=== PATIENT | male | born 1945 | race Hispanic/Latino ===

== ENCOUNTER 2017-04-17 07:47 | Day surgery (SDC) | payer MEDICARE, OTHER ==
[2017-04-08 09:32] VITALS: BMI 29.8
[2017-04-08 11:11] VITALS: RESP 18
[2017-04-17] MEDS ORDERED: Lactated Ringer's 1,000 ML IV ONE ×2 (07:48→07:50)
[2017-04-17] MEDS ORDERED: Lidocaine 1% Inj (20ml) IJ ONE ×3 (07:55→10:01)
[2017-04-17] MEDS ORDERED: Bupivacaine 0.5% 50 ML IJ ONE (08:35)
--- NOTE | 2017-04-17 08:39 | CP.PCM.PN ---
Subjective - Date & Time of Evaluation Date of Evaluation: 04/17/17 Time of Evaluation: 08:38 - Subjective Subjective: 72 y/o male seen in [facility] by podiatry. Pt going to OR this morning for R hallux removal of staple with removal of bone prominence and application of graft. Patient confirms NPO status. Pt questions addressed and answered. Pt denies F/C/ N/V/SOB. PMH: DM type II, HTN PSH: R foot surgery, R knee surgery, R nephrectomy All: NKDA Social: social EtOH; denies cigarette or illicit drug use Objective - Vital Signs/Intake and Output Vital Signs (last 24 hours): Temp Pulse Resp BP Pulse Ox 96.8 F L 56 L 18 140/70 04/08/17 11:09 04/08/17 11:09 04/08/17 11:09 04/08/17 11:09 - Constitutional Appears: Well, Non-toxic, No Acute Distress - Extremities Exam Additional comments: RLE focused exam: Dressing to RLE clean, dry and intact Vasc: DP/PT pulses 2/4. Neuro: Protective sensation grossly diminished - Neurological Exam Neurological Exam: Alert, Awake, Oriented x3 - Psychiatric Exam Psychiatric exam: Normal Affect, Normal Mood Assessment and Plan - Assessment and Plan (Free Text) Assessment: 72 y/o male presents to [facility] for R hallux exostectomy, removal of staple and application of graft Plan: Pt was seen and examined in [facility]. Pt NPO status was confirmed. All Pre-op testing and clearance was in the chart. Pt has exhausted all conservative treatment at this time and is opting for surgical intervention. Pt was explained procedure and post-operative course. All pt's questions were answered to satisfaction. No guarantees were made. Pt understands all risks, benefits and complications of procedure. Pt will follow-up with Dr. Alvarez
[2017-04-17] MEDS ORDERED: Propofol 10 mg/ml Inj (20 ML) ONE (09:19)
[2017-04-17] MEDS ORDERED: Bupivacaine 0.5% Inj(30mL) IJ ONE (09:22)
[2017-04-17] MEDS ORDERED: ceFAZolin 2 GM in Sodium Chloride 0.9% 100 ML IVPB ONE (09:22)
--- NOTE | 2017-04-17 09:25 | CP.SDSHP ---
Same Day Surgery H & P - History Proposed Procedure: R hallux exostectomy, removal of staple, application of graft Pre-Op Diagnosis: R hallux painful hardware, chronic ulcer - Previous Medical/Surgical History Cardiac: Hypertension Endocrine/Metabolic: Diabetes Pain: 4.Moderate Pain Previous Surgical History: R hallux IPJ fusion, R knee surgery, R nephrectomy - Allergies Allergies: Allergies No Known Allergies Allergy (Verified 10/10/15 10:02) - Physical Exam General Appearance: well nourished, in NAD Vital Signs: Vital Signs 04/17/17 04/17/17 08:39 08:50 Temperature 97.8 F Pulse Rate 50 L 50 L Respiratory 18 Rate Blood Pressure 159/68 H O2 Sat by Pulse 98 Oximetry Neuro: Other (protective sensation grossly diminished to R foot) - {Optional Preform as Required} Integument: Other (R hallux ulceration) Ortho: Other (tenderness to palpation of dorsum of R hallux) Short Stay Discharge - Short Stay Discharge Admitting Diagnosis/Reason for Visit: L97.512/E10.40 Disposition: HOME/ ROUTINE Referrals: Margaret Laura MD [Primary Care Provider] - Instructions: RICE Therapy (GEN) Additional Instructions (Diet, Activity): --Patient in good/stable condition for discharge home. Pt to resume medications per medical reconciliation. Resume regular diet. Please keep dressing clean, dry, & intact to surgical site, use plastic bag over bandage for showering, wear post op shoe at all times when ambulating, call clinic if you see signs of infection (redness, swelling, malodor), please make an appointment to see Dr. Alvarez in office/clinic within 1 week for post-op check. Progress Note/Discharge Note with Instructions: - Patient evaluated bedside in recovery s/p surgical procedure. - After surgical procedure patient in NAD - (+) Void, (+) Appetite - Capillary refill time <3s and NVSI intact. - Patient denies complaints at this time - Post operative instructions and plan of care explained to patient at length. - Pt. acknowledges understanding. - Patient stable for DC per podiatric surgery
[2017-04-17] MEDS ORDERED: Oxycodone/Acetaminophen 5/325 mg Tab PO PRN ×2 (11:18)
[2017-04-17] MEDS ORDERED: Lactated Ringer's 1,000 ML IV SCH (11:23)
--- NOTE | 2017-04-17 11:23 | PCM.SURG1 ---
Surgeon's Initial Post Op Note - Surgeon's Notes Surgeon: Dr. Alvarez Vice President [employer]: Seb King PGY-1, Nish Galan PGY-1 Type of Anesthesia: General LMA, Local Anesthesia Administered By: Dr. Taylor Pre-Operative Diagnosis: painful hardware R hallux, chronic non healing ulcer R hallux Operative Findings: see op report. I: 6cc 1% Lidocaine plain. M: 3-0 Vicryl, 4 -0 Vicryl, 4-0 Nylon, 4.0 x 4.5 cm Epifix allograft. specimen: R 1st digit base of proximal phalanx. tourniquet time 67 min R ankle Post-Operative Diagnosis: same Operation Performed: R hallux removal of hardware, debridement of proximal phalanx, application of Epifix Specimen/Specimens Removed: R 1st digit proximal phalangeal base Estimated Blood Loss: EBL {In ML}: 5 Blood Products Given: N/A Drains Used: No Drains Post-Op Condition: Good Date of Surgery/Procedure: 04/17/17 Time of Surgery/Procedure: 10:25
[2017-04-17 14:25] VITALS: TEMP 98.2
[2017-04-17 15:05] VITALS: BP 130/67; PULSE 49; O2SAT 97
--- NOTE | 2017-04-18 01:40 | OP ---
PROCEDURE DATE: 04/17/2017 SURGEON: Wilton Alvarez DPM CAB SUPERVISOR: Seb King DPM PGY1 and Nish Galan DPM PGY 1 ANESTHESIOLOGIST: Dr. Taylor. ANESTHESIA: IV sedation with local. PREOPERATIVE DIAGNOSES: Painful hardware of the right hallux, chronic nonhealing ulcer, right hallux. POSTOPERATIVE DIAGNOSES: Painful hardware of the right hallux, chronic nonhealing ulcer, right hallux. PROCEDURE: Removal of painful hardware with debridement of base of the proximal phalanx with application of EpiFIX graft on Right hallux INDICATIONS: The patient is a 72-year-old male with above diagnosis. The patient has exhausted all conservative treatment at this time and now require surgical intervention. The patient signed the consent after careful explanation of risks, benefits, complications, and alternatives for this surgical procedure. No guarantees were given nor implied. N.p.o. status was confirmed prior to taking the patient to the OR. PREPARATION: The patient was brought into the operating room and placed on the operating room table in a supine position. A time-out was performed for identification of the correct patient and procedure. After induction of IV sedation, the patient received a local 6 mL of 1% lidocaine plain in local block-type fashion to the right medial forefoot. Tourniquet was placed and set at 250 mmHg on the right ankle. The right foot was then prepped and draped in normal saline manner and the procedure began. PROCEDURE: Attention was driven to the right dorsal hallux where the incision extending from the level of MTPJ to the DIPJ was planned and marked using a marking pen. Tourniquet on the right ankle was inflated at this time and the procedure began. Using a #15 blade, a linear incision was placed along the planned site. After a careful identification of all the anatomy, a careful incision was placed and extended to the level of bone. At this time using the sagittal saw approximately 1/6th of the base of the right hallucal proximal phalanx was resected and sent of the operative filed to pathology. Using a football bur, the dorsal aspect of the proximal phalanx was debrided to create a smooth surface. At this time, the attention was driven towards the staple embedded distal lateral aspect of the proximal phalanx. Using a freer, the painful hardware was removed and passed off the operative field. Surgical site was flushed with copious amounts of sterile saline and the EpiFix graft was placed into the surgical bed near the plantar aspect at the level of the MTPJ. 3-0 Vicryl and 4-0 Vicryl were utilized to reapproximate the fascial layer and was brought together. A 4-0 nylon was used to reapproximate the skin and sutures were placed using simple technique. At this time, plantar chronic ulcer was debrided to provide fresh bleeding. EpiFix graft was placed superior to the ulcerated site. EpiFix graft was also held secure at the level of the chronic ulcerated site at the level of sub metatarsal head 1 using Steri-Strips. A fluff dressing was applied to the surgical site using 4 x 4, Kaylie and an Janes bandage. At this time, tourniquet was deflated at 61 minutes. POSTOPERATIVE CONDITION: The patient tolerated the anesthesia and procedure well and was escorted to the recovery room with vital signs stable and neurovascular status intact to the right lower extremity. This patient is to remain full weightbearing to the right lower extremity as tolerated using a surgical shoe. The patient is to followup with Dr. Alvarez in his office. Seb King DPM RICHARD
--- NOTE | 2017-04-18 13:06 | RAD ---
PROCEDURE: Right Foot Radiographs. HISTORY: s/p right foot surgery COMPARISON: 2011. FINDINGS: BONES: Chronic stress fracture of the 2nd metatarsal shaft with exuberant soft tissue calcification. Degenerative changes of the 1st interphalangeal joint and 1st metatarsophalangeal joint with subchondral sclerosis and cyst formation. Associated soft tissue calcification with focal lucency in the subchondral region of the 3rd metatarsal head as well. JOINTS: As above. SOFT TISSUES: Normal. OTHER FINDINGS: None. IMPRESSION: Re- demonstration of severe osteoarthritis and chronic fracture of the a 2nd metatarsal.
== END 2017-04-17 15:50 | disposition home or self-care (01) ==
LOC: H.OPSURG 07:47
PROVIDERS: ATTEND Podiatrist Foot & Ankle Surgery
DX: L97.512 Non-pressure chronic ulcer of other part of right foot with fat layer exposed (principal); E10.40 Type 1 diabetes mellitus with diabetic neuropathy, unspecified; I10 Essential (primary) hypertension; M10.9 Gout, unspecified; N40.0 Benign prostatic hyperplasia without lower urinary tract symptoms; F32.9 Major depressive disorder, single episode, unspecified
CPT/HCPCS: 15002; 15271; 20680; 73630; 82948; 88304; J0690; J2405; J2704; J3010; J7030; J7120; Q4131

== ENCOUNTER 2017-09-18 11:30 | Day surgery (SDC) | payer MEDICARE, OTHER ==
[2017-04-08 09:32] VITALS: BMI 29.8
[2017-09-18] MEDS ORDERED: Lidocaine 1% Inj (20ml) ONE (13:27)
[2017-09-18] MEDS ORDERED: Mineral Oil Light Sterile 25 ml ONE (13:27)
[2017-09-18] MEDS ORDERED: Bupivacaine 0.5% Inj(30mL) ONE (13:27)
--- NOTE | 2017-09-18 13:27 | CP.SDSHP ---
Same Day Surgery H & P - History Proposed Procedure: Debridement of foot ulcer - right foot Pre-Op Diagnosis: Right foot chronic ulceration - Allergies Allergies: Allergies No Known Allergies Allergy (Verified 09/18/17 12:01) - Physical Exam Vital Signs: Vital Signs 09/18/17 12:28 Temperature 98.2 F Pulse Rate 47 L Respiratory 18 Rate Blood Pressure 119/63 O2 Sat by Pulse 100 Oximetry - {Optional Preform as Required} Integument: Other - Date & Time Date: 09/18/17 Time: 13:27 Short Stay Discharge - Short Stay Discharge Admitting Diagnosis/Reason for Visit: E10.621,L97.512 Disposition: HOME/ ROUTINE Referrals: Darrick Funk MD [Primary Care Provider] - Additional Instructions (Diet, Activity): -Patient in good/stable condition for discharge home -Pt to resume medications per medical reconciliation -Resume regular diet Please keep dressing clean, dry, & intact to surgical site -Use plastic bag over bandage for showering -Wear post op shoe at all times when ambulating -Call clinic if you see signs of infection (redness, swelling, malodor) -Please make an appointment to see Dr. Alvarez in office/clinic within 1 week for post-op check Progress Note/Discharge Note with Instructions: - Patient evaluated bedside in recovery s/p surgical procedure. - After surgical procedure patient in NAD - (+) Void, (+) Appetite - Capillary refill time <3s and NVSI intact. - Patient denies complaints at this time - Post operative instructions and plan of care explained to patient at length. - Pt. acknowledges understanding. - Patient stable for DC per podiatric surgery
--- NOTE | 2017-09-18 13:29 | CP.PCM.PN ---
Subjective - Date & Time of Evaluation Date of Evaluation: 09/18/17 Time of Evaluation: 13:27 - Subjective Subjective: 72 year old male patient seen and evaluated in [facility] by podiatry. Patient going to OR today for R hallux application of graft. Patient reports that he was told the case will be under local anesthesia so has not remained NPO. Patient questions addressed and answered. Patient denies F/C/N/V/SOB. PMH: DM type II, HTN PSH: R foot surgery, R knee surgery, R nephrectomy All: NKDA Social: social EtOH; denies cigarette or illicit drug use Objective - Vital Signs/Intake and Output Vital Signs (last 24 hours): Temp Pulse Resp BP Pulse Ox 98.2 F 47 L 18 119/63 100 09/18/17 12:28 09/18/17 12:28 09/18/17 12:28 09/18/17 12:28 09/18/17 12:28 - Constitutional Appears: Well, Non-toxic, No Acute Distress - Extremities Exam Additional comments: Dressing is clean, dry and intact with no strikethrough noted - Neurological Exam Neurological Exam: Alert, Awake, Oriented x3 - Psychiatric Exam Psychiatric exam: Normal Affect, Normal Mood Assessment and Plan - Assessment and Plan (Free Text) Assessment: 72 y/o male presents to [facility] for R hallux application of graft Plan: Pt was seen and examined in [facility]. Pt NPO status was confirmed. All Pre-op testing and clearance was in the chart. Pt has exhausted all conservative treatment at this time and is opting for surgical intervention. Pt was explained procedure and post-operative course. All pt's questions were answered to satisfaction. No guarantees were made. Pt understands all risks, benefits and complications of procedure. Pt will follow-up with Dr. Alvarez
[2017-09-18] MEDS ORDERED: Lidocaine 1% Inj (20ml) IJ ONE (13:32)
[2017-09-18] MEDS ORDERED: Bupivacaine 0.5% Inj(30mL) IJ ONE (13:32)
[2017-09-18] MEDS ORDERED: Sodium Chloride 0.9% 1,000 ML IV SCH (13:45)
[2017-09-18] MEDS ORDERED: Bacitracin Ointment 30 GM TUBE ONE (14:48)
--- NOTE | 2017-09-18 15:34 | PCM.SURG1 ---
Surgeon's Initial Post Op Note - Surgeon's Notes Surgeon: Dr. Wilton Alvarez DPM Carton Liner: Dr. Christian Monsalve DPM PGY-1 Type of Anesthesia: Local Anesthesia Administered By: RN Pre-Operative Diagnosis: Right foot chronic wound Operative Findings: See dictation. M: none. I: Amniovo Post-Operative Diagnosis: Same Operation Performed: Right foot wound debridement with application of sythentic graft Specimen/Specimens Removed: none Estimated Blood Loss: EBL {In ML}: 2 Blood Products Given: N/A Drains Used: No Drains Post-Op Condition: Good Date of Surgery/Procedure: 09/18/17 Time of Surgery/Procedure: 15:33
[2017-09-18 15:49] VITALS: TEMP 98
[2017-09-18 16:58] VITALS: BP 145/78; PULSE 50; RESP 20; O2SAT 97
--- NOTE | 2017-09-28 08:25 | OP ---
PROCEDURE DATE: 09/18/2017 PREOPERATIVE DIAGNOSIS: Chronic wound of plantar right foot. POSTOPERATIVE DIAGNOSIS: Chronic wound of plantar right foot. PROCEDURE: Right foot wound debridement and application of synthetic graft. SURGEON: Wilton Alvarez DPM USER INTERFACE DEVELOPER: Christian Monsalve DPM TYPE OF ANESTHESIA: None. ANESTHESIA ADMINISTERED BY: RN. INDICATIONS: The patient is a 72-year-old male with the above diagnosis. The patient has exhausted all conservative treatments at this time and now requires surgical intervention. The patient signed consent after careful explanation of risks, benefits, complications, and alternatives for surgical procedure. No guarantees were given nor implied. N.p.o. status was confirmed prior to taking the patient to the OR. PREPARATION: The patient was brought into the operating room and placed on the operating room table in a supine position. Timeout was performed for identification of the correct patient and procedure. No tourniquet was used during this procedure and the right lower extremity was prepped and draped in the normal sterile manner. DESCRIPTION OF PROCEDURE: PROCEDURE #1. Attention was then turned to the plantar right foot where a chronic nonhealing ulceration with a hypergranular base measuring 1 cm x 1.2 cm was noted. Using a fresh #15 blade, the hypergranular tissue at the base of the ulcer was debrided down to an appropriate level with healthy bleeding noted. All hyperkeratotic tissue surrounding the ulceration site was debrided down to a normal epidermal level. Once this was completed, 1 mL of Amniovo was injected to multiple areas in and around the wound edges. Following this, an EpiFix synthetic skin graft was applied to the surgical site and held in place using a steri-strip. The wound was then dressed with Adaptic and dry sterile dressing. POSTOPERATIVE CONDITION: The patient tolerated the procedure well and was escorted to the recovery room with vital signs stable and neurovascular status intact to the right lower extremity. The patient is to remain partial weightbearing to his right foot and is to follow up with Dr. Alvarez in his private office in 1 week's time for further evaluation to ensure the healing process is progressing in an appropriate manner. Christian Monsalve DPM Wilton Alvarez DPM [facility] # [id number] R[place]ARD
== END 2017-09-18 16:55 | disposition home or self-care (01) ==
LOC: H.OPSURG 11:30
PROVIDERS: ATTEND Podiatrist Foot & Ankle Surgery
DX: E10.621 Type 1 diabetes mellitus with foot ulcer (principal); L97.512 Non-pressure chronic ulcer of other part of right foot with fat layer exposed; I10 Essential (primary) hypertension
CPT/HCPCS: 15275; 82948; J7030; J7040; Q4131; Q4139

== ENCOUNTER 2018-02-02 19:25 | Inpatient (IN) | payer MEDICARE, OTHER ==
[2018-02-02 19:25] VITALS: BMI 29.4
[2018-02-02] MEDS ORDERED: Sodium Chloride 0.9% 1,000 ML IV STA (21:24)
--- NOTE | 2018-02-02 21:42 | ED PDOC ---
HPI: General Adult Time Seen by Provider: 02/02/18 19:53 Chief Complaint (Nursing): Fever Chief Complaint (Provider): Fever History Per: Patient History/Exam Limitations: no limitations Onset/Duration Of Symptoms: Days (x1) Current Symptoms Are (Timing): Still Present Additional Complaint(s): 72 year old male presents to the ED with a fever for 1 day. Patient denies vomiting and diarrhea but has mild leg swelling. Denies abdominal pain, CP, and SOB. Patient had a cardiac angio on Thursday with Dr. Keith.(however when i spoke to dr keith he clarified it was not with him, it was with someone else, at [facility]) PMD: Brenda Edmonds Past Medical History Reviewed: Historical Data, Nursing Documentation, Vital Signs Vital Signs: Last Vital Signs Temp 98 F 02/03/18 04:50 Pulse 65 02/03/18 04:50 Resp 18 02/03/18 04:50 BP 145/70 02/03/18 04:50 Pulse Ox 98 02/03/18 04:50 - Medical History PMH: Arthritis, Benign Prostatic Hyperplasia, Depression, Diabetes, HTN, Hypercholesterolemia, Kidney Stones, Chronic Kidney Disease - Surgical History Other surgeries: Knee replacement - Family History Family History: States: Unknown Family Hx - Social History Current smoker - smoking cessation education provided: No Alcohol: None Drugs: Denies - Home Medications Home Medications: Ambulatory Orders Medication Instructions Recorded Allopurinol [Zyloprim] 300 mg PO DAILY 10/19/15 Aspirin [Aspirin Chewable] 81 mg PO DAILY 10/19/15 Atorvastatin [Lipitor] 10 mg PO DAILY 10/19/15 Finasteride [Proscar] 5 mg PO DAILY 10/19/15 Insulin Aspart, Recombinant 20 unit SC BID 10/19/15 [Novolog] Insulin Detemir [Levemir] 50 unit SC BID 10/19/15 Lisinopril [Zestril] 20 mg PO BID 10/19/15 Pregabalin [Lyrica] 150 mg PO BID 10/19/15 Sertraline [Zoloft] 50 mg PO DAILY 10/19/15 - Allergies Allergies/Adverse Reactions: Allergies Allergy/AdvReac Type Severity Reaction Status Date / Time No Known Allergies Allergy Verified 02/02/18 19:39 Review of Systems ROS Statement: Except As Marked, All Systems Reviewed And Found Negative Constitutional: Positive for: Fever Cardiovascular: Negative for: Chest Pain Respiratory: Negative for: Shortness of Breath Gastrointestinal: Negative for: Vomiting, Abdominal Pain, Diarrhea Musculoskeletal: Positive for: Other (mild leg swelling) Physical Exam - Reviewed Nursing Documentation Reviewed: Yes Vital Signs Reviewed: Yes - Physical Exam Appears: Positive for: Non-toxic, No Acute Distress Head Exam: Positive for: ATRAUMATIC, NORMOCEPHALIC Skin: Positive for: Normal Color, Warm, Dry Eye Exam: Positive for: Normal appearance Neck: Positive for: Normal, Painless ROM Cardiovascular/Chest: Positive for: Regular Rate, Rhythm. Negative for: Murmur Respiratory: Positive for: Normal Breath Sounds. Negative for: Wheezing, Respiratory Distress Gastrointestinal/Abdominal: Positive for: Normal Exam, Soft. Negative for: Tenderness Extremity: Positive for: Normal ROM Neurologic/Psych: Positive for: Alert, Oriented. Negative for: Motor/Sensory Deficits - Laboratory Results Result Diagrams: 02/02/18 21:48 02/03/18 04:20 - ECG O2 Sat by Pulse Oximetry: 98 (RA) Pulse Ox Interpretation: Normal Medical Decision Making Medical Decision Making: Initial Impression: fever post angiogram several days ago rule out penumonia, uti, other sources Initial Plan: CMP CBC Chest X-ray Glucose Sodium chloride 1000mL IV Tylenol 650mg PO Blood culture Urine C&S Urinalysis 22:[address] Keith cardiology and Dr. Ball who is ID . Dr. Ball is requesting 1gm of vancomycin and to admit to hospitalist.. 23:00 Dr. Linder accepted patient for admission. 23:43 -Right foot toes are noted to be slightly erythematous. Hematoma on left upper extremity shows no cellulitis. 23:46 -Patient has a surgical history of right foot debridement. Scribe Attestation: Documented by Mynor Lopez acting as a scribe for Stephanie Michaud MD. Provider Scribe Attestation: All medical record entries made by the Scribe were at my direction and personally dictated by me. I have reviewed the chart and agree that the record accurately reflects my personal performance of the history, physical exam, medical decision making, and the department course for this patient. I have also personally directed, reviewed, and agree with the discharge instructions and disposition. Disposition - Clinical Impression Clinical Impression: Fever in adult - Patient ED Disposition Is Patient to be Admitted: Yes Counseled Patient/Family Regarding: Studies Performed, Diagnosis - Disposition Disposition Time: 23:45 Condition: STABLE
[2018-02-02 21:59] LABS: SQUAMOUS EPITHIAL < 1 /hpf (0-5); URINE BILIRUBIN NEGATIVE (NEGATIVE); URINE BLOOD SMALL (NEGATIVE); URINE CLARITY SLIGHTY-CLOUDY (Clear); URINE COLOR YELLOW (YELLOW); URINE GLUCOSE (UA) >=500 mg/dL (Normal); URINE LEUKOCYTE ESTERASE NEG Leu/uL (Negative); URINE PROTEIN >=500 mg/dL (NEGATIVE); URINE UROBILINOGEN 0.2-1.0 mg/dL (0.2-1.0)
[2018-02-02 22:00] LABS: BASO # 0.1 K/uL (0.0-0.2); BASO % 0.4 % (0.0-2.0); EOS # 0.1 K/uL (0.0-0.7); EOS % 0.4 % (0.0-4.0); HEMOGLOBIN 14.3 g/dL (12.0-18.0); LYMPH # 1.1 K/uL (1.0-4.3); LYMPH % 8.2 % (20.0-40.0); MEAN CELL VOLUME 82.2 fl (80.0-94.0); MEAN CORPUSCULAR HGB CONC 32.8 g/dL (33.0-37.0); MEAN PLATELET VOLUME 9.2 fl (7.2-11.7); MONO % 7.6 % (0.0-10.0); NEUT # 11.6 K/uL (1.8-7.0); NEUT % 83.4 % (50.0-75.0); PLATELET COUNT 149 K/uL (130-400); RBC 5.31 Mil/uL (4.40-5.90); WHITE BLOOD COUNT 13.8 K/uL (4.8-10.8)
[2018-02-02 22:05] LABS: ALB/GLOB RATIO 1.4 (1.0-2.1); ALBUMIN 4.3 g/dL (3.5-5.0); ALT/SGPT 21 U/L (21-72); AST/SGOT 16 U/L (17-59); BLOOD UREA NITROGEN 23 mg/dl (9-20); CALCIUM 9.7 mg/dL (8.4-10.2); GFR AFRICAN-AMERICAN > 60; GFR NON-AFRICAN AMERICAN 59
[2018-02-02 22:52] LABS: BANDS 4 % (0-2); EOSINOPHIL 1 % (0-7); LYMPHOCYTE 6 % (20-50); MONOCYTE 2 % (0-10); NEUTROPHIL 79 % (42-75); REACTIVE LYMPHOCYTES 8 % (0-0); TOTAL CELLS COUNTED 100
[2018-02-02 22:53] LABS: ANISOCYTOSIS SLIGHT; OVALOCYTES SLIGHT; POIKILOCYTOSIS SLIGHT
[2018-02-02 22:54] LABS: PLATELET ESTIMATE NORMAL (NORMAL)
[2018-02-02] MEDS ORDERED: Vancomycin 1 g Inj ONE (23:08)
--- NOTE | 2018-02-02 23:11 | CP.PCM.HP ---
History of Present Illness - History of Present Illness History of Present Illness: ID: Dr Ball, [facility] safe deposit attendant: Dr Vaughn Chief Complaint: Fever The patient was seen and examined in the ED HPI: 72 years old male with hx of DM, chronic non healing right great toe ulcer , CKD with Cardio Catheterization done on 01/29/18 through the left radial artery approach. He comes with fever that began today, along with chills and mild dizziness. No coughing, nausea, vomits. No throat ache, SOB, chest pain, abdominal pain, Diarrhea, Dysuria. PMH: Arthritis, BPH, Depression, DM II, HTN, HLD, Kidney Stones, CKD;Chronic right gret toe wound;Falls/Unsteady gait PSH: Right knee replacement; right Nephrectomy; Cataract surgery SH: No illegal drug use; No Alcohol; No cigarette smoking FH: States: No known family Hx Allergies: NKDA Medication: Reviewed Present on Admission - Present on Admission Any Indicators Present on Admission: No History of DVT/PE: No History of Uncontrolled Diabetes: No Urinary Catheter: No Decubitus Ulcer Present: No Review of Systems - Constitutional Constitutional: Chills, Fever, Frequent Falls. absent: Headache, Lethargy - EENT Eyes: Requires Corrective Lenses. absent: Blurred Vision, Diplopia, Floaters, Sees Flashes Ears: absent: Decreased Hearing, Ear Discharge, Tinnitus Nose/Mouth/Throat: absent: Epistaxis, Nasal Congestion, Sinus Pain, Sinus Pressure - Cardiovascular Cardiovascular: Lightheadedness. absent: Chest Pain, Dyspnea, Palpitations - Respiratory Respiratory: absent: Cough, Dyspnea, Wheezing, Stridor - Gastrointestinal Gastrointestinal: Constipation. absent: Abdominal Pain, Diarrhea, Nausea, Vomiting - Genitourinary Genitourinary: absent: Dysuria, Flank Pain, Urinary Frequency - Musculoskeletal Musculoskeletal: Arthralgias Additional comments: Right total knee replacement - Integumentary Integumentary: absent: Pruritus, Rash Additional comments: bilateral leg swelling Right great toe ulceration - Neurological Neurological: absent: Confusion, Dizziness, Focal Weakness, Headaches, Weakness - Psychiatric Psychiatric: absent: Anxiety, Depression, Panic Attacks - Endocrine Endocrine: absent: Palpitations, Polydipsia, Polyphagia, Polyuria - Hematologic/Lymphatic Hematologic: absent: Easy Bleeding, Easy Bruising Past Patient History - Past Medical History & Family History Past Medical History?: Yes - Past Social History Smoking Status: Never Smoked Chewing Tobacco Use: No Cigar Use: No Alcohol: None Drugs: Denies Home Situation {Lives}: With Family - CARDIAC Hx Hypercholesterolemia: Yes Hx Hypertension: Yes - PULMONARY Hx Respiratory Disorders: No - NEUROLOGICAL Hx Neurological Disorder: Yes Other/Comment: NUMBNESS FEET - HEENT Hx Cataracts: Yes Other/Comment: RETINA(LASER TX) - RENAL Hx Chronic Kidney Disease: Yes Hx Kidney Stones: Yes - ENDOCRINE/METABOLIC Hx Endocrine Disorders: Yes Hx Diabetes Mellitus Type 1: Yes - HEMATOLOGICAL/ONCOLOGICAL Hx Blood Disorders: No - INTEGUMENTARY Hx Dermatological Problems: No Other/Comment: DIABETIC ULCER - MUSCULOSKELETAL/RHEUMATOLOGICAL Hx Arthritis: Yes - GASTROINTESTINAL Hx Gastrointestinal Disorders: No - GENITOURINARY/GYNECOLOGICAL Hx Prostate Problems: Yes Other/Comment: BPH-ENLARGE PROSTATE - PSYCHIATRIC Hx Depression: Yes - SURGICAL HISTORY Hx Surgeries: Yes Hx Cataract Extraction: Yes Hx Cardiac Catheterization: Yes (January 2018) Hx Joint Replacement: Yes Hx Orthopedic Surgery: Yes (Right TKR) Other/Comment: RIGHT TOTAL KNEE ARTHROPLASTY/RIGHT NEPHRECTOMY - ANESTHESIA Hx Anesthesia: Yes Hx Anesthesia Reactions: No Hx Malignant Hyperthermia: No Meds Allergies/Adverse Reactions: Allergies Allergy/AdvReac Type Severity Reaction Status Date / Time No Known Allergies Allergy Verified 02/02/18 19:39 Physical Exam - Constitutional Appears: No Acute Distress - Head Exam Head Exam: ATRAUMATIC, NORMAL INSPECTION, NORMOCEPHALIC - Eye Exam Eye Exam: EOMI, Normal appearance Pupil Exam: NORMAL ACCOMODATION, PERRL - ENT Exam ENT Exam: Mucous Membranes Moist, Normal Exam, Normal External Ear Exam - Neck Exam Neck exam: Positive for: Full Rom, Normal Inspection. Negative for: Lymphadenopathy, Tenderness - Respiratory Exam Respiratory Exam: Clear to Auscultation Bilateral. absent: Rales, Rhonchi, Wheezes - Cardiovascular Exam Cardiovascular Exam: REGULAR RHYTHM, RRR, +S1, +S2. absent: Gallop, JVD - GI/Abdominal Exam GI & Abdominal Exam: Normal Bowel Sounds. absent: Mass, Organomegaly, Soft, Tenderness - Rectal Exam Rectal Exam: Deferred - Extremities Exam Additional comments: ulceration at plantar aspect of the right great toe with blackened coloration. - Back Exam Back exam: NORMAL INSPECTION. absent: CVA tenderness (L), CVA tenderness (R) - Neurological Exam Neurological exam: Alert, CN II-XII Intact, Oriented x3, Reflexes Normal - Psychiatric Exam Psychiatric exam: Normal Affect, Normal Mood - Skin Skin Exam: Dry, Normal Color, Warm Results - Vital Signs Recent Vital Signs: Last Vital Signs Temp 101.2 F H 02/02/18 22:46 Pulse 86 02/02/18 22:46 Resp 20 02/02/18 22:46 BP 140/74 02/02/18 22:46 Pulse Ox 98 02/02/18 23:01 - Labs Result Diagrams: 02/02/18 21:48 02/02/18 21:48 Labs: Laboratory Results - last 24 hr 02/02/18 02/02/18 02/02/18 19:40 20:00 21:48 WBC 13.8 H D RBC 5.31 Hgb 14.3 Hct 43.6 MCV 82.2 D MCH 27.0 MCHC 32.8 L RDW 17.0 H Plt Count 149 MPV 9.2 Neut % (Auto) 83.4 H Lymph % (Auto) 8.2 L [place] % (Auto) 7.6 Eos % (Auto) 0.4 Baso % (Auto) 0.4 Neut # (Auto) 11.6 H Lymph # (Auto) 1.1 [place] # (Auto) 1.0 H Eos # (Auto) 0.1 Baso # (Auto) 0.1 Neutrophils % (Manual) 79 H Band Neutrophils % 4 H Lymphocytes % (Manual) 6 L Reactive Lymphs % 8 H Monocytes % (Manual) 2 Eosinophils % (Manual) 1 Platelet Estimate Normal Poikilocytosis (manual Slight Anisocytosis (manual) Slight Ovalocytes Slight Sodium Potassium Chloride Carbon Dioxide Anion Gap BUN Creatinine Est GFR ( Amer) Est GFR (Non-Af Amer) POC Glucose (mg/dL) 293 H 248 H Random Glucose Calcium Total Bilirubin AST ALT Alkaline Phosphatase Total Protein Albumin Globulin Albumin/Globulin Ratio Urine Color Urine Clarity Urine pH Ur Specific [place] Urine Protein Urine Glucose (UA) Urine Ketones Urine Blood Urine Nitrate Urine Bilirubin Urine Urobilinogen Ur Leukocyte Esterase Urine RBC (Auto) Urine Microscopic WBC Ur Squamous Epith Cells 02/02/18 02/02/18 21:48 21:48 WBC RBC Hgb Hct MCV MCH MCHC RDW Plt Count MPV Neut % (Auto) Lymph % (Auto) [place] % (Auto) Eos % (Auto) Baso % (Auto) Neut # (Auto) Lymph # (Auto) [place] # (Auto) Eos # (Auto) Baso # (Auto) Neutrophils % (Manual) Band Neutrophils % Lymphocytes % (Manual) Reactive Lymphs % Monocytes % (Manual) Eosinophils % (Manual) Platelet Estimate Poikilocytosis (manual Anisocytosis (manual) Ovalocytes Sodium 137 Potassium 3.8 Chloride 100 Carbon Dioxide 26 Anion Gap 15 BUN 23 H Creatinine 1.2 Est GFR ( Amer) > 60 Est GFR (Non-Af Amer) 59 POC Glucose (mg/dL) Random Glucose 158 H Calcium 9.7 Total Bilirubin 1.1 AST 16 L ALT 21 Alkaline Phosphatase 85 Total Protein 7.5 Albumin 4.3 Globulin 3.2 Albumin/Globulin Ratio 1.4 Urine Color Yellow Urine Clarity Slighty-cloudy Urine pH 5.0 Ur Specific [place] 1.015 Urine Protein >=500 Urine Glucose (UA) >=500 Urine Ketones Negative Urine Blood Small Urine Nitrate Negative Urine Bilirubin Negative Urine Urobilinogen 0.2-1.0 Ur Leukocyte Esterase Neg Urine RBC (Auto) 4 H Urine Microscopic WBC < 1 Ur Squamous Epith Cells < 1 - Impressions Impression: NSR with 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 Fever #. Leukocytosis #. Dehydration #. DM II with hyperglycemia #. Chronic non healing ulcer at right great toe Plan: 72 years old male with hx of DM, chronic non healing right great toe ulcer, CKD with Cardio Catheterization done on 01/29/18 through the left radial artery approach. He comes with fever that began today, along with chills and mild dizziness. No coughing, nausea, vomits. No throat ache, SOB, chest pain, abdominal pain, Diarrhea, Dysuria. #. Fever etiology unclear in patient who recently had a cardiac cath but also has a chronic non healing ulcer at the right great toe, r/o endocarditis - Consult Dr Ball ID - Consult Dr Vaughn cardiology - Blood culture - Urine culture - ECHO - Vancomycin - #. Leukocytosis - Follow WBC #. Dehydration - IV fluids - Follow renal labs #. DM II with hyperglycemia - Levemir - Lispro sliding scale according to accucheck - HbA1c #. Chronic non healing ulcer at right great toe - consult Dr Alvarez podiatry #. DVT prophylaxis with Lovenox #. Code Status: Full - Date & Time Date: 02/02/18 Time: 23:11
[2018-02-02 23:21] LABS: VENOUS BLOOD GAS BASE EXCESS 1.6 mmol/L (0.0-2.0); VENOUS BLOOD GAS PCO2 33 mmHg (40-60); VENOUS BLOOD GAS PO2 41 mm/Hg (30-55); VENOUS BLOOD PH 7.48 (7.32-7.43)
[2018-02-03] MEDS: Sodium Chloride 0.9% 1,000 ML IV SCH ×3 (01:45→22:08)
[2018-02-03 05:47] LABS: BASO % 0.4 % (0.0-2.0); EOS % 0.4 % (0.0-4.0); HEMOGLOBIN 12.7 g/dL (12.0-18.0); LYMPH # 1.3 K/uL (1.0-4.3); LYMPH % 12.4 % (20.0-40.0); MEAN CELL VOLUME 83.5 fl (80.0-94.0); MEAN CORPUSCULAR HEMOGLOBIN 27.5 pg (27.0-31.0); MEAN PLATELET VOLUME 9.2 fl (7.2-11.7); MONO % 9.4 % (0.0-10.0); NEUT # 8.2 K/uL (1.8-7.0); NEUT % 77.4 % (50.0-75.0); RBC 4.62 Mil/uL (4.40-5.90); RED CELL DISTRIBUTION WIDTH 16.8 % (11.5-14.5); WHITE BLOOD COUNT 10.6 K/uL (4.8-10.8)
[2018-02-03 05:57] LABS: BLOOD UREA NITROGEN 20 mg/dl (9-20); CALCIUM 8.6 mg/dL (8.4-10.2); GFR AFRICAN-AMERICAN > 60; GFR NON-AFRICAN AMERICAN > 60
[2018-02-03] MEDS: Insulin Lispro (humaLOG) 100 Units/ml Inj SC SCH ×4 (06:44→22:09)
--- NOTE | 2018-02-03 09:25 | CP.PCM.CON ---
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 pt. states 4 days ago he had cardiac catheterization donbe from left radial site by and he was told his angiogram was ok , did not get any stenting . he said he has been feeling fine up until yesterday afternoon when he developed shaking chills and his brought him to ED to be further evaluated. pt. denies any cough or sob or any chest pain, he denies any LOERA, denies any abd pain, lauren any nausea or vomiting, lauren any dysurea, denies any diarrhea. He states he is feeling already better today and denies any chills so far today. PMH: Arthritis, BPH, Depression, DM II, HTN, HLD, Kidney Stones, CKD;Chronic right gret toe wound;Falls/Unsteady gait PSH: Right knee replacement; right Nephrectomy; Cataract surgery SH: denies tobacco, denies etoh, denies drugs lives with his Review of Systems - Review of Systems Review of Systems: ROS- + fever and chills yesterday, denies any cough or sob, denies any LOERA, denies any chest pain, denies any abd. pain, denies any nausea or vomiting, denies any dysurea, denies any diarrhea Past Patient History - Past Medical History & Family History Past Medical History?: Yes - Past Social History Alcohol: None Drugs: Denies - CARDIAC Hx Hypercholesterolemia: Yes Hx Hypertension: Yes - NEUROLOGICAL Hx Neurological Disorder: Yes Other/Comment: NUMBNESS FEET - HEENT Hx Cataracts: Yes Other/Comment: RETINA(LASER TX) - RENAL Hx Chronic Kidney Disease: Yes Hx Kidney Stones: Yes - ENDOCRINE/METABOLIC Hx Endocrine Disorders: Yes Hx Diabetes Mellitus Type 2: Yes - HEMATOLOGICAL/ONCOLOGICAL Hx Blood Disorders: No - INTEGUMENTARY Hx Dermatological Problems: No Other/Comment: DIABETIC ULCER - MUSCULOSKELETAL/RHEUMATOLOGICAL Hx Arthritis: Yes - GASTROINTESTINAL Hx Gastrointestinal Disorders: No - GENITOURINARY/GYNECOLOGICAL Hx Prostate Problems: Yes Other/Comment: BPH-ENLARGE PROSTATE - PSYCHIATRIC Hx Depression: Yes - SURGICAL HISTORY Hx Surgeries: Yes Hx Cataract Extraction: Yes Hx Cardiac Catheterization: Yes (January 2018) Hx Joint Replacement: Yes Hx Orthopedic Surgery: Yes (Right TKR) Other/Comment: RIGHT TOTAL KNEE ARTHROPLASTY/RIGHT NEPHRECTOMY - ANESTHESIA Hx Anesthesia: Yes Hx Anesthesia Reactions: No Hx Malignant Hyperthermia: No Meds Allergies/Adverse Reactions: Allergies Allergy/AdvReac Type Severity Reaction Status Date / Time No Known Allergies Allergy Verified 02/02/18 19:39 - Medications Medications: Current Medications Allopurinol (Zyloprim) 300 mg PO DAILY [facility] Amlodipine Besylate (Norvasc) 10 mg PO DAILY [facility] Aspirin (Aspirin Chewable) 81 mg PO DAILY [facility] Atorvastatin Calcium (Lipitor) 10 mg PO DAILY [facility] Enoxaparin Sodium (Lovenox) 40 mg SC DAILY [facility] PRN Reason: Protocol Finasteride (Proscar) 5 mg PO DAILY [facility] Vancomycin HCl 1 gm/ Sodium (Chloride) 250 mls @ 166.667 mls/hr IVPB Q12 [facility] PRN Reason: Protocol Sodium Chloride (Sodium Chloride 0.9%) 1,000 mls @ 100 mls/hr IV .Q10H [facility] Stop: 02/04/18 01:38 Last Admin: 02/03/18 01:45 Dose: 100 mls/hr Insulin Detemir (Levemir) 50 units SC BID [facility] Insulin Human Lispro (Humalog) 0 units SC ACHS [facility] PRN Reason: Protocol Last Admin: 02/03/18 06:44 Dose: 2 u Lisinopril (Zestril) 20 mg PO BID [facility] Pregabalin (Lyrica) 150 mg PO BID [facility] Sertraline HCl (Zoloft) 50 mg PO DAILY [facility] Physical Exam - Constitutional Appears: No Acute Distress - Head Exam Head Exam: ATRAUMATIC - Eye Exam Eye Exam: EOMI - ENT Exam ENT Exam: Normal Oropharynx - Neck Exam Neck exam: Positive for: Full Rom - Respiratory Exam Respiratory Exam: Clear to Auscultation Bilateral, NORMAL BREATHING PATTERN - Cardiovascular Exam Cardiovascular Exam: RRR, +S1, +S2 - GI/Abdominal Exam GI & Abdominal Exam: Normal Bowel Sounds, Soft Additional comments: NT, ND - Extremities Exam Additional comments: right foot eith erythema and slight edema and has the chronic right great toe plantar ulcer mostly dry and healed but has small amost opening at the medial site with malodor present, no obvious discharge left foot no erythema, no ulcers right knee prosthetic joint surgical site clean/dry/intact left arm cath site with echymosis and bruising but no edema, no hematoma - Neurological Exam Neurological exam: Alert, Oriented x3 Results - Vital Signs Recent Vital Signs: Last Vital Signs Temp 97.9 F 02/03/18 08:00 Pulse 56 L 02/03/18 08:00 Resp 20 02/03/18 08:00 BP 176/82 H 02/03/18 08:00 Pulse Ox 97 02/03/18 08:00 - Labs Result Diagrams: 02/03/18 04:20 02/03/18 04:20 Labs: Laboratory Results - last 24 hr 02/02/18 02/02/18 02/02/18 19:40 20:00 21:48 WBC 13.8 H D RBC 5.31 Hgb 14.3 Hct 43.6 MCV 82.2 D MCH 27.0 MCHC 32.8 L RDW 17.0 H Plt Count 149 MPV 9.2 Neut % (Auto) 83.4 H Lymph % (Auto) 8.2 L [place] % (Auto) 7.6 Eos % (Auto) 0.4 Baso % (Auto) 0.4 Neut # (Auto) 11.6 H Lymph # (Auto) 1.1 [place] # (Auto) 1.0 H Eos # (Auto) 0.1 Baso # (Auto) 0.1 Neutrophils % (Manual) 79 H Band Neutrophils % 4 H Lymphocytes % (Manual) 6 L Reactive Lymphs % 8 H Monocytes % (Manual) 2 Eosinophils % (Manual) 1 Platelet Estimate Normal Poikilocytosis (manual Slight Anisocytosis (manual) Slight Ovalocytes Slight pO2 VBG pH VBG pCO2 VBG HCO3 VBG Total CO2 VBG O2 Sat (Calc) VBG Base Excess VBG Potassium Glucose Lactate FiO2 Sodium Potassium Chloride Carbon Dioxide Anion Gap BUN Creatinine Est GFR ( Amer) Est GFR (Non-Af Amer) POC Glucose (mg/dL) 293 H 248 H Random Glucose Calcium Total Bilirubin AST ALT Alkaline Phosphatase Troponin I Total Protein Albumin Globulin Albumin/Globulin Ratio Venous Blood Potassium Urine Color Urine Clarity Urine pH Ur Specific [place] Urine Protein Urine Glucose (UA) Urine Ketones Urine Blood Urine Nitrate Urine Bilirubin Urine Urobilinogen Ur Leukocyte Esterase Urine RBC (Auto) Urine Microscopic WBC Ur Squamous Epith Cells 02/02/18 02/02/18 02/02/18 21:48 21:48 23:18 WBC RBC Hgb Hct MCV MCH MCHC RDW Plt Count MPV Neut % (Auto) Lymph % (Auto) [place] % (Auto) Eos % (Auto) Baso % (Auto) Neut # (Auto) Lymph # (Auto) [place] # (Auto) Eos # (Auto) Baso # (Auto) Neutrophils % (Manual) Band Neutrophils % Lymphocytes % (Manual) Reactive Lymphs % Monocytes % (Manual) Eosinophils % (Manual) Platelet Estimate Poikilocytosis (manual Anisocytosis (manual) Ovalocytes pO2 41 VBG pH 7.48 H VBG pCO2 33 L VBG HCO3 25.7 VBG Total CO2 25.6 VBG O2 Sat (Calc) 88.1 H VBG Base Excess 1.6 VBG Potassium 3.5 L Glucose 111 H Lactate 1.3 FiO2 21.0 Sodium 137 135.0 Potassium 3.8 Chloride 100 102.0 Carbon Dioxide 26 Anion Gap 15 BUN 23 H Creatinine 1.2 Est GFR ( Amer) > 60 Est GFR (Non-Af Amer) 59 POC Glucose (mg/dL) Random Glucose 158 H Calcium 9.7 Total Bilirubin 1.1 AST 16 L ALT 21 Alkaline Phosphatase 85 Troponin I 0.0450 Total Protein 7.5 Albumin 4.3 Globulin 3.2 Albumin/Globulin Ratio 1.4 Venous Blood Potassium 3.5 L Urine Color Yellow Urine Clarity Slighty-cloudy Urine pH 5.0 Ur Specific [place] 1.015 Urine Protein >=500 Urine Glucose (UA) >=500 Urine Ketones Negative Urine Blood Small Urine Nitrate Negative Urine Bilirubin Negative Urine Urobilinogen 0.2-1.0 Ur Leukocyte Esterase Neg Urine RBC (Auto) 4 H Urine Microscopic WBC < 1 Ur Squamous Epith Cells < 1 02/03/18 02/03/18 02/03/18 00:57 04:20 04:20 WBC 10.6 RBC 4.62 Hgb 12.7 Hct 38.6 MCV 83.5 MCH 27.5 MCHC 33.0 RDW 16.8 H Plt Count 128 L D MPV 9.2 Neut % (Auto) 77.4 H Lymph % (Auto) 12.4 L [place] % (Auto) 9.4 Eos % (Auto) 0.4 Baso % (Auto) 0.4 Neut # (Auto) 8.2 H Lymph # (Auto) 1.3 [place] # (Auto) 1.0 H Eos # (Auto) 0.0 Baso # (Auto) 0.0 Neutrophils % (Manual) Band Neutrophils % Lymphocytes % (Manual) Reactive Lymphs % Monocytes % (Manual) Eosinophils % (Manual) Platelet Estimate Poikilocytosis (manual Anisocytosis (manual) Ovalocytes pO2 VBG pH VBG pCO2 VBG HCO3 VBG Total CO2 VBG O2 Sat (Calc) VBG Base Excess VBG Potassium Glucose Lactate FiO2 Sodium 139 Potassium 3.4 L Chloride 106 Carbon Dioxide 25 Anion Gap 11 BUN 20 Creatinine 1.1 Est GFR ( Amer) > 60 Est GFR (Non-Af Amer) > 60 POC Glucose (mg/dL) 119 H Random Glucose 165 H Calcium 8.6 Total Bilirubin AST ALT Alkaline Phosphatase Troponin I Total Protein Albumin Globulin Albumin/Globulin Ratio Venous Blood Potassium Urine Color Urine Clarity Urine pH Ur Specific [place] Urine Protein Urine Glucose (UA) Urine Ketones Urine Blood Urine Nitrate Urine Bilirubin Urine Urobilinogen Ur Leukocyte Esterase Urine RBC (Auto) Urine Microscopic WBC Ur Squamous Epith Cells 02/03/18 05:06 WBC RBC Hgb Hct MCV MCH MCHC RDW Plt Count MPV Neut % (Auto) Lymph % (Auto) [place] % (Auto) Eos % (Auto) Baso % (Auto) Neut # (Auto) Lymph # (Auto) [place] # (Auto) Eos # (Auto) Baso # (Auto) Neutrophils % (Manual) Band Neutrophils % Lymphocytes % (Manual) Reactive Lymphs % Monocytes % (Manual) Eosinophils % (Manual) Platelet Estimate Poikilocytosis (manual Anisocytosis (manual) Ovalocytes pO2 VBG pH VBG pCO2 VBG HCO3 VBG Total CO2 VBG O2 Sat (Calc) VBG Base Excess VBG Potassium Glucose Lactate FiO2 Sodium Potassium Chloride Carbon Dioxide Anion Gap BUN Creatinine Est GFR ( Amer) Est GFR (Non-Af Amer) POC Glucose (mg/dL) 152 H Random Glucose Calcium Total Bilirubin AST ALT Alkaline Phosphatase Troponin I Total Protein Albumin Globulin Albumin/Globulin Ratio Venous Blood Potassium Urine Color Urine Clarity Urine pH Ur Specific [place] Urine Protein Urine Glucose (UA) Urine Ketones Urine Blood Urine Nitrate Urine Bilirubin Urine Urobilinogen Ur Leukocyte Esterase Urine RBC (Auto) Urine Microscopic WBC Ur Squamous Epith Cells Laboratory Results - last 72 hr 02/02/18 02/02/18 02/02/18 19:40 20:00 21:48 WBC 13.8 H D RBC 5.31 Hgb 14.3 Hct 43.6 MCV 82.2 D MCH 27.0 MCHC 32.8 L RDW 17.0 H Plt Count 149 MPV 9.2 Neut % (Auto) 83.4 H Lymph % (Auto) 8.2 L [place] % (Auto) 7.6 Eos % (Auto) 0.4 Baso % (Auto) 0.4 Neut # (Auto) 11.6 H Lymph # (Auto) 1.1 [place] # (Auto) 1.0 H Eos # (Auto) 0.1 Baso # (Auto) 0.1 Neutrophils % (Manual) 79 H Band Neutrophils % 4 H Lymphocytes % (Manual) 6 L Reactive Lymphs % 8 H Monocytes % (Manual) 2 Eosinophils % (Manual) 1 Platelet Estimate Normal Poikilocytosis (manual Slight Anisocytosis (manual) Slight Ovalocytes Slight pO2 VBG pH VBG pCO2 VBG HCO3 VBG Total CO2 VBG O2 Sat (Calc) VBG Base Excess VBG Potassium Glucose Lactate FiO2 Sodium Potassium Chloride Carbon Dioxide Anion Gap BUN Creatinine Est GFR ( Amer) Est GFR (Non-Af Amer) POC Glucose (mg/dL) 293 H 248 H Random Glucose Calcium Total Bilirubin AST ALT Alkaline Phosphatase Troponin I Total Protein Albumin Globulin Albumin/Globulin Ratio Venous Blood Potassium Urine Color Urine Clarity Urine pH Ur Specific [place] Urine Protein Urine Glucose (UA) Urine Ketones Urine Blood Urine Nitrate Urine Bilirubin Urine Urobilinogen Ur Leukocyte Esterase Urine RBC (Auto) Urine Microscopic WBC Ur Squamous Epith Cells 02/02/18 02/02/18 02/02/18 21:48 21:48 23:18 WBC RBC Hgb Hct MCV MCH MCHC RDW Plt Count MPV Neut % (Auto) Lymph % (Auto) [place] % (Auto) Eos % (Auto) Baso % (Auto) Neut # (Auto) Lymph # (Auto) [place] # (Auto) Eos # (Auto) Baso # (Auto) Neutrophils % (Manual) Band Neutrophils % Lymphocytes % (Manual) Reactive Lymphs % Monocytes % (Manual) Eosinophils % (Manual) Platelet Estimate Poikilocytosis (manual Anisocytosis (manual) Ovalocytes pO2 41 VBG pH 7.48 H VBG pCO2 33 L VBG HCO3 25.7 VBG Total CO2 25.6 VBG O2 Sat (Calc) 88.1 H VBG Base Excess 1.6 VBG Potassium 3.5 L Glucose 111 H Lactate 1.3 FiO2 21.0 Sodium 137 135.0 Potassium 3.8 Chloride 100 102.0 Carbon Dioxide 26 Anion Gap 15 BUN 23 H Creatinine 1.2 Est GFR ( Amer) > 60 Est GFR (Non-Af Amer) 59 POC Glucose (mg/dL) Random Glucose 158 H Calcium 9.7 Total Bilirubin 1.1 AST 16 L ALT 21 Alkaline Phosphatase 85 Troponin I 0.0450 Total Protein 7.5 Albumin 4.3 Globulin 3.2 Albumin/Globulin Ratio 1.4 Venous Blood Potassium 3.5 L Urine Color Yellow Urine Clarity Slighty-cloudy Urine pH 5.0 Ur Specific [place] 1.015 Urine Protein >=500 Urine Glucose (UA) >=500 Urine Ketones Negative Urine Blood Small Urine Nitrate Negative Urine Bilirubin Negative Urine Urobilinogen 0.2-1.0 Ur Leukocyte Esterase Neg Urine RBC (Auto) 4 H Urine Microscopic WBC < 1 Ur Squamous Epith Cells < 1 02/03/18 02/03/18 02/03/18 00:57 04:20 04:20 WBC 10.6 RBC 4.62 Hgb 12.7 Hct 38.6 MCV 83.5 MCH 27.5 MCHC 33.0 RDW 16.8 H Plt Count 128 L D MPV 9.2 Neut % (Auto) 77.4 H Lymph % (Auto) 12.4 L [place] % (Auto) 9.4 Eos % (Auto) 0.4 Baso % (Auto) 0.4 Neut # (Auto) 8.2 H Lymph # (Auto) 1.3 [place] # (Auto) 1.0 H Eos # (Auto) 0.0 Baso # (Auto) 0.0 Neutrophils % (Manual) Band Neutrophils % Lymphocytes % (Manual) Reactive Lymphs % Monocytes % (Manual) Eosinophils % (Manual) Platelet Estimate Poikilocytosis (manual Anisocytosis (manual) Ovalocytes pO2 VBG pH VBG pCO2 VBG HCO3 VBG Total CO2 VBG O2 Sat (Calc) VBG Base Excess VBG Potassium Glucose Lactate FiO2 Sodium 139 Potassium 3.4 L Chloride 106 Carbon Dioxide 25 Anion Gap 11 BUN 20 Creatinine 1.1 Est GFR ( Amer) > 60 Est GFR (Non-Af Amer) > 60 POC Glucose (mg/dL) 119 H Random Glucose 165 H Calcium 8.6 Total Bilirubin AST ALT Alkaline Phosphatase Troponin I Total Protein Albumin Globulin Albumin/Globulin Ratio Venous Blood Potassium Urine Color Urine Clarity Urine pH Ur Specific [place] Urine Protein Urine Glucose (UA) Urine Ketones Urine Blood Urine Nitrate Urine Bilirubin Urine Urobilinogen Ur Leukocyte Esterase Urine RBC (Auto) Urine Microscopic WBC Ur Squamous Epith Cells 02/03/18 05:06 WBC RBC Hgb Hct MCV MCH MCHC RDW Plt Count MPV Neut % (Auto) Lymph % (Auto) [place] % (Auto) Eos % (Auto) Baso % (Auto) Neut # (Auto) Lymph # (Auto) [place] # (Auto) Eos # (Auto) Baso # (Auto) Neutrophils % (Manual) Band Neutrophils % Lymphocytes % (Manual) Reactive Lymphs % Monocytes % (Manual) Eosinophils % (Manual) Platelet Estimate Poikilocytosis (manual Anisocytosis (manual) Ovalocytes pO2 VBG pH VBG pCO2 VBG HCO3 VBG Total CO2 VBG O2 Sat (Calc) VBG Base Excess VBG Potassium Glucose Lactate FiO2 Sodium Potassium Chloride Carbon Dioxide Anion Gap BUN Creatinine Est GFR ( Amer) Est GFR (Non-Af Amer) POC Glucose (mg/dL) 152 H Random Glucose Calcium Total Bilirubin AST ALT Alkaline Phosphatase Troponin I Total Protein Albumin Globulin Albumin/Globulin Ratio Venous Blood Potassium Urine Color Urine Clarity Urine pH Ur Specific [place] Urine Protein Urine Glucose (UA) Urine Ketones Urine Blood Urine Nitrate Urine Bilirubin Urine Urobilinogen Ur Leukocyte Esterase Urine RBC (Auto) Urine Microscopic WBC Ur Squamous Epith Cells Assessment & Plan (1) Fever in adult Status: Acute (2) Foot ulcer Status: Acute (3) Leukocytosis Status: Acute (4) History of infection of total joint prosthesis of knee Status: Acute (5) Diabetes Status: Acute - Assessment and Plan (Free Text) Assessment: A/P- 72 year old male with multiple medical conditions including DM II, HTN, BPH, h/ o prosthetic knee joint infection s/p removal of hardware and replacment 4 years ago, nonhealing chronic right great toe ulcer f/u refugio with machine assembler for puller 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 so far the etiology of the fever is unclear, however in light of the malodor present at the right foot ulcer site that is possibly the etiology of the infection. this morning patient is feeling better. UA- neg cxr- no official report but looks negative plan- check blood cx x 2. podiatry consultation and evaluation of the right gret toe ulcer and malodor. s/p 1 dose vanco last night. advise to continue with IV vanco and add zosyn since he is diabetic pending further results. check LE US r/o DVT. check TTE r/o any vegetations. All above d/w patient at length and he verbalizes full understanding of all above.
[2018-02-03] MEDS: Insulin Detemir 100 Units/ml Inj SC SCH ×2 (09:29→17:07)
[2018-02-03] MEDS: Enoxaparin 40 mg Syringe SC SCH (09:31)
--- NOTE | 2018-02-03 10:58 | RAD ---
HISTORY: fever COMPARISON: 04/08/2017 FINDINGS: LUNGS: No active pulmonary disease. PLEURA: No significant pleural effusion identified, no pneumothorax apparent. CARDIOVASCULAR: Normal. OSSEOUS STRUCTURES: No significant abnormalities. VISUALIZED UPPER ABDOMEN: Normal. OTHER FINDINGS: None. IMPRESSION: No focal airspace opacity. Please note that chest radiographs have low sensitivity for small pulmonary nodules. If indicated, chest CT should be obtained.
[2018-02-03] MEDS: Piperacillin/Tazobact 3.375 GM in Sodium Chloride 0.9% 100 ML IVPB SCH ×2 (11:15→17:02)
--- NOTE | 2018-02-03 11:16 | US ---
PROCEDURE: Bilateral lower extremity venous duplex Doppler. HISTORY: bilateral le sweling COMPARISON: None available. TECHNIQUE: Bilateral common femoral, superficial femoral, popliteal and posterior tibial veins were evaluated. Flow was assessed with color Doppler, compressibility, assessment of phasic flow and augmentation response. FINDINGS: COMMON FEMORAL VEIN: Right CFV: Unremarkable. Left CFV: Unremarkable. SUPERFICIAL FEMORAL VEIN: Right SFV: Unremarkable. Left SFV: Unremarkable. POPLITEAL VEIN: Right Popliteal: Unremarkable. Left Popliteal: Unremarkable. POSTERIOR TIBIAL VEIN: Right PTV: Unremarkable. Left PTV: Unremarkable. OTHER FINDINGS: Mild subcutaneous edema bilaterally. IMPRESSION: No evidence of deep venous thrombosis.
--- NOTE | 2018-02-03 14:54 | CP.PCM.PN ---
Subjective - Date & Time of Evaluation Date of Evaluation: 02/03/18 Time of Evaluation: 14:50 - Subjective Subjective: pt states he is feeling well, improved from yesterday no complaints at this time hd stable no acute distress Objective - Vital Signs/Intake and Output Vital Signs (last 24 hours): Temp Pulse Resp BP Pulse Ox 97.6 F 50 L 18 151/71 H 98 02/03/18 12:00 02/03/18 12:00 02/03/18 12:00 02/03/18 12:00 02/03/18 12:00 GEN: WDWN, ALERT, COOPERATIVE HEENT: NCAT, PERRL, EOMI HEART: +S1+S2, RRR NO MRG LUNG: CTAB, NO WRR ABD: SOFT BSX4 NT ND NO HSM NO MASS EXT: WARM, WELL PERFUSED NEURO: AA0X3, STRENGTH AND SENSATION EQUAL AND BILATERAL SKIN: WARM DRY PSYCH: NORMAL MOOD NORMAL AFFECT - Medications Medications: Current Medications Allopurinol (Zyloprim) 300 mg PO DAILY [facility] Last Admin: 02/03/18 09:31 Dose: 300 mg Amlodipine Besylate (Norvasc) 10 mg PO DAILY [facility] Last Admin: 02/03/18 09:27 Dose: 10 mg Aspirin (Aspirin Chewable) 81 mg PO DAILY [facility] Last Admin: 02/03/18 09:30 Dose: 81 mg Atorvastatin Calcium (Lipitor) 10 mg PO DAILY [facility] Last Admin: 02/03/18 09:30 Dose: 10 mg Enoxaparin Sodium (Lovenox) 40 mg SC DAILY [facility] PRN Reason: Protocol Last Admin: 02/03/18 09:31 Dose: 40 mg Finasteride (Proscar) 5 mg PO DAILY [facility] Last Admin: 02/03/18 09:31 Dose: 5 mg Vancomycin HCl 1 gm/ Sodium (Chloride) 250 mls @ 166.667 mls/hr IVPB Q12 [facility] PRN Reason: Protocol Last Admin: 02/03/18 09:27 Dose: 166.667 mls/hr Sodium Chloride (Sodium Chloride 0.9%) 1,000 mls @ 100 mls/hr IV .Q10H [facility] Stop: 02/04/18 01:38 Last Admin: 02/03/18 01:45 Dose: 100 mls/hr Piperacillin Sod/Tazobactam (Sod 3.375 gm/ Sodium Chloride) 100 mls @ 100 mls/ hr IVPB Q8 [facility] PRN Reason: Protocol Insulin Detemir (Levemir) 50 units SC BID [facility] Last Admin: 02/03/18 09:29 Dose: 50 units Insulin Human Lispro (Humalog) 0 units SC ACHS [facility] PRN Reason: Protocol Last Admin: 02/03/18 06:44 Dose: 2 u Lisinopril (Zestril) 20 mg PO BID [facility] Last Admin: 02/03/18 09:31 Dose: 20 mg Pregabalin (Lyrica) 150 mg PO BID [facility] Last Admin: 02/03/18 09:33 Dose: 150 mg Sertraline HCl (Zoloft) 50 mg PO DAILY [facility] Last Admin: 02/03/18 09:31 Dose: 50 mg - Labs Labs: 02/03/18 04:20 02/03/18 04:20 Assessment and Plan - Assessment and Plan (Free Text) Plan: 72 years old male with hx of DM, chronic non healing right great toe ulcer, CKD with Cardio Catheterization done on 01/29/18 through the left radial artery approach. He comes with fever that began today, along with chills and mild dizziness. No coughing, nausea, vomits. No throat ache, SOB, chest pain, abdominal pain, Diarrhea, Dysuria. Acute on Chronic Cellulitis, concern for Osteomyelitis? Fever etiology unclear in patient who recently had a cardiac cath but also has a chronic non healing ulcer at the right great toe - most likely secondary to acute on chronic infection great toe: cellulitis concern for osteomyelitis? - Consult Dr Ball ID - Consult Dr Vaughn cardiology - Podiatry Consult pending - Blood culture PENDING - Urine culture PENDING - ECHO pending - Vancomycin and Zosyn (added today) - Obtaining XR of foot to eval for osteo? Dehydration - IV fluids - Follow renal labs DM II with hyperglycemia - Levemir - Lispro sliding scale according to accucheck - HbA1c DVT prophylaxis with Lovenox Code Status: Full
--- NOTE | 2018-02-03 19:57 | CP.PCM.PCO ---
Physician Communication Note - Physician Communication Note Physician Communication Note: Patient's HR persistent in the 40s with [id number]. Hold transfer to [facility]
--- NOTE | 2018-02-03 21:45 | CP.PCM.CON ---
History of Present Illness - History of Present Illness History of Present Illness: Podiatry consult note for Dr. Alvarez 72 y/o male patient with PMHx of Arthritis, BPH, Depression, DMII, HTN, HLD, and CKD was consulted upon for a chronic ulceration to submetatarsal 1 of the right foot. Patient was admitted to the hospital due to a fever post catheterization. Patient was resting comfortably when seen and evaluated at bedside. Patient states the ulcer has been present for more than a year. Patient saw Dr. Alvarez every two weeks for wound care. Patient reports he had not seen Dr. Alvarez in about 2 months as he thought the wound was healing. Patient reports ambulating in a surgical shoe. Patient denies any changes to the wound, and states it "looks the same". Patient's wound was not dressed, and patient denies dressing the wound daily. Patient denies F/N/V/chills/SOB at this time. PSHx: R knee replacement, Right Nephrectomy, Cataract Surgery ALL: NKDA Review of Systems - Review of Systems All systems: reviewed and no additional remarkable complaints except Review of Systems: As per HPI Past Patient History - Past Medical History & Family History Past Medical History?: Yes - Past Social History Alcohol: None Drugs: Denies - CARDIAC Hx Hypercholesterolemia: Yes Hx Hypertension: Yes - NEUROLOGICAL Hx Neurological Disorder: Yes Other/Comment: NUMBNESS FEET - HEENT Hx Cataracts: Yes Other/Comment: RETINA(LASER TX) - RENAL Hx Chronic Kidney Disease: Yes Hx Kidney Stones: Yes - ENDOCRINE/METABOLIC Hx Endocrine Disorders: Yes Hx Diabetes Mellitus Type 2: Yes - HEMATOLOGICAL/ONCOLOGICAL Hx Blood Disorders: No - INTEGUMENTARY Hx Dermatological Problems: No Other/Comment: DIABETIC ULCER - MUSCULOSKELETAL/RHEUMATOLOGICAL Hx Arthritis: Yes - GASTROINTESTINAL Hx Gastrointestinal Disorders: No - GENITOURINARY/GYNECOLOGICAL Hx Prostate Problems: Yes Other/Comment: BPH-ENLARGE PROSTATE - PSYCHIATRIC Hx Depression: Yes - SURGICAL HISTORY Hx Surgeries: Yes Hx Cataract Extraction: Yes Hx Cardiac Catheterization: Yes (January 2018) Hx Joint Replacement: Yes Hx Orthopedic Surgery: Yes (Right TKR) Other/Comment: RIGHT TOTAL KNEE ARTHROPLASTY/RIGHT NEPHRECTOMY - ANESTHESIA Hx Anesthesia: Yes Hx Anesthesia Reactions: No Hx Malignant Hyperthermia: No Meds Allergies/Adverse Reactions: Allergies Allergy/AdvReac Type Severity Reaction Status Date / Time No Known Allergies Allergy Verified 02/02/18 19:39 - Medications Medications: Current Medications Allopurinol (Zyloprim) 300 mg PO DAILY [facility] Last Admin: 02/03/18 09:31 Dose: 300 mg Amlodipine Besylate (Norvasc) 10 mg PO DAILY [facility] Last Admin: 02/03/18 09:27 Dose: 10 mg Aspirin (Aspirin Chewable) 81 mg PO DAILY [facility] Last Admin: 02/03/18 09:30 Dose: 81 mg Atorvastatin Calcium (Lipitor) 10 mg PO DAILY [facility] Last Admin: 02/03/18 09:30 Dose: 10 mg Enoxaparin Sodium (Lovenox) 40 mg SC DAILY [facility] PRN Reason: Protocol Last Admin: 02/03/18 09:31 Dose: 40 mg Finasteride (Proscar) 5 mg PO DAILY [facility] Last Admin: 02/03/18 09:31 Dose: 5 mg Hydralazine HCl (Apresoline) 10 mg PO TID [facility] Last Admin: 02/03/18 17:03 Dose: 10 mg Vancomycin HCl 1 gm/ Sodium (Chloride) 250 mls @ 166.667 mls/hr IVPB Q12 [facility] PRN Reason: Protocol Last Admin: 02/03/18 09:27 Dose: 166.667 mls/hr Sodium Chloride (Sodium Chloride 0.9%) 1,000 mls @ 100 mls/hr IV .Q10H [facility] Stop: 02/04/18 01:38 Last Admin: 02/03/18 11:45 Dose: 100 mls/hr Piperacillin Sod/Tazobactam (Sod 3.375 gm/ Sodium Chloride) 100 mls @ 100 mls/ hr IVPB Q8 [facility] PRN Reason: Protocol Last Admin: 02/03/18 17:02 Dose: 100 mls/hr Insulin Detemir (Levemir) 50 units SC BID [facility] Last Admin: 02/03/18 17:07 Dose: 50 units Insulin Human Lispro (Humalog) 0 units SC ACHS [facility] PRN Reason: Protocol Last Admin: 02/03/18 17:07 Dose: Not Given Lisinopril (Zestril) 20 mg PO BID [facility] Last Admin: 02/03/18 17:10 Dose: 20 mg Pregabalin (Lyrica) 150 mg PO BID [facility] Last Admin: 02/03/18 17:09 Dose: 150 mg Sertraline HCl (Zoloft) 50 mg PO DAILY [facility] Last Admin: 02/03/18 09:31 Dose: 50 mg Physical Exam - Constitutional Appears: Well, Non-toxic, No Acute Distress - Head Exam Head Exam: ATRAUMATIC, NORMOCEPHALIC - Extremities Exam Additional comments: Bilateral Lower Extremity Exam VASC: DP 2/4 bilaterally, PT 1/4 bilaterally, CFT less than 3 seconds X 10, TG warm to cool on the left and warm to warm on the right, non-pitting edema noted to the dorsal aspect of the right foot, especially the right hallux NEURO: Protective sensation significantly diminished DERM: Ulceration present submet 1 R foot, measuring 3.0 cm X 3.0 cm with a necrotic roof, minimal opening noted measuring 0.1 cm X 0.1 cm, positive malodor and minimal sero-sanguinous drainage, positive undermining, positive lorena-wound erythema extending to the dorsal aspect of the foot, negative, tunneling or tracking, negative probe to bone Post debridement of the necrotic roof with sterile #15 blade, removed devitalized tissue, down to 50% granular and 50% fibrotic tissue with maceration , no additional drainage noted MSK: patient range of motion within normal limits - Neurological Exam Neurological exam: Alert, Oriented x3 - Psychiatric Exam Psychiatric exam: Normal Affect, Normal Mood Results - Vital Signs Recent Vital Signs: Last Vital Signs Temp 97.4 F L 02/03/18 19:51 Pulse 53 L 02/03/18 19:51 Resp 18 02/03/18 19:51 BP 155/78 H 02/03/18 19:51 Pulse Ox 97 02/03/18 19:51 - Labs Result Diagrams: 02/03/18 04:20 02/03/18 04:20 Labs: Laboratory Results - last 24 hr 02/02/18 02/02/18 02/02/18 21:48 21:48 21:48 WBC 13.8 H D RBC 5.31 Hgb 14.3 Hct 43.6 MCV 82.2 D MCH 27.0 MCHC 32.8 L RDW 17.0 H Plt Count 149 MPV 9.2 Neut % (Auto) 83.4 H Lymph % (Auto) 8.2 L [place] % (Auto) 7.6 Eos % (Auto) 0.4 Baso % (Auto) 0.4 Neut # (Auto) 11.6 H Lymph # (Auto) 1.1 [place] # (Auto) 1.0 H Eos # (Auto) 0.1 Baso # (Auto) 0.1 Neutrophils % (Manual) 79 H Band Neutrophils % 4 H Lymphocytes % (Manual) 6 L Reactive Lymphs % 8 H Monocytes % (Manual) 2 Eosinophils % (Manual) 1 Platelet Estimate Normal Poikilocytosis (manual Slight Anisocytosis (manual) Slight Ovalocytes Slight ESR pO2 VBG pH VBG pCO2 VBG HCO3 VBG Total CO2 VBG O2 Sat (Calc) VBG Base Excess VBG Potassium Glucose Lactate FiO2 Sodium 137 Potassium 3.8 Chloride 100 Carbon Dioxide 26 Anion Gap 15 BUN 23 H Creatinine 1.2 Est GFR ( Amer) > 60 Est GFR (Non-Af Amer) 59 POC Glucose (mg/dL) Random Glucose 158 H Calcium 9.7 Total Bilirubin 1.1 AST 16 L ALT 21 Alkaline Phosphatase 85 Troponin I 0.0450 Total Protein 7.5 Albumin 4.3 Globulin 3.2 Albumin/Globulin Ratio 1.4 Venous Blood Potassium Urine Color Yellow Urine Clarity Slighty-cloudy Urine pH 5.0 Ur Specific [place] 1.015 Urine Protein >=500 Urine Glucose (UA) >=500 Urine Ketones Negative Urine Blood Small Urine Nitrate Negative Urine Bilirubin Negative Urine Urobilinogen 0.2-1.0 Ur Leukocyte Esterase Neg Urine RBC (Auto) 4 H Urine Microscopic WBC < 1 Ur Squamous Epith Cells < 1 02/02/18 02/03/18 02/03/18 23:18 00:57 04:20 WBC 10.6 RBC 4.62 Hgb 12.7 Hct 38.6 MCV 83.5 MCH 27.5 MCHC 33.0 RDW 16.8 H Plt Count 128 L D MPV 9.2 Neut % (Auto) 77.4 H Lymph % (Auto) 12.4 L [place] % (Auto) 9.4 Eos % (Auto) 0.4 Baso % (Auto) 0.4 Neut # (Auto) 8.2 H Lymph # (Auto) 1.3 [place] # (Auto) 1.0 H Eos # (Auto) 0.0 Baso # (Auto) 0.0 Neutrophils % (Manual) Band Neutrophils % Lymphocytes % (Manual) Reactive Lymphs % Monocytes % (Manual) Eosinophils % (Manual) Platelet Estimate Poikilocytosis (manual Anisocytosis (manual) Ovalocytes ESR pO2 41 VBG pH 7.48 H VBG pCO2 33 L VBG HCO3 25.7 VBG Total CO2 25.6 VBG O2 Sat (Calc) 88.1 H VBG Base Excess 1.6 VBG Potassium 3.5 L Glucose 111 H Lactate 1.3 FiO2 21.0 Sodium 135.0 Potassium Chloride 102.0 Carbon Dioxide Anion Gap BUN Creatinine Est GFR ( Amer) Est GFR (Non-Af Amer) POC Glucose (mg/dL) 119 H Random Glucose Calcium Total Bilirubin AST ALT Alkaline Phosphatase Troponin I Total Protein Albumin Globulin Albumin/Globulin Ratio Venous Blood Potassium 3.5 L Urine Color Urine Clarity Urine pH Ur Specific [place] Urine Protein Urine Glucose (UA) Urine Ketones Urine Blood Urine Nitrate Urine Bilirubin Urine Urobilinogen Ur Leukocyte Esterase Urine RBC (Auto) Urine Microscopic WBC Ur Squamous Epith Cells 02/03/18 02/03/18 02/03/18 04:20 05:06 11:37 WBC RBC Hgb Hct MCV MCH MCHC RDW Plt Count MPV Neut % (Auto) Lymph % (Auto) [place] % (Auto) Eos % (Auto) Baso % (Auto) Neut # (Auto) Lymph # (Auto) [place] # (Auto) Eos # (Auto) Baso # (Auto) Neutrophils % (Manual) Band Neutrophils % Lymphocytes % (Manual) Reactive Lymphs % Monocytes % (Manual) Eosinophils % (Manual) Platelet Estimate Poikilocytosis (manual Anisocytosis (manual) Ovalocytes ESR 9 pO2 VBG pH VBG pCO2 VBG HCO3 VBG Total CO2 VBG O2 Sat (Calc) VBG Base Excess VBG Potassium Glucose Lactate FiO2 Sodium 139 Potassium 3.4 L Chloride 106 Carbon Dioxide 25 Anion Gap 11 BUN 20 Creatinine 1.1 Est GFR ( Amer) > 60 Est GFR (Non-Af Amer) > 60 POC Glucose (mg/dL) 152 H Random Glucose 165 H Calcium 8.6 Total Bilirubin AST ALT Alkaline Phosphatase Troponin I Total Protein Albumin Globulin Albumin/Globulin Ratio Venous Blood Potassium Urine Color Urine Clarity Urine pH Ur Specific [place] Urine Protein Urine Glucose (UA) Urine Ketones Urine Blood Urine Nitrate Urine Bilirubin Urine Urobilinogen Ur Leukocyte Esterase Urine RBC (Auto) Urine Microscopic WBC Ur Squamous Epith Cells 02/03/18 16:37 WBC RBC Hgb Hct MCV MCH MCHC RDW Plt Count MPV Neut % (Auto) Lymph % (Auto) [place] % (Auto) Eos % (Auto) Baso % (Auto) Neut # (Auto) Lymph # (Auto) [place] # (Auto) Eos # (Auto) Baso # (Auto) Neutrophils % (Manual) Band Neutrophils % Lymphocytes % (Manual) Reactive Lymphs % Monocytes % (Manual) Eosinophils % (Manual) Platelet Estimate Poikilocytosis (manual Anisocytosis (manual) Ovalocytes ESR pO2 VBG pH VBG pCO2 VBG HCO3 VBG Total CO2 VBG O2 Sat (Calc) VBG Base Excess VBG Potassium Glucose Lactate FiO2 Sodium Potassium Chloride Carbon Dioxide Anion Gap BUN Creatinine Est GFR ( Amer) Est GFR (Non-Af Amer) POC Glucose (mg/dL) 137 H Random Glucose Calcium Total Bilirubin AST ALT Alkaline Phosphatase Troponin I Total Protein Albumin Globulin Albumin/Globulin Ratio Venous Blood Potassium Urine Color Urine Clarity Urine pH Ur Specific [place] Urine Protein Urine Glucose (UA) Urine Ketones Urine Blood Urine Nitrate Urine Bilirubin Urine Urobilinogen Ur Leukocyte Esterase Urine RBC (Auto) Urine Microscopic WBC Ur Squamous Epith Cells Assessment & Plan - Assessment and Plan (Free Text) Assessment: 72 y/o male patient with PMHx of Arthritis, BPH, Depression, DMII, HTN, HLD, and CKD was consulted upon for a chronic ulceration to submetatarsal 1 of the right foot. Plan: Patient seen and evaluated Plan discussed with attending, Dr. Alvarez Charts, labs and vitals reviewed Extremity US: no DVT Foot X-rays- Ordered Wound debrided to obtain culture: debridement of the necrotic roof with sterile #15 blade, removed devitalized tissue, down to 50% granular and 50% fibrotic tissue with maceration, no additional drainage noted Wound dressed with betadine and DSD Wound Cx- Ordered HgA1c- Ordered Continue IV Antibiotics as per ID recommendation Podiatry will continue to follow the patient while in-house Thank you for the consult - Date & Time Date: 02/04/18 Time: 06:13
[2018-02-04] MEDS: Piperacillin/Tazobact 3.375 GM in Sodium Chloride 0.9% 100 ML IVPB SCH ×3 (01:14→17:09)
[2018-02-04 06:07] LABS: BLOOD UREA NITROGEN 15 mg/dl (9-20); CALCIUM 8.7 mg/dL (8.4-10.2); GFR AFRICAN-AMERICAN > 60; GFR NON-AFRICAN AMERICAN > 60
[2018-02-04 06:36] LABS: HEMOGLOBIN 14.2 g/dL (12.0-18.0); MEAN CELL VOLUME 82.9 fl (80.0-94.0); MEAN CORPUSCULAR HEMOGLOBIN 27.8 pg (27.0-31.0); MEAN CORPUSCULAR HGB CONC 33.5 g/dL (33.0-37.0); RBC 5.12 Mil/uL (4.40-5.90); RED CELL DISTRIBUTION WIDTH 16.8 % (11.5-14.5); WHITE BLOOD COUNT 7.8 K/uL (4.8-10.8)
[2018-02-04] MEDS: Insulin Lispro (humaLOG) 100 Units/ml Inj SC SCH ×4 (08:07→23:00)
--- NOTE | 2018-02-04 08:38 | CARD ---
APPROVED REPORT EKG Measurement Heart [id number] <Conclusion> Wide QRS rhythm Right bundle branch block Abnormal ECG
--- NOTE | 2018-02-04 08:58 | CP.PCM.PN ---
Subjective - Date & Time of Evaluation Date of Evaluation: 02/04/18 Time of Evaluation: 08:54 - Subjective Subjective: Podiatry progress note for Dr. Alvarez, 72 y/o male seen and evaluated at bedside. Patient was resting comfortably and in no acute distress. Patient's dressing was clean, dry and intact. Patient denied any pain at this time. Patient denies any new pedal complaints. Patient denies F/V/N/SOB/chills Objective - Vital Signs/Intake and Output Vital Signs (last 24 hours): Temp Pulse Resp BP Pulse Ox 98.1 F 62 18 168/77 H 95 02/04/18 08:00 02/04/18 08:00 02/04/18 08:00 02/04/18 08:00 02/04/18 08:00 - Medications Medications: Current Medications Allopurinol (Zyloprim) 300 mg PO DAILY [facility] Last Admin: 02/03/18 09:31 Dose: 300 mg Amlodipine Besylate (Norvasc) 10 mg PO DAILY [facility] Last Admin: 02/03/18 09:27 Dose: 10 mg Aspirin (Aspirin Chewable) 81 mg PO DAILY [facility] Last Admin: 02/03/18 09:30 Dose: 81 mg Atorvastatin Calcium (Lipitor) 10 mg PO DAILY [facility] Last Admin: 02/03/18 09:30 Dose: 10 mg Enoxaparin Sodium (Lovenox) 40 mg SC DAILY [facility] PRN Reason: Protocol Last Admin: 02/03/18 09:31 Dose: 40 mg Finasteride (Proscar) 5 mg PO DAILY [facility] Last Admin: 02/03/18 09:31 Dose: 5 mg Hydralazine HCl (Apresoline) 10 mg PO TID [facility] Last Admin: 02/03/18 17:03 Dose: 10 mg Vancomycin HCl 1 gm/ Sodium (Chloride) 250 mls @ 166.667 mls/hr IVPB Q12 [facility] PRN Reason: Protocol Last Admin: 02/03/18 22:05 Dose: 166.667 mls/hr Piperacillin Sod/Tazobactam (Sod 3.375 gm/ Sodium Chloride) 100 mls @ 100 mls/ hr IVPB Q8 [facility] PRN Reason: Protocol Last Admin: 02/04/18 01:14 Dose: 100 mls/hr Insulin Detemir (Levemir) 50 units SC BID [facility] Last Admin: 02/03/18 17:07 Dose: 50 units Insulin Human Lispro (Humalog) 0 units SC ACHS [facility] PRN Reason: Protocol Last Admin: 02/04/18 08:07 Dose: Not Given Lisinopril (Zestril) 20 mg PO BID [facility] Last Admin: 02/03/18 17:10 Dose: 20 mg Pregabalin (Lyrica) 150 mg PO BID [facility] Last Admin: 02/03/18 17:09 Dose: 150 mg Sertraline HCl (Zoloft) 50 mg PO DAILY [facility] Last Admin: 02/03/18 09:31 Dose: 50 mg - Labs Labs: 02/04/18 05:00 02/04/18 05:00 - Constitutional Appears: Well, Non-toxic, No Acute Distress - Head Exam Head Exam: ATRAUMATIC, NORMOCEPHALIC - Extremities Exam Additional comments: Bilateral Lower Extremity Exam VASC: DP 2/4 bilaterally, PT 1/4 bilaterally, CFT less than 3 seconds X 10, TG warm to cool on the left and warm to warm on the right, non-pitting edema noted to the dorsal aspect of the right foot, especially the right hallux NEURO: Protective sensation significantly diminished DERM: Ulceration present submet 1 R foot, measuring 4.0 cm X 4.5 cm, 100% granular base with fibrotic border, positive malodor, negative for drainage, positive tunneling laterally, negative probe to bone MSK: patient range of motion within normal limits - Neurological Exam Neurological Exam: Alert, Awake, Oriented x3 - Psychiatric Exam Psychiatric exam: Normal Affect, Normal Mood Assessment and Plan - Assessment and Plan (Free Text) Assessment: 72 y/o male patient seen and evaluated at bedside for a chronic ulceration to submetatarsal 1 of the right foot Plan: Patient seen and evaluated Plan discussed with attending Dr. Alvarez Charts, labs and vitals reviewed Extremity US- no DVT Foot X-rays- chronic osteomyelitis suspected 1st digit, no acute findings Lower Extremity MRI- prominent signal changes with decreased T1 signal and increased STIR signal, reticulation and edema noted wihtin the adjacent subq tissue, fluid at the 1st MTPJ, changes noted within the medial sesamoid bone, changes may be the sequelae of acute infectious and inflammatory changes such as acute OM, marked heterotrophic changes noted at the level of the 2nd met bone at the side of fracture deformity with callus formation Wound Cx- Pending HgA1c- 9.8 mg/dL ESR- Pending Wound debrided- 2nd debridement of wound with sterile #10 blade, removed hyperkeratotic, macerated tissue surrounding the wound Wound dressed with wet to dry dressing Continue IV Antibiotics as per ID recommendation by Dr. Ball Patient transfer to [facility] is on hold due to persistent HR in the 40s with [id number] Podiatry will continue to follow the patient while in-house
--- NOTE | 2018-02-04 09:49 | CP.PCM.PN ---
Subjective - Date & Time of Evaluation Date of Evaluation: 02/04/18 Time of Evaluation: 09:47 - Subjective Subjective: pt afebrile no wbc anxious to return home no pain hd stable no acute distress Objective - Vital Signs/Intake and Output Vital Signs (last 24 hours): Temp Pulse Resp BP Pulse Ox 98.1 F 62 18 168/77 H 95 02/04/18 08:00 02/04/18 08:00 02/04/18 08:00 02/04/18 08:00 02/04/18 08:00 - Medications Medications: Current Medications Allopurinol (Zyloprim) 300 mg PO DAILY [facility] Last Admin: 02/03/18 09:31 Dose: 300 mg Amlodipine Besylate (Norvasc) 10 mg PO DAILY [facility] Last Admin: 02/03/18 09:27 Dose: 10 mg Aspirin (Aspirin Chewable) 81 mg PO DAILY [facility] Last Admin: 02/03/18 09:30 Dose: 81 mg Atorvastatin Calcium (Lipitor) 10 mg PO DAILY [facility] Last Admin: 02/03/18 09:30 Dose: 10 mg Enoxaparin Sodium (Lovenox) 40 mg SC DAILY [facility] PRN Reason: Protocol Last Admin: 02/03/18 09:31 Dose: 40 mg Finasteride (Proscar) 5 mg PO DAILY [facility] Last Admin: 02/03/18 09:31 Dose: 5 mg Hydralazine HCl (Apresoline) 10 mg PO TID [facility] Last Admin: 02/03/18 17:03 Dose: 10 mg Vancomycin HCl 1 gm/ Sodium (Chloride) 250 mls @ 166.667 mls/hr IVPB Q12 [facility] PRN Reason: Protocol Last Admin: 02/03/18 22:05 Dose: 166.667 mls/hr Piperacillin Sod/Tazobactam (Sod 3.375 gm/ Sodium Chloride) 100 mls @ 100 mls/ hr IVPB Q8 [facility] PRN Reason: Protocol Last Admin: 02/04/18 01:14 Dose: 100 mls/hr Insulin Detemir (Levemir) 50 units SC BID [facility] Last Admin: 02/03/18 17:07 Dose: 50 units Insulin Human Lispro (Humalog) 0 units SC ACHS [facility] PRN Reason: Protocol Last Admin: 02/04/18 08:07 Dose: Not Given Lisinopril (Zestril) 20 mg PO BID [facility] Last Admin: 02/03/18 17:10 Dose: 20 mg Pregabalin (Lyrica) 150 mg PO BID [facility] Last Admin: 02/03/18 17:09 Dose: 150 mg Sertraline HCl (Zoloft) 50 mg PO DAILY [facility] Last Admin: 02/03/18 09:31 Dose: 50 mg - Labs Labs: 02/04/18 05:00 02/04/18 05:00 - Constitutional Appears: Non-toxic, No Acute Distress - Head Exam Head Exam: ATRAUMATIC, NORMOCEPHALIC - Eye Exam Eye Exam: EOMI, Normal appearance, PERRL Pupil Exam: NORMAL ACCOMODATION - ENT Exam ENT Exam: Mucous Membranes Moist, Normal Oropharynx - Neck Exam Neck Exam: Full ROM, Normal Inspection - Respiratory Exam Respiratory Exam: Clear to Ausculation Bilateral, NORMAL BREATHING PATTERN - Cardiovascular Exam Cardiovascular Exam: RRR, +S1, +S2 - GI/Abdominal Exam GI & Abdominal Exam: Soft, Normal Bowel Sounds. absent: Organomegaly - Extremities Exam Extremities Exam: Normal Capillary Refill. absent: Calf Tenderness - Back Exam Back Exam: absent: CVA tenderness (L), CVA tenderness (R) - Neurological Exam Neurological Exam: Alert, Awake - Psychiatric Exam Psychiatric exam: Normal Affect, Normal Mood - Skin Skin Exam: Dry, Warm Assessment and Plan - Assessment and Plan (Free Text) Plan: 72 years old male with hx of DM, chronic non healing right great toe ulcer, CKD with Cardio Catheterization done on 01/29/18 through the left radial artery approach. He comes with fever that began today, along with chills and mild dizziness. No coughing, nausea, vomits. No throat ache, SOB, chest pain, abdominal pain, Diarrhea, Dysuria. Acute on Chronic Cellulitis, concern for Osteomyelitis? Fever etiology unclear in patient who recently had a cardiac cath but also has a chronic non healing ulcer at the right great toe - most likely secondary to acute on chronic infection great toe: likely cellulitis - Consult Dr Ball ID - Consult Dr Vaughn cardiology - Podiatry Consult appreciated, s/p debridement - Blood culture PENDING - Urine culture PENDING - ECHO pending - Vancomycin and Zosyn, awaiting wound cx - Obtaining XR of foot to eval for osteo? - today, was not done yesterday Dehydration - IV fluids - Follow renal labs DM II with hyperglycemia - Levemir - Lispro sliding scale according to accucheck - HbA1c DVT prophylaxis with Lovenox Code Status: Full
[2018-02-04] MEDS ORDERED: Potassium Chloride 20 mEq ER Tab PO ONE (09:50)
--- NOTE | 2018-02-04 10:02 | CP.PCM.PN ---
Subjective - Date & Time of Evaluation Date of Evaluation: 02/04/18 Time of Evaluation: 10:02 - Subjective Subjective: ID note- Pt. seen and examined today. Pt. feels better. no more fevers. denies any cough. pt. seen by podiatry and s/p superficial debridement of the toe ulcer and cx sent as per podiatry resident. Objective - Vital Signs/Intake and Output Vital Signs (last 24 hours): Temp Pulse Resp BP Pulse Ox 98.1 F 62 18 168/77 H 95 02/04/18 08:00 02/04/18 08:00 02/04/18 08:00 02/04/18 08:00 02/04/18 08:00 - Medications Medications: Current Medications Allopurinol (Zyloprim) 300 mg PO DAILY [facility] Last Admin: 02/03/18 09:31 Dose: 300 mg Amlodipine Besylate (Norvasc) 10 mg PO DAILY [facility] Last Admin: 02/03/18 09:27 Dose: 10 mg Aspirin (Aspirin Chewable) 81 mg PO DAILY [facility] Last Admin: 02/03/18 09:30 Dose: 81 mg Atorvastatin Calcium (Lipitor) 10 mg PO DAILY [facility] Last Admin: 02/03/18 09:30 Dose: 10 mg Enoxaparin Sodium (Lovenox) 40 mg SC DAILY [facility] PRN Reason: Protocol Last Admin: 02/03/18 09:31 Dose: 40 mg Finasteride (Proscar) 5 mg PO DAILY [facility] Last Admin: 02/03/18 09:31 Dose: 5 mg Hydralazine HCl (Apresoline) 10 mg PO TID [facility] Last Admin: 02/03/18 17:03 Dose: 10 mg Vancomycin HCl 1 gm/ Sodium (Chloride) 250 mls @ 166.667 mls/hr IVPB Q12 [facility] PRN Reason: Protocol Last Admin: 02/03/18 22:05 Dose: 166.667 mls/hr Piperacillin Sod/Tazobactam (Sod 3.375 gm/ Sodium Chloride) 100 mls @ 100 mls/ hr IVPB Q8 [facility] PRN Reason: Protocol Last Admin: 02/04/18 01:14 Dose: 100 mls/hr Insulin Detemir (Levemir) 50 units SC BID [facility] Last Admin: 02/03/18 17:07 Dose: 50 units Insulin Human Lispro (Humalog) 0 units SC ACHS [facility] PRN Reason: Protocol Last Admin: 02/04/18 08:07 Dose: Not Given Lisinopril (Zestril) 20 mg PO BID [facility] Last Admin: 02/03/18 17:10 Dose: 20 mg Potassium Chloride (K-Dur 20 Meq Er Tab) 40 meq PO ONCE ONE Stop: 02/04/18 09:51 Pregabalin (Lyrica) 150 mg PO BID [facility] Last Admin: 02/03/18 17:09 Dose: 150 mg Sertraline HCl (Zoloft) 50 mg PO DAILY [facility] Last Admin: 02/03/18 09:31 Dose: 50 mg - Labs Labs: - Additional Findings Additional findings: - Constitutional Appears: No Acute Distress - Head Exam Head Exam: ATRAUMATIC - Eye Exam Eye Exam: EOMI - ENT Exam ENT Exam: Normal Oropharynx - Neck Exam Neck exam: Positive for: Full Rom - Respiratory Exam Respiratory Exam: Clear to Auscultation Bilateral, NORMAL BREATHING PATTERN - Cardiovascular Exam Cardiovascular Exam: RRR, +S1, +S2 - GI/Abdominal Exam GI & Abdominal Exam: Normal Bowel Sounds, Soft Additional comments: NT, ND - Extremities Exam Additional comments: right foot erythema much decreased, edema is resolved. right great toe plantar ulcer necrotic crust removed by podiatry and has scant yellow discharge, malodor still present left foot no erythema, no ulcers right knee prosthetic joint surgical site clean/dry/intact left arm cath site with echymosis and bruising but no edema, no hematoma - Neurological Exam Neurological exam: Alert, Oriented x 3 Laboratory Results - last 72 hr 02/02/18 02/02/18 02/02/18 19:40 20:00 21:48 WBC 13.8 H D RBC 5.31 Hgb 14.3 Hct 43.6 MCV 82.2 D MCH 27.0 MCHC 32.8 L RDW 17.0 H Plt Count 149 MPV 9.2 Neut % (Auto) 83.4 H Lymph % (Auto) 8.2 L [place] % (Auto) 7.6 Eos % (Auto) 0.4 Baso % (Auto) 0.4 Neut # (Auto) 11.6 H Lymph # (Auto) 1.1 [place] # (Auto) 1.0 H Eos # (Auto) 0.1 Baso # (Auto) 0.1 Neutrophils % (Manual) 79 H Band Neutrophils % 4 H Lymphocytes % (Manual) 6 L Reactive Lymphs % 8 H Monocytes % (Manual) 2 Eosinophils % (Manual) 1 Platelet Estimate Normal Poikilocytosis (manual Slight Anisocytosis (manual) Slight Ovalocytes Slight ESR pO2 VBG pH VBG pCO2 VBG HCO3 VBG Total CO2 VBG O2 Sat (Calc) VBG Base Excess VBG Potassium Glucose Lactate FiO2 Sodium Potassium Chloride Carbon Dioxide Anion Gap BUN Creatinine Est GFR ( Amer) Est GFR (Non-Af Amer) POC Glucose (mg/dL) 293 H 248 H Random Glucose Hemoglobin A1c Calcium Total Bilirubin AST ALT Alkaline Phosphatase Troponin I Total Protein Albumin Globulin Albumin/Globulin Ratio Venous Blood Potassium Urine Color Urine Clarity Urine pH Ur Specific [place] Urine Protein Urine Glucose (UA) Urine Ketones Urine Blood Urine Nitrate Urine Bilirubin Urine Urobilinogen Ur Leukocyte Esterase Urine RBC (Auto) Urine Microscopic WBC Ur Squamous Epith Cells Vancomycin Trough 02/02/18 02/02/18 02/02/18 21:48 21:48 23:18 WBC RBC Hgb Hct MCV MCH MCHC RDW Plt Count MPV Neut % (Auto) Lymph % (Auto) [place] % (Auto) Eos % (Auto) Baso % (Auto) Neut # (Auto) Lymph # (Auto) [place] # (Auto) Eos # (Auto) Baso # (Auto) Neutrophils % (Manual) Band Neutrophils % Lymphocytes % (Manual) Reactive Lymphs % Monocytes % (Manual) Eosinophils % (Manual) Platelet Estimate Poikilocytosis (manual Anisocytosis (manual) Ovalocytes ESR pO2 41 VBG pH 7.48 H VBG pCO2 33 L VBG HCO3 25.7 VBG Total CO2 25.6 VBG O2 Sat (Calc) 88.1 H VBG Base Excess 1.6 VBG Potassium 3.5 L Glucose 111 H Lactate 1.3 FiO2 21.0 Sodium 137 135.0 Potassium 3.8 Chloride 100 102.0 Carbon Dioxide 26 Anion Gap 15 BUN 23 H Creatinine 1.2 Est GFR ( Amer) > 60 Est GFR (Non-Af Amer) 59 POC Glucose (mg/dL) Random Glucose 158 H Hemoglobin A1c Calcium 9.7 Total Bilirubin 1.1 AST 16 L ALT 21 Alkaline Phosphatase 85 Troponin I 0.0450 Total Protein 7.5 Albumin 4.3 Globulin 3.2 Albumin/Globulin Ratio 1.4 Venous Blood Potassium 3.5 L Urine Color Yellow Urine Clarity Slighty-cloudy Urine pH 5.0 Ur Specific [place] 1.015 Urine Protein >=500 Urine Glucose (UA) >=500 Urine Ketones Negative Urine Blood Small Urine Nitrate Negative Urine Bilirubin Negative Urine Urobilinogen 0.2-1.0 Ur Leukocyte Esterase Neg Urine RBC (Auto) 4 H Urine Microscopic WBC < 1 Ur Squamous Epith Cells < 1 Vancomycin Trough 02/03/18 02/03/18 02/03/18 00:57 04:20 04:20 WBC 10.6 RBC 4.62 Hgb 12.7 Hct 38.6 MCV 83.5 MCH 27.5 MCHC 33.0 RDW 16.8 H Plt Count 128 L D MPV 9.2 Neut % (Auto) 77.4 H Lymph % (Auto) 12.4 L [place] % (Auto) 9.4 Eos % (Auto) 0.4 Baso % (Auto) 0.4 Neut # (Auto) 8.2 H Lymph # (Auto) 1.3 [place] # (Auto) 1.0 H Eos # (Auto) 0.0 Baso # (Auto) 0.0 Neutrophils % (Manual) Band Neutrophils % Lymphocytes % (Manual) Reactive Lymphs % Monocytes % (Manual) Eosinophils % (Manual) Platelet Estimate Poikilocytosis (manual Anisocytosis (manual) Ovalocytes ESR pO2 VBG pH VBG pCO2 VBG HCO3 VBG Total CO2 VBG O2 Sat (Calc) VBG Base Excess VBG Potassium Glucose Lactate FiO2 Sodium 139 Potassium 3.4 L Chloride 106 Carbon Dioxide 25 Anion Gap 11 BUN 20 Creatinine 1.1 Est GFR ( Amer) > 60 Est GFR (Non-Af Amer) > 60 POC Glucose (mg/dL) 119 H Random Glucose 165 H Hemoglobin A1c Calcium 8.6 Total Bilirubin AST ALT Alkaline Phosphatase Troponin I Total Protein Albumin Globulin Albumin/Globulin Ratio Venous Blood Potassium Urine Color Urine Clarity Urine pH Ur Specific [place] Urine Protein Urine Glucose (UA) Urine Ketones Urine Blood Urine Nitrate Urine Bilirubin Urine Urobilinogen Ur Leukocyte Esterase Urine RBC (Auto) Urine Microscopic WBC Ur Squamous Epith Cells Vancomycin Trough 02/03/18 02/03/18 02/03/18 05:06 11:34 11:37 WBC RBC Hgb Hct MCV MCH MCHC RDW Plt Count MPV Neut % (Auto) Lymph % (Auto) [place] % (Auto) Eos % (Auto) Baso % (Auto) Neut # (Auto) Lymph # (Auto) [place] # (Auto) Eos # (Auto) Baso # (Auto) Neutrophils % (Manual) Band Neutrophils % Lymphocytes % (Manual) Reactive Lymphs % Monocytes % (Manual) Eosinophils % (Manual) Platelet Estimate Poikilocytosis (manual Anisocytosis (manual) Ovalocytes ESR 9 pO2 VBG pH VBG pCO2 VBG HCO3 VBG Total CO2 VBG O2 Sat (Calc) VBG Base Excess VBG Potassium Glucose Lactate FiO2 Sodium Potassium Chloride Carbon Dioxide Anion Gap BUN Creatinine Est GFR ( Amer) Est GFR (Non-Af Amer) POC Glucose (mg/dL) 152 H 169 H Random Glucose Hemoglobin A1c Calcium Total Bilirubin AST ALT Alkaline Phosphatase Troponin I Total Protein Albumin Globulin Albumin/Globulin Ratio Venous Blood Potassium Urine Color Urine Clarity Urine pH Ur Specific [place] Urine Protein Urine Glucose (UA) Urine Ketones Urine Blood Urine Nitrate Urine Bilirubin Urine Urobilinogen Ur Leukocyte Esterase Urine RBC (Auto) Urine Microscopic WBC Ur Squamous Epith Cells Vancomycin Trough 02/03/18 02/03/18 02/03/18 16:37 21:00 21:43 WBC RBC Hgb Hct MCV MCH MCHC RDW Plt Count MPV Neut % (Auto) Lymph % (Auto) [place] % (Auto) Eos % (Auto) Baso % (Auto) Neut # (Auto) Lymph # (Auto) [place] # (Auto) Eos # (Auto) Baso # (Auto) Neutrophils % (Manual) Band Neutrophils % Lymphocytes % (Manual) Reactive Lymphs % Monocytes % (Manual) Eosinophils % (Manual) Platelet Estimate Poikilocytosis (manual Anisocytosis (manual) Ovalocytes ESR pO2 VBG pH VBG pCO2 VBG HCO3 VBG Total CO2 VBG O2 Sat (Calc) VBG Base Excess VBG Potassium Glucose Lactate FiO2 Sodium Potassium Chloride Carbon Dioxide Anion Gap BUN Creatinine Est GFR ( Amer) Est GFR (Non-Af Amer) POC Glucose (mg/dL) 137 H 74 Random Glucose Hemoglobin A1c Calcium Total Bilirubin AST ALT Alkaline Phosphatase Troponin I Total Protein Albumin Globulin Albumin/Globulin Ratio Venous Blood Potassium Urine Color Urine Clarity Urine pH Ur Specific [place] Urine Protein Urine Glucose (UA) Urine Ketones Urine Blood Urine Nitrate Urine Bilirubin Urine Urobilinogen Ur Leukocyte Esterase Urine RBC (Auto) Urine Microscopic WBC Ur Squamous Epith Cells Vancomycin Trough 10.1 H 02/03/18 02/04/18 02/04/18 23:13 00:40 05:00 WBC RBC Hgb Hct MCV MCH MCHC RDW Plt Count MPV Neut % (Auto) Lymph % (Auto) [place] % (Auto) Eos % (Auto) Baso % (Auto) Neut # (Auto) Lymph # (Auto) [place] # (Auto) Eos # (Auto) Baso # (Auto) Neutrophils % (Manual) Band Neutrophils % Lymphocytes % (Manual) Reactive Lymphs % Monocytes % (Manual) Eosinophils % (Manual) Platelet Estimate Poikilocytosis (manual Anisocytosis (manual) Ovalocytes ESR pO2 VBG pH VBG pCO2 VBG HCO3 VBG Total CO2 VBG O2 Sat (Calc) VBG Base Excess VBG Potassium Glucose Lactate FiO2 Sodium Potassium Chloride Carbon Dioxide Anion Gap BUN Creatinine Est GFR ( Amer) Est GFR (Non-Af Amer) POC Glucose (mg/dL) 121 H 156 H Random Glucose Hemoglobin A1c 9.8 H Calcium Total Bilirubin AST ALT Alkaline Phosphatase Troponin I Total Protein Albumin Globulin Albumin/Globulin Ratio Venous Blood Potassium Urine Color Urine Clarity Urine pH Ur Specific [place] Urine Protein Urine Glucose (UA) Urine Ketones Urine Blood Urine Nitrate Urine Bilirubin Urine Urobilinogen Ur Leukocyte Esterase Urine RBC (Auto) Urine Microscopic WBC Ur Squamous Epith Cells Vancomycin Trough 02/04/18 02/04/18 02/04/18 05:00 05:00 05:25 WBC 7.8 RBC 5.12 Hgb 14.2 Hct 42.5 MCV 82.9 MCH 27.8 MCHC 33.5 RDW 16.8 H Plt Count 135 MPV Neut % (Auto) Lymph % (Auto) [place] % (Auto) Eos % (Auto) Baso % (Auto) Neut # (Auto) Lymph # (Auto) [place] # (Auto) Eos # (Auto) Baso # (Auto) Neutrophils % (Manual) Band Neutrophils % Lymphocytes % (Manual) Reactive Lymphs % Monocytes % (Manual) Eosinophils % (Manual) Platelet Estimate Poikilocytosis (manual Anisocytosis (manual) Ovalocytes ESR pO2 VBG pH VBG pCO2 VBG HCO3 VBG Total CO2 VBG O2 Sat (Calc) VBG Base Excess VBG Potassium Glucose Lactate FiO2 Sodium 140 Potassium 3.7 Chloride 107 Carbon Dioxide 27 Anion Gap 10 BUN 15 Creatinine 1.0 Est GFR ( Amer) > 60 Est GFR (Non-Af Amer) > 60 POC Glucose (mg/dL) 71 Random Glucose 78 Hemoglobin A1c Calcium 8.7 Total Bilirubin AST ALT Alkaline Phosphatase Troponin I Total Protein Albumin Globulin Albumin/Globulin Ratio Venous Blood Potassium Urine Color Urine Clarity Urine pH Ur Specific [place] Urine Protein Urine Glucose (UA) Urine Ketones Urine Blood Urine Nitrate Urine Bilirubin Urine Urobilinogen Ur Leukocyte Esterase Urine RBC (Auto) Urine Microscopic WBC Ur Squamous Epith Cells Vancomycin Trough 02/04/18 11:03 WBC RBC Hgb Hct MCV MCH MCHC RDW Plt Count MPV Neut % (Auto) Lymph % (Auto) [place] % (Auto) Eos % (Auto) Baso % (Auto) Neut # (Auto) Lymph # (Auto) [place] # (Auto) Eos # (Auto) Baso # (Auto) Neutrophils % (Manual) Band Neutrophils % Lymphocytes % (Manual) Reactive Lymphs % Monocytes % (Manual) Eosinophils % (Manual) Platelet Estimate Poikilocytosis (manual Anisocytosis (manual) Ovalocytes ESR pO2 VBG pH VBG pCO2 VBG HCO3 VBG Total CO2 VBG O2 Sat (Calc) VBG Base Excess VBG Potassium Glucose Lactate FiO2 Sodium Potassium Chloride Carbon Dioxide Anion Gap BUN Creatinine Est GFR ( Amer) Est GFR (Non-Af Amer) POC Glucose (mg/dL) 152 H Random Glucose Hemoglobin A1c Calcium Total Bilirubin AST ALT Alkaline Phosphatase Troponin I Total Protein Albumin Globulin Albumin/Globulin Ratio Venous Blood Potassium Urine Color Urine Clarity Urine pH Ur Specific [place] Urine Protein Urine Glucose (UA) Urine Ketones Urine Blood Urine Nitrate Urine Bilirubin Urine Urobilinogen Ur Leukocyte Esterase Urine RBC (Auto) Urine Microscopic WBC Ur Squamous Epith Cells Vancomycin Trough Microbiology 02/02/18 21:48 Urine,Clean Catch Urine Culture - Final No Growth (<1,000 CFU/ML) 02/02/18 21:45 Blood-Venous Blood Culture - Preliminary NO GROWTH AFTER 24 HOURS 02/02/18 22:00 Blood-Venous Blood Culture - Preliminary NO GROWTH AFTER 24 HOURS Accession No. : [id number] Patient Name / ID : TANESHA BARRIOS / [id number] Exam Date : 02/03/2018 09:57:43 ( Approved ) Study Comment : Sex / Age : M / [id number] Creator : Khalida Castillo MD Dictator : Khalida Castillo MD Personal Development Mentor : Funeral Planner : Khalida Castillo MD Approver2 : Report Date : 02/03/2018 11:14:58 My Comment : PROCEDURE: Bilateral lower extremity venous duplex Doppler. HISTORY: bilateral le sweling COMPARISON: None available. TECHNIQUE: Bilateral common femoral, superficial femoral, popliteal and posterior tibial veins were evaluated. Flow was assessed with color Doppler, compressibility, assessment of phasic flow and augmentation response. FINDINGS: COMMON FEMORAL VEIN: Right CFV: Unremarkable. Left CFV: Unremarkable. SUPERFICIAL FEMORAL VEIN: Right SFV: Unremarkable. Left SFV: Unremarkable. POPLITEAL VEIN: Right Popliteal: Unremarkable. Left Popliteal: Unremarkable. POSTERIOR TIBIAL VEIN: Right PTV: Unremarkable. Left PTV: Unremarkable. OTHER FINDINGS: Mild subcutaneous edema bilaterally. IMPRESSION: No evidence of deep venous thrombosis. 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 pt. clinically much better. remaisn afebrile past 24 hours. UA- neg cxr- negative as per report. LE doplers- No DVt as per report spoke with Dr.Faraz ROCHA vasculature patent just has calcifications and as per him cardiac cath done By another cardiology group not by Dr.Faraz bledsoe per him pt. had negative stress test . Right toe ulcer most likely the source of infection and fever. blood cx- neg x 2 wound cx- pending plan- advise to continue with IV vanco and add zosyn since he is diabetic pending further results. Keep vanco trough <15. advise if pt. can have MRI ( in light of prosthetic knee0 To get MRI of the right toe and r/o OM and if he can't get MRI then advise to get Bone scan to rule out OM. length of antibiotics pending imaging results . case d/w podiatry and . All above d/w patient at length and he verbalizes full understanding of all above.
[2018-02-04] MEDS: Enoxaparin 40 mg Syringe SC SCH (10:29)
[2018-02-04] MEDS: Insulin Detemir 100 Units/ml Inj SC SCH ×2 (10:29→17:12)
--- NOTE | 2018-02-04 10:40 | CARD ---
APPROVED REPORT EXAM: Two-dimensional and M-mode echocardiogram with Doppler and color Doppler. Other Information Quality : GoodRhythm : NSR INDICATION Infection: S/P CATH 1 WEEK AGO 2D DIMENSIONS IVSd2.27 (0.7-1.1cm)LVDd4.56 (3.9-5.9cm) LVOT Diameter2.64 (1.8-2.4cm)PWd1.23 (0.7-1.1cm) IVSs1.76 (0.8-1.2cm)LVDs3.81 (2.5-4.0cm) FS (%) 16.5 %PWs1.38 (0.8-1.2cm) M-Mode DIMENSIONS Left Atrium (MM)4.97 (2.5-4.0cm)IVSd1.38 (0.7-1.1cm) Aortic Root3.84 (2.2-3.7cm)LVDd4.97 (4.0-5.6cm) Aortic Cusp Exc.2.34 (1.5-2.0cm)PWd1.22 (0.7-1.1cm) IVSs1.78 cmFS (%) 43 % LVDs2.84 (2.0-3.8cm)PWs1.25 cm Mitral Valve MV E Matyimsf32.3cm/sMV DECEL [id number] A Mhczcfcw99.8cm/s MV SEY82byI/A ratio4.9MVA (PHT)3.49cm2 TDI Lateral E' Peak V12.30cm/sMedial E' Peak V5.62cm/sE/Lateral E'7.1 E/Medial E'15.5 Pulmonary Valve PV Peak Llqcivua64.8cm/s Tricuspid Valve TR Peak [id number] [id number] Peak Gr.29mmHg [id number] LEFT VENTRICLE The left ventricle is normal size. There is moderate concentric left ventricular hypertrophy. The left ventricular function is normal. The left ventricular ejection fraction is within the normal range. LVEF 65% There is normal LV segmental wall motion. Tissue Doppler imaging reveals abnormal left ventricular diastolic dysfunction. Transmitral Doppler flow pattern is Grade I-abnormal relaxation pattern. No left ventricle thrombus noted on this study. There is no ventricular septal defect visualized. There is no left ventricular aneurysm. There is no mass noted in the left ventricle. RIGHT VENTRICLE The right ventricle is normal size. There is normal right ventricular wall thickness. The right ventricular systolic function is normal. ATRIA The left atrium is mildly dilated. The right atrium size is normal. The interatrial septum is intact with no evidence for an atrial septal defect. AORTIC VALVE The aortic valve is mildly thickened but opens well. No aortic regurgitation is present. There is no aortic valvular stenosis. There is no aortic valvular vegetation. MITRAL VALVE The mitral valve is normal in structure. There is no evidence of mitral valve prolapse. There is no mitral valve stenosis. Mitral regurgitation is mild. TRICUSPID VALVE The tricuspid valve is normal in structure. There is mild tricuspid regurgitation. There is no tricuspid valve prolapse or vegetation. There is no tricuspid valve stenosis. PULMONIC VALVE The pulmonary valve is normal in structure. There is no pulmonic valvular regurgitation. There is no pulmonic valvular stenosis. GREAT VESSELS The aortic root is normal in size. The IVC is normal in size and collapses >50% with inspiration. PERICARDIAL EFFUSION The pericardium appears normal. <Conclusion> The left ventricle is normal size. There is moderate concentric left ventricular hypertrophy. The left ventricular function is normal. The left ventricular ejection fraction is within the normal range. LVEF 65% The left atrium is mildly dilated. The aortic valve is mildly thickened but opens well. Mitral regurgitation is mild.
[2018-02-04] MEDS ORDERED: Gadodiamide 287 MG/ML VIAL (15ML) IV ONE (13:49)
--- NOTE | 2018-02-04 13:53 | RAD ---
PROCEDURE: Right Foot Radiographs. HISTORY: Osteomyelitis suspected 1st digit. COMPARISON: 04/17/2017 FINDINGS: BONES: Postoperative findings again identified right 1st digit. No evidence of superimposed acute osteomyelitis. Stable findings 2nd metatarsal, healed fracture. Similar less pronounced changes identified 3rd digit. JOINTS: Multiple hammertoe deformities. SOFT TISSUES: Normal. OTHER FINDINGS: None. IMPRESSION: Evolving postoperative findings. No radiographic findings of acute osteomyelitis.
--- NOTE | 2018-02-04 16:01 | MRI ---
MRI right foot History: Infection. Evaluate for osteomyelitis. Comparison: X-ray dated 02/04/2018 Technique: Multi-echo multiplanar sequences were performed through the right foot without and with the use of intravenous contrast. Findings: Prominent osseous deformity noted at the level of the 1st proximal phalanx extending to the level of the mid 1st metatarsal head as well as the base of the 1st distal phalanx. At this level, there is prominent signal changes with decreased T1 signal and increased STIR signal. Prominent reticulation and edema is noted within the adjacent subcutaneous soft tissues. Fluid at the 1st MTP joint space. Signal change also noted within the medial sesamoid bone with decreased T1 signal and increased STIR signal. These changes may be the sequelae of acute infectious and or inflammatory changes such as acute osteomyelitis. In the setting of postsurgical changes this may represent superimposed acute infectious changes on the postsurgical changes. Given the extent of the signal abnormality within the 1st proximal phalanx underlying osteonecrosis cannot be excluded. Clinical correlation. Degenerative changes noted at the articulation of the 1st metatarsal bone with the medial cuneiform bone with some minimal reactive edema at the 1st metatarsal base. Mild fraying of visualized Lisfranc ligament which may represent a sprain and or partial tear. Marked heterotopic bone formation noted at the level of the 2nd metatarsal bone at the site of the fracture deformity with prominent new bone and callus formation noted. Prominent signal changes noted at the articulation of the 3rd proximal phalanx and metatarsal head with decreased T1 signal and increased STIR signal. This may represent the sequelae of an underlying bone infraction with articular surface and or subchondral surface collapse at the 3rd metatarsal head. Additional considerations may be the sequelae of acute infectious and or inflammatory changes versus degenerative change. Mild minimal nonspecific reactive edema at the lateral head of the 5th metatarsal bone. Degenerative changes noted at the dorsal aspect of the talonavicular joint space with some bony hypertrophy and reactive edema noted within the anterior talus. Failure of fat suppression on the coronal and short axis sequences, markedly limits evaluation. Impression: 1. Prominent osseous deformity noted at the level of the 1st proximal phalanx extending to the level of the mid 1st metatarsal head as well as the base of the 1st distal phalanx. At this level, there is prominent signal changes with decreased T1 signal and increased STIR signal. Prominent reticulation and edema is noted within the adjacent subcutaneous soft tissues. Fluid at the 1st MTP joint space. Signal change also noted within the medial sesamoid bone with decreased T1 signal and increased STIR signal. These changes may be the sequelae of acute infectious and or inflammatory changes such as acute osteomyelitis. In the setting of postsurgical changes this may represent superimposed acute infectious changes on the postsurgical changes. Given the extent of the signal abnormality within the 1st proximal phalanx underlying osteonecrosis cannot be excluded. Clinical correlation. 2. Degenerative changes noted at the articulation of the 1st metatarsal bone with the medial cuneiform bone with some minimal reactive edema at the 1st metatarsal base. 3. Mild fraying of visualized Lisfranc ligament which may represent a sprain and or partial tear. 4. Marked heterotopic bone formation noted at the level of the 2nd metatarsal bone at the site of the fracture deformity with prominent new bone and callus formation noted. 5. Prominent signal changes noted at the articulation of the 3rd proximal phalanx and metatarsal head with decreased T1 signal and increased STIR signal. This may represent the sequelae of an underlying bone infraction with articular surface and or subchondral surface collapse at the 3rd metatarsal head. Additional considerations may be the sequelae of acute infectious and or inflammatory changes versus degenerative change. 6. Mild minimal nonspecific reactive edema at the lateral head of the 5th metatarsal bone. 7. Degenerative changes noted at the dorsal aspect of the talonavicular joint space with some bony hypertrophy and reactive edema noted within the anterior talus. 8. Failure of fat suppression on the coronal and short axis sequences, markedly limits evaluation.
[2018-02-05] MEDS: Piperacillin/Tazobact 3.375 GM in Sodium Chloride 0.9% 100 ML IVPB SCH ×3 (02:51→16:44)
[2018-02-05 06:00] LABS: HEMOGLOBIN 13.6 g/dL (12.0-18.0); MEAN CELL VOLUME 83.4 fl (80.0-94.0); MEAN CORPUSCULAR HEMOGLOBIN 27.5 pg (27.0-31.0); MEAN CORPUSCULAR HGB CONC 32.9 g/dL (33.0-37.0); RBC 4.95 Mil/uL (4.40-5.90); RED CELL DISTRIBUTION WIDTH 16.9 % (11.5-14.5); WHITE BLOOD COUNT 7.6 K/uL (4.8-10.8)
[2018-02-05 06:07] LABS: BLOOD UREA NITROGEN 16 mg/dl (9-20); CALCIUM 8.7 mg/dL (8.4-10.2); GFR AFRICAN-AMERICAN > 60; GFR NON-AFRICAN AMERICAN > 60
--- NOTE | 2018-02-05 06:58 | CP.PCM.PN ---
Subjective - Date & Time of Evaluation Date of Evaluation: 02/05/18 Time of Evaluation: 06:54 - Subjective Subjective: Podiatry progress note for Dr. Alvarez, 72 y/o male seen and evaluated at bedside. Patient was resting comfortably and in no acute distress. Patient's dressing was clean, dry and intact. Patient denied any pain at this time. Patient is stating he would like to go home by tomorrow. Patient denies any new pedal complaints. Patient denies F/V/N/SOB/ chills Objective - Vital Signs/Intake and Output Vital Signs (last 24 hours): Temp Pulse Resp BP Pulse Ox 97.4 F L 55 L 18 157/79 H 98 02/05/18 04:52 02/05/18 04:52 02/05/18 04:52 02/05/18 04:52 02/05/18 04:52 - Medications Medications: Current Medications Allopurinol (Zyloprim) 300 mg PO DAILY [facility] Last Admin: 02/04/18 10:33 Dose: 300 mg Amlodipine Besylate (Norvasc) 10 mg PO DAILY [facility] Last Admin: 02/04/18 10:33 Dose: 10 mg Aspirin (Aspirin Chewable) 81 mg PO DAILY [facility] Last Admin: 02/04/18 10:25 Dose: 81 mg Atorvastatin Calcium (Lipitor) 10 mg PO DAILY [facility] Last Admin: 02/04/18 10:29 Dose: 10 mg Enoxaparin Sodium (Lovenox) 40 mg SC DAILY [facility] PRN Reason: Protocol Last Admin: 02/04/18 10:29 Dose: 40 mg Finasteride (Proscar) 5 mg PO DAILY [facility] Last Admin: 02/04/18 10:33 Dose: 5 mg Hydralazine HCl (Apresoline) 25 mg PO TID [facility] Last Admin: 02/04/18 17:11 Dose: 25 mg Vancomycin HCl 1 gm/ Sodium (Chloride) 250 mls @ 166.667 mls/hr IVPB Q12 [facility] PRN Reason: Protocol Last Admin: 02/04/18 22:00 Dose: 166.667 mls/hr Piperacillin Sod/Tazobactam (Sod 3.375 gm/ Sodium Chloride) 100 mls @ 100 mls/ hr IVPB Q8 [facility] PRN Reason: Protocol Last Admin: 02/05/18 02:51 Dose: 100 mls/hr Insulin Detemir (Levemir) 50 units SC BID [facility] Last Admin: 02/04/18 17:12 Dose: 50 units Insulin Human Lispro (Humalog) 0 units SC [facility] PRN Reason: Protocol Last Admin: 02/04/18 23:00 Dose: Not Given Lisinopril (Zestril) 20 mg PO BID [facility] Last Admin: 02/04/18 16:32 Dose: 20 mg Pregabalin (Lyrica) 150 mg PO BID [facility] Last Admin: 02/04/18 17:10 Dose: 150 mg Sertraline HCl (Zoloft) 50 mg PO DAILY [facility] Last Admin: 02/04/18 10:33 Dose: 50 mg - Labs Labs: 02/05/18 05:24 02/05/18 05:24 - Constitutional Appears: Well, Non-toxic, No Acute Distress - Head Exam Head Exam: ATRAUMATIC, NORMOCEPHALIC - Extremities Exam Additional comments: Bilateral Lower Extremity focused Exam VASC: DP 2/4 bilaterally, PT 1/4 bilaterally, CFT less than 3 seconds X 10, TG warm to cool bilaterally, minimal non-pitting edema noted to the dorsal aspect of the right foot, especially the right hallux NEURO: Protective sensation significantly diminished bilaterally DERM: Ulceration present submet 1 R foot, measuring 4.0 cm X 4.5 cm, 100% granular base with fibrotic border, no malodor, no drainage, no tunneling, no probe to bone, no undermining, Hyperkeratotic rim. MSK: patient range of motion within normal limits - Neurological Exam Neurological Exam: Alert, Awake, Oriented x3 - Psychiatric Exam Psychiatric exam: Normal Affect, Normal Mood Assessment and Plan - Assessment and Plan (Free Text) Assessment: 72 y/o male patient with chronic ulceration submetatarsal 1 of the right foot Plan: Patient seen and evaluated Plan discussed with attending Dr. Alvarez Charts, labs and vitals reviewed, Afebrile, No leukocytosis. Extremity US- no DVT Foot X-rays- chronic osteomyelitis suspected 1st digit, no acute findings Lower Extremity MRI- prominent signal changes with decreased T1 signal and increased STIR signal, reticulation and edema noted wihtin the adjacent subq tissue, fluid at the 1st MTPJ, changes noted within the medial sesamoid bone, changes may be the sequelae of acute infectious and inflammatory changes such as acute OM, marked heterotrophic changes noted at the level of the 2nd met bone at the side of fracture deformity with callus formation Wound Cx- Pending HgA1c- 9.8 mg/dL ESR- Pending Wound debrided- 2nd debridement of wound with sterile #10 blade, removed hyperkeratotic, macerated tissue surrounding the wound Wound dressed with wet to dry dressing Continue IV Antibiotics as per ID recommendation by Dr. Ball Podiatry will continue to follow the patient while in-house
[2018-02-05] MEDS: Enoxaparin 40 mg Syringe SC SCH (09:43)
[2018-02-05] MEDS: Insulin Detemir 100 Units/ml Inj SC SCH ×2 (09:44→16:40)
[2018-02-05] MEDS: Insulin Lispro (humaLOG) 100 Units/ml Inj SC SCH ×4 (09:45→23:00)
--- NOTE | 2018-02-05 10:59 | CP.PCM.PN ---
Subjective - Date & Time of Evaluation Date of Evaluation: 02/05/18 Time of Evaluation: 10:00 - Subjective Subjective: No fever no CP no SOB no abd pain denies foot pain Pt states that he woke at at 1 am and felt slight confused - he didnt know where he was at present - oriented x 3 . Objective - Vital Signs/Intake and Output Vital Signs (last 24 hours): Temp Pulse Resp BP Pulse Ox 97.4 F L 56 L 20 129/77 98 02/05/18 08:16 02/05/18 09:47 02/05/18 08:16 02/05/18 09:47 02/05/18 08:16 - Medications Medications: Current Medications Allopurinol (Zyloprim) 300 mg PO DAILY [facility] Last Admin: 02/05/18 09:45 Dose: 300 mg Amlodipine Besylate (Norvasc) 10 mg PO DAILY [facility] Last Admin: 02/05/18 09:47 Dose: 10 mg Aspirin (Aspirin Chewable) 81 mg PO DAILY [facility] Last Admin: 02/05/18 09:44 Dose: 81 mg Atorvastatin Calcium (Lipitor) 10 mg PO DAILY [facility] Last Admin: 02/05/18 09:45 Dose: 10 mg Enoxaparin Sodium (Lovenox) 40 mg SC DAILY [facility] PRN Reason: Protocol Last Admin: 02/05/18 09:43 Dose: 40 mg Finasteride (Proscar) 5 mg PO DAILY [facility] Last Admin: 02/05/18 09:49 Dose: 5 mg Hydralazine HCl (Apresoline) 25 mg PO TID [facility] Last Admin: 02/05/18 09:43 Dose: 25 mg Vancomycin HCl 1 gm/ Sodium (Chloride) 250 mls @ 166.667 mls/hr IVPB Q12 [facility] PRN Reason: Protocol Last Admin: 02/05/18 09:46 Dose: 166.667 mls/hr Piperacillin Sod/Tazobactam (Sod 3.375 gm/ Sodium Chloride) 100 mls @ 100 mls/ hr IVPB Q8 [facility] PRN Reason: Protocol Last Admin: 02/05/18 09:42 Dose: 100 mls/hr Insulin Detemir (Levemir) 50 units SC BID [facility] Last Admin: 02/05/18 09:44 Dose: 50 units Insulin Human Lispro (Humalog) 0 units SC [facility] PRN Reason: Protocol Last Admin: 02/05/18 09:45 Dose: Not Given Lisinopril (Zestril) 20 mg PO BID [facility] Last Admin: 02/05/18 09:46 Dose: 20 mg Pregabalin (Lyrica) 150 mg PO BID [facility] Last Admin: 02/04/18 17:10 Dose: 150 mg Sertraline HCl (Zoloft) 50 mg PO DAILY [facility] Last Admin: 02/05/18 09:46 Dose: 50 mg - Labs Labs: 02/05/18 05:24 02/05/18 05:24 - Constitutional Appears: No Acute Distress - Head Exam Head Exam: NORMAL INSPECTION, NORMOCEPHALIC - Eye Exam Eye Exam: EOMI, Normal appearance Pupil Exam: NORMAL ACCOMODATION - ENT Exam ENT Exam: Mucous Membranes Moist, Normal External Ear Exam - Neck Exam Neck Exam: Full ROM. absent: Meningismus - Respiratory Exam Respiratory Exam: NORMAL BREATHING PATTERN. absent: Respiratory Distress - Cardiovascular Exam Cardiovascular Exam: REGULAR RHYTHM, +S1, +S2 - GI/Abdominal Exam GI & Abdominal Exam: Soft, Normal Bowel Sounds. absent: Tenderness - Extremities Exam Extremities Exam: Normal Capillary Refill. absent: Calf Tenderness Additional comments: right foot with dressing - Back Exam Back Exam: Full ROM. absent: CVA tenderness (L), CVA tenderness (R) - Neurological Exam Neurological Exam: Alert, Awake, Oriented x3 - Psychiatric Exam Psychiatric exam: Normal Affect, Normal Mood - Skin Skin Exam: Dry, Normal Color, Warm Assessment and Plan - Assessment and Plan (Free Text) Assessment: 72 years old male with hx of DM, chronic non healing right great toe ulcer, CKD ,come comes with fever and chills and mild dizziness. No coughing, nausea, vomits. MRI of the Foot : Prominent osseous deformity noted at the level of the 1st proximal phalanx extending to the level of the mid 1st metatarsal head as well as the base of the 1st distal phalanx. At this level, there is prominent signal changes with decreased T1 signal and increased STIR signal. Prominent reticulation and edema is noted within the adjacent subcutaneous soft tissues. Fluid at the 1st MTP joint space. Signal change also noted within the medial sesamoid bone with decreased T1 signal and increased STIR signal. These changes may be the sequelae of acute infectious and or inflammatory changes such as acute osteomyelitis. In the setting of postsurgical changes this may represent superimposed acute infectious changes on the postsurgical changes. Given the extent of the signal abnormality within the 1st proximal phalanx underlying osteonecrosis cannot be excluded. Clinical correlation. 1. Acute Cellulitis, right foot Pt has a chronic non healing ulcer at the right great toe - came in with fever 102.8 and leukocytosis - most likely secondary to acute on chronic infection great toe: likely cellulitis - s/p Debridement - Consulted Dr Ball ID - rec to cont IV Vanco and Zosyn x 2 more days then switch to PO abx for 2-3 more weeks - Podiatry Consulted- following pt - as per DR Alvarez - no acute OM - ECHO : no vegetation - Wound Gram Stain : few Gram neg rds and few Gram + cocci -Blood c/s : neg so far - leukocytosis resolved, fever resolved - Doppler US of LE : neg 2. Dehydration - gentle IV fluid hydration 3. DM II with hyperglycemia - cont Levemir 50 u BID - Lispro sliding scale according to accucheck - InS3e=7.8 4. HTN cont Norvasc, Lisinopril, Hydralazine DVT prophylaxis with Lovenox
--- NOTE | 2018-02-05 11:15 | PQF ---
PROVIDER RESPONSE TEXT: Patient is type II DM. REVIEWER QUERY TEXT: Conflicting Documentation Clarification Please clarify the diagnosis: DM Type 1 versus DM Type 2 -- Other, please specify H and P: documentation includes: ENDOCRINE/METABOLIC Hx Diabetes Mellitus Type 1: Yes Assessment includes: #. DM II with hyperglycemia The patient's Clinical Indicators include: xxxxx Query created by: Le Aleman on 02/04/2018 12:21 PM PROVIDER RESPONSE TEXT: Patient did meet sepsis criteria on admission, secondary to cellulitis. REVIEWER QUERY TEXT: Symptom Underlying Cause Please document any additional diagnosis causing the patient?s documented symptom(s) of Temp: 101.7->102.8->101.2-> 100.8 Pulse; 91 ->86 WBC:13.8->10.6->7.8; with left shift OR: Disagree 02/02: blood culture x 2 : prelim: no growth after 24 hrs H and P; H and P: hx. of DM, chronic non healing right great toe ulcer, CKD with Cardio Catheterizati on done on 01/29/18 through the left radial artery approach. 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 02/03 Hospitalist/Attending progress note includes:Acute on Chronic Cellulitis, concern for Osteomyelit is? Fever etiology unclear in patient who recently had a cardiac cath but also has a chronic non healing ulcer at the right great toe - most likely secondary to acute on chronic infection great toe: cellulitis co ncern for osteomyelitis? 02/03 Podiatry note includes : consulted upon for a chronic ulceration to submetatarsal 1 of the right foot. --debridement of the necrotic roof, removed devitalized tissue; wound culture 02/04 ID progress note includes: Right toe ulcer most likely the source of infection and fever. blood c x- neg x 2 wound cx- pending Plan- : advise to continue with IV vanco and add zosyn since he is diabetic pending further results; if pt. can have MRI ( in light of prosthetic knee) To get MRI of the right toe and r/o OM; if he can' t get MRI then advise to get Bone scan to rule out OM IVF'S, IVAB'S The patient's Clinical Indicators include: xxx Query created by: Le Aleman on 02/04/2018 2:09 PM Electronically signed by: Nichole Taylor MD 02/05/2018 11:13 AM
--- NOTE | 2018-02-05 12:25 | CP.PCM.PN ---
Subjective - Date & Time of Evaluation Date of Evaluation: 02/05/18 Time of Evaluation: 12:25 - Subjective Subjective: ID Note- Pt. seen and examined today . pt. states he feels better. he denies any fever or chills. pt. s/p second bedside local toe ulcer debridement by podiatry team. case d/w his financial analysis advisor at length and as per pt's MRI and XRAy of foot report unchanged from his previous readings and no indication of acute OM as per . Objective - Vital Signs/Intake and Output Vital Signs (last 24 hours): Temp Pulse Resp BP Pulse Ox 97.4 F L 56 L 20 129/77 98 02/05/18 08:16 02/05/18 09:47 02/05/18 08:16 02/05/18 09:47 02/05/18 08:16 - Medications Medications: Current Medications Allopurinol (Zyloprim) 300 mg PO DAILY [facility] Last Admin: 02/05/18 09:45 Dose: 300 mg Amlodipine Besylate (Norvasc) 10 mg PO DAILY [facility] Last Admin: 02/05/18 09:47 Dose: 10 mg Aspirin (Aspirin Chewable) 81 mg PO DAILY [facility] Last Admin: 02/05/18 09:44 Dose: 81 mg Atorvastatin Calcium (Lipitor) 10 mg PO DAILY [facility] Last Admin: 02/05/18 09:45 Dose: 10 mg Enoxaparin Sodium (Lovenox) 40 mg SC DAILY [facility] PRN Reason: Protocol Last Admin: 02/05/18 09:43 Dose: 40 mg Finasteride (Proscar) 5 mg PO DAILY [facility] Last Admin: 02/05/18 09:49 Dose: 5 mg Hydralazine HCl (Apresoline) 25 mg PO TID [facility] Last Admin: 02/05/18 09:43 Dose: 25 mg Vancomycin HCl 1 gm/ Sodium (Chloride) 250 mls @ 166.667 mls/hr IVPB Q12 [facility] PRN Reason: Protocol Last Admin: 02/05/18 09:46 Dose: 166.667 mls/hr Piperacillin Sod/Tazobactam (Sod 3.375 gm/ Sodium Chloride) 100 mls @ 100 mls/ hr IVPB Q8 [facility] PRN Reason: Protocol Last Admin: 07/06/18 09:42 Dose: 100 mls/hr Insulin Detemir (Levemir) 50 units SC BID [facility] Last Admin: 02/05/18 09:44 Dose: 50 units Insulin Human Lispro (Humalog) 0 units SC [facility] PRN Reason: Protocol Last Admin: 02/05/18 09:45 Dose: Not Given Lisinopril (Zestril) 20 mg PO BID [facility] Last Admin: 02/05/18 09:46 Dose: 20 mg Pregabalin (Lyrica) 150 mg PO BID [facility] Last Admin: 02/04/18 17:10 Dose: 150 mg Sertraline HCl (Zoloft) 50 mg PO DAILY [facility] Last Admin: 02/05/18 09:46 Dose: 50 mg - Labs Labs: - Additional Findings Additional findings: - Constitutional Appears: No Acute Distress - Head Exam Head Exam: ATRAUMATIC - Eye Exam Eye Exam: EOMI - ENT Exam ENT Exam: Normal Oropharynx - Neck Exam Neck exam: Positive for: Full Rom - Respiratory Exam Respiratory Exam: Clear to Auscultation Bilateral, NORMAL BREATHING PATTERN - Cardiovascular Exam Cardiovascular Exam: RRR, +S1, +S2 - GI/Abdominal Exam GI & Abdominal Exam: Normal Bowel Sounds, Soft Additional comments: NT, ND - Extremities Exam Additional comments: right foot erythema much decreased, edema is resolved. right great toe plantar ulcer necrotic crust removed by podiatry and has scant yellow discharge, malodor no longer present left foot no erythema, no ulcers right knee prosthetic joint surgical site clean/dry/intact - Neurological Exam Neurological exam: Alert, Oriented x 3 Laboratory Results - last 72 hr 02/02/18 02/02/18 02/02/18 19:40 20:00 21:48 WBC 13.8 H D RBC 5.31 Hgb 14.3 Hct 43.6 MCV 82.2 D MCH 27.0 MCHC 32.8 L RDW 17.0 H Plt Count 149 MPV 9.2 Neut % (Auto) 83.4 H Lymph % (Auto) 8.2 L [place] % (Auto) 7.6 Eos % (Auto) 0.4 Baso % (Auto) 0.4 Neut # (Auto) 11.6 H Lymph # (Auto) 1.1 [place] # (Auto) 1.0 H Eos # (Auto) 0.1 Baso # (Auto) 0.1 Neutrophils % (Manual) 79 H Band Neutrophils % 4 H Lymphocytes % (Manual) 6 L Reactive Lymphs % 8 H Monocytes % (Manual) 2 Eosinophils % (Manual) 1 Platelet Estimate Normal Poikilocytosis (manual Slight Anisocytosis (manual) Slight Ovalocytes Slight ESR pO2 VBG pH VBG pCO2 VBG HCO3 VBG Total CO2 VBG O2 Sat (Calc) VBG Base Excess VBG Potassium Glucose Lactate FiO2 Sodium Potassium Chloride Carbon Dioxide Anion Gap BUN Creatinine Est GFR ( Amer) Est GFR (Non-Af Amer) POC Glucose (mg/dL) 293 H 248 H Random Glucose Hemoglobin A1c Calcium Total Bilirubin AST ALT Alkaline Phosphatase Troponin I Total Protein Albumin Globulin Albumin/Globulin Ratio Venous Blood Potassium Urine Color Urine Clarity Urine pH Ur Specific [place] Urine Protein Urine Glucose (UA) Urine Ketones Urine Blood Urine Nitrate Urine Bilirubin Urine Urobilinogen Ur Leukocyte Esterase Urine RBC (Auto) Urine Microscopic WBC Ur Squamous Epith Cells Vancomycin Trough 02/02/18 02/02/18 02/02/18 21:48 21:48 23:18 WBC RBC Hgb Hct MCV MCH MCHC RDW Plt Count MPV Neut % (Auto) Lymph % (Auto) [place] % (Auto) Eos % (Auto) Baso % (Auto) Neut # (Auto) Lymph # (Auto) [place] # (Auto) Eos # (Auto) Baso # (Auto) Neutrophils % (Manual) Band Neutrophils % Lymphocytes % (Manual) Reactive Lymphs % Monocytes % (Manual) Eosinophils % (Manual) Platelet Estimate Poikilocytosis (manual Anisocytosis (manual) Ovalocytes ESR pO2 41 VBG pH 7.48 H VBG pCO2 33 L VBG HCO3 25.7 VBG Total CO2 25.6 VBG O2 Sat (Calc) 88.1 H VBG Base Excess 1.6 VBG Potassium 3.5 L Glucose 111 H Lactate 1.3 FiO2 21.0 Sodium 137 135.0 Potassium 3.8 Chloride 100 102.0 Carbon Dioxide 26 Anion Gap 15 BUN 23 H Creatinine 1.2 Est GFR ( Amer) > 60 Est GFR (Non-Af Amer) 59 POC Glucose (mg/dL) Random Glucose 158 H Hemoglobin A1c Calcium 9.7 Total Bilirubin 1.1 AST 16 L ALT 21 Alkaline Phosphatase 85 Troponin I 0.0450 Total Protein 7.5 Albumin 4.3 Globulin 3.2 Albumin/Globulin Ratio 1.4 Venous Blood Potassium 3.5 L Urine Color Yellow Urine Clarity Slighty-cloudy Urine pH 5.0 Ur Specific [place] 1.015 Urine Protein >=500 Urine Glucose (UA) >=500 Urine Ketones Negative Urine Blood Small Urine Nitrate Negative Urine Bilirubin Negative Urine Urobilinogen 0.2-1.0 Ur Leukocyte Esterase Neg Urine RBC (Auto) 4 H Urine Microscopic WBC < 1 Ur Squamous Epith Cells < 1 Vancomycin Trough 02/03/18 02/03/18 02/03/18 00:57 04:20 04:20 WBC 10.6 RBC 4.62 Hgb 12.7 Hct 38.6 MCV 83.5 MCH 27.5 MCHC 33.0 RDW 16.8 H Plt Count 128 L D MPV 9.2 Neut % (Auto) 77.4 H Lymph % (Auto) 12.4 L [place] % (Auto) 9.4 Eos % (Auto) 0.4 Baso % (Auto) 0.4 Neut # (Auto) 8.2 H Lymph # (Auto) 1.3 [place] # (Auto) 1.0 H Eos # (Auto) 0.0 Baso # (Auto) 0.0 Neutrophils % (Manual) Band Neutrophils % Lymphocytes % (Manual) Reactive Lymphs % Monocytes % (Manual) Eosinophils % (Manual) Platelet Estimate Poikilocytosis (manual Anisocytosis (manual) Ovalocytes ESR pO2 VBG pH VBG pCO2 VBG HCO3 VBG Total CO2 VBG O2 Sat (Calc) VBG Base Excess VBG Potassium Glucose Lactate FiO2 Sodium 139 Potassium 3.4 L Chloride 106 Carbon Dioxide 25 Anion Gap 11 BUN 20 Creatinine 1.1 Est GFR ( Amer) > 60 Est GFR (Non-Af Amer) > 60 POC Glucose (mg/dL) 119 H Random Glucose 165 H Hemoglobin A1c Calcium 8.6 Total Bilirubin AST ALT Alkaline Phosphatase Troponin I Total Protein Albumin Globulin Albumin/Globulin Ratio Venous Blood Potassium Urine Color Urine Clarity Urine pH Ur Specific [place] Urine Protein Urine Glucose (UA) Urine Ketones Urine Blood Urine Nitrate Urine Bilirubin Urine Urobilinogen Ur Leukocyte Esterase Urine RBC (Auto) Urine Microscopic WBC Ur Squamous Epith Cells Vancomycin Trough 02/03/18 02/03/18 02/03/18 05:06 11:34 11:37 WBC RBC Hgb Hct MCV MCH MCHC RDW Plt Count MPV Neut % (Auto) Lymph % (Auto) [place] % (Auto) Eos % (Auto) Baso % (Auto) Neut # (Auto) Lymph # (Auto) [place] # (Auto) Eos # (Auto) Baso # (Auto) Neutrophils % (Manual) Band Neutrophils % Lymphocytes % (Manual) Reactive Lymphs % Monocytes % (Manual) Eosinophils % (Manual) Platelet Estimate Poikilocytosis (manual Anisocytosis (manual) Ovalocytes ESR 9 pO2 VBG pH VBG pCO2 VBG HCO3 VBG Total CO2 VBG O2 Sat (Calc) VBG Base Excess VBG Potassium Glucose Lactate FiO2 Sodium Potassium Chloride Carbon Dioxide Anion Gap BUN Creatinine Est GFR ( Amer) Est GFR (Non-Af Amer) POC Glucose (mg/dL) 152 H 169 H Random Glucose Hemoglobin A1c Calcium Total Bilirubin AST ALT Alkaline Phosphatase Troponin I Total Protein Albumin Globulin Albumin/Globulin Ratio Venous Blood Potassium Urine Color Urine Clarity Urine pH Ur Specific [place] Urine Protein Urine Glucose (UA) Urine Ketones Urine Blood Urine Nitrate Urine Bilirubin Urine Urobilinogen Ur Leukocyte Esterase Urine RBC (Auto) Urine Microscopic WBC Ur Squamous Epith Cells Vancomycin Trough 02/03/18 02/03/18 02/03/18 16:37 21:00 21:43 WBC RBC Hgb Hct MCV MCH MCHC RDW Plt Count MPV Neut % (Auto) Lymph % (Auto) [place] % (Auto) Eos % (Auto) Baso % (Auto) Neut # (Auto) Lymph # (Auto) [place] # (Auto) Eos # (Auto) Baso # (Auto) Neutrophils % (Manual) Band Neutrophils % Lymphocytes % (Manual) Reactive Lymphs % Monocytes % (Manual) Eosinophils % (Manual) Platelet Estimate Poikilocytosis (manual Anisocytosis (manual) Ovalocytes ESR pO2 VBG pH VBG pCO2 VBG HCO3 VBG Total CO2 VBG O2 Sat (Calc) VBG Base Excess VBG Potassium Glucose Lactate FiO2 Sodium Potassium Chloride Carbon Dioxide Anion Gap BUN Creatinine Est GFR ( Amer) Est GFR (Non-Af Amer) POC Glucose (mg/dL) 137 H 74 Random Glucose Hemoglobin A1c Calcium Total Bilirubin AST ALT Alkaline Phosphatase Troponin I Total Protein Albumin Globulin Albumin/Globulin Ratio Venous Blood Potassium Urine Color Urine Clarity Urine pH Ur Specific [place] Urine Protein Urine Glucose (UA) Urine Ketones Urine Blood Urine Nitrate Urine Bilirubin Urine Urobilinogen Ur Leukocyte Esterase Urine RBC (Auto) Urine Microscopic WBC Ur Squamous Epith Cells Vancomycin Trough 10.1 H 02/03/18 02/04/18 02/04/18 23:13 00:40 05:00 WBC RBC Hgb Hct MCV MCH MCHC RDW Plt Count MPV Neut % (Auto) Lymph % (Auto) [place] % (Auto) Eos % (Auto) Baso % (Auto) Neut # (Auto) Lymph # (Auto) [place] # (Auto) Eos # (Auto) Baso # (Auto) Neutrophils % (Manual) Band Neutrophils % Lymphocytes % (Manual) Reactive Lymphs % Monocytes % (Manual) Eosinophils % (Manual) Platelet Estimate Poikilocytosis (manual Anisocytosis (manual) Ovalocytes ESR pO2 VBG pH VBG pCO2 VBG HCO3 VBG Total CO2 VBG O2 Sat (Calc) VBG Base Excess VBG Potassium Glucose Lactate FiO2 Sodium Potassium Chloride Carbon Dioxide Anion Gap BUN Creatinine Est GFR ( Amer) Est GFR (Non-Af Amer) POC Glucose (mg/dL) 121 H 156 H Random Glucose Hemoglobin A1c 9.8 H Calcium Total Bilirubin AST ALT Alkaline Phosphatase Troponin I Total Protein Albumin Globulin Albumin/Globulin Ratio Venous Blood Potassium Urine Color Urine Clarity Urine pH Ur Specific [place] Urine Protein Urine Glucose (UA) Urine Ketones Urine Blood Urine Nitrate Urine Bilirubin Urine Urobilinogen Ur Leukocyte Esterase Urine RBC (Auto) Urine Microscopic WBC Ur Squamous Epith Cells Vancomycin Trough 02/04/18 02/04/18 02/04/18 05:00 05:00 05:25 WBC 7.8 RBC 5.12 Hgb 14.2 Hct 42.5 MCV 82.9 MCH 27.8 MCHC 33.5 RDW 16.8 H Plt Count 135 MPV Neut % (Auto) Lymph % (Auto) [place] % (Auto) Eos % (Auto) Baso % (Auto) Neut # (Auto) Lymph # (Auto) [place] # (Auto) Eos # (Auto) Baso # (Auto) Neutrophils % (Manual) Band Neutrophils % Lymphocytes % (Manual) Reactive Lymphs % Monocytes % (Manual) Eosinophils % (Manual) Platelet Estimate Poikilocytosis (manual Anisocytosis (manual) Ovalocytes ESR pO2 VBG pH VBG pCO2 VBG HCO3 VBG Total CO2 VBG O2 Sat (Calc) VBG Base Excess VBG Potassium Glucose Lactate FiO2 Sodium 140 Potassium 3.7 Chloride 107 Carbon Dioxide 27 Anion Gap 10 BUN 15 Creatinine 1.0 Est GFR ( Amer) > 60 Est GFR (Non-Af Amer) > 60 POC Glucose (mg/dL) 71 Random Glucose 78 Hemoglobin A1c Calcium 8.7 Total Bilirubin AST ALT Alkaline Phosphatase Troponin I Total Protein Albumin Globulin Albumin/Globulin Ratio Venous Blood Potassium Urine Color Urine Clarity Urine pH Ur Specific [place] Urine Protein Urine Glucose (UA) Urine Ketones Urine Blood Urine Nitrate Urine Bilirubin Urine Urobilinogen Ur Leukocyte Esterase Urine RBC (Auto) Urine Microscopic WBC Ur Squamous Epith Cells Vancomycin Trough 02/04/18 02/04/18 02/04/18 11:03 15:52 16:40 WBC RBC Hgb Hct MCV MCH MCHC RDW Plt Count MPV Neut % (Auto) Lymph % (Auto) [place] % (Auto) Eos % (Auto) Baso % (Auto) Neut # (Auto) Lymph # (Auto) [place] # (Auto) Eos # (Auto) Baso # (Auto) Neutrophils % (Manual) Band Neutrophils % Lymphocytes % (Manual) Reactive Lymphs % Monocytes % (Manual) Eosinophils % (Manual) Platelet Estimate Poikilocytosis (manual Anisocytosis (manual) Ovalocytes ESR 13 pO2 VBG pH VBG pCO2 VBG HCO3 VBG Total CO2 VBG O2 Sat (Calc) VBG Base Excess VBG Potassium Glucose Lactate FiO2 Sodium Potassium Chloride Carbon Dioxide Anion Gap BUN Creatinine Est GFR ( Amer) Est GFR (Non-Af Amer) POC Glucose (mg/dL) 152 H 237 H Random Glucose Hemoglobin A1c Calcium Total Bilirubin AST ALT Alkaline Phosphatase Troponin I Total Protein Albumin Globulin Albumin/Globulin Ratio Venous Blood Potassium Urine Color Urine Clarity Urine pH Ur Specific [place] Urine Protein Urine Glucose (UA) Urine Ketones Urine Blood Urine Nitrate Urine Bilirubin Urine Urobilinogen Ur Leukocyte Esterase Urine RBC (Auto) Urine Microscopic WBC Ur Squamous Epith Cells Vancomycin Trough 02/04/18 02/05/18 02/05/18 21:25 03:06 05:18 WBC RBC Hgb Hct MCV MCH MCHC RDW Plt Count MPV Neut % (Auto) Lymph % (Auto) [place] % (Auto) Eos % (Auto) Baso % (Auto) Neut # (Auto) Lymph # (Auto) [place] # (Auto) Eos # (Auto) Baso # (Auto) Neutrophils % (Manual) Band Neutrophils % Lymphocytes % (Manual) Reactive Lymphs % Monocytes % (Manual) Eosinophils % (Manual) Platelet Estimate Poikilocytosis (manual Anisocytosis (manual) Ovalocytes ESR pO2 VBG pH VBG pCO2 VBG HCO3 VBG Total CO2 VBG O2 Sat (Calc) VBG Base Excess VBG Potassium Glucose Lactate FiO2 Sodium Potassium Chloride Carbon Dioxide Anion Gap BUN Creatinine Est GFR ( Amer) Est GFR (Non-Af Amer) POC Glucose (mg/dL) 148 H 172 H 119 H Random Glucose Hemoglobin A1c Calcium Total Bilirubin AST ALT Alkaline Phosphatase Troponin I Total Protein Albumin Globulin Albumin/Globulin Ratio Venous Blood Potassium Urine Color Urine Clarity Urine pH Ur Specific [place] Urine Protein Urine Glucose (UA) Urine Ketones Urine Blood Urine Nitrate Urine Bilirubin Urine Urobilinogen Ur Leukocyte Esterase Urine RBC (Auto) Urine Microscopic WBC Ur Squamous Epith Cells Vancomycin Trough 02/05/18 02/05/18 02/05/18 05:24 05:24 11:27 WBC 7.6 RBC 4.95 Hgb 13.6 Hct 41.3 MCV 83.4 MCH 27.5 MCHC 32.9 L RDW 16.9 H Plt Count 141 MPV Neut % (Auto) Lymph % (Auto) [place] % (Auto) Eos % (Auto) Baso % (Auto) Neut # (Auto) Lymph # (Auto) [place] # (Auto) Eos # (Auto) Baso # (Auto) Neutrophils % (Manual) Band Neutrophils % Lymphocytes % (Manual) Reactive Lymphs % Monocytes % (Manual) Eosinophils % (Manual) Platelet Estimate Poikilocytosis (manual Anisocytosis (manual) Ovalocytes ESR pO2 VBG pH VBG pCO2 VBG HCO3 VBG Total CO2 VBG O2 Sat (Calc) VBG Base Excess VBG Potassium Glucose Lactate FiO2 Sodium 138 Potassium 4.1 Chloride 105 Carbon Dioxide 23 Anion Gap 14 BUN 16 Creatinine 1.1 Est GFR ( Amer) > 60 Est GFR (Non-Af Amer) > 60 POC Glucose (mg/dL) 116 H Random Glucose 130 H Hemoglobin A1c Calcium 8.7 Total Bilirubin AST ALT Alkaline Phosphatase Troponin I Total Protein Albumin Globulin Albumin/Globulin Ratio Venous Blood Potassium Urine Color Urine Clarity Urine pH Ur Specific [place] Urine Protein Urine Glucose (UA) Urine Ketones Urine Blood Urine Nitrate Urine Bilirubin Urine Urobilinogen Ur Leukocyte Esterase Urine RBC (Auto) Urine Microscopic WBC Ur Squamous Epith Cells Vancomycin Trough Microbiology 02/02/18 21:45 Blood-Venous Blood Culture - Preliminary NO GROWTH AFTER 48 HOURS 02/02/18 22:00 Blood-Venous Blood Culture - Preliminary NO GROWTH AFTER 48 HOURS 02/03/18 10:57 Toe Gram Stain - Final 02/02/18 21:48 Urine,Clean Catch Urine Culture - Final No Growth (<1,000 CFU/ML) Accession No. : [id number] Patient Name / ID : TANESHA BARRIOS / [id number] Exam Date : 02/04/2018 13:52:22 ( Approved ) Study Comment : Sex / Age : M / [id number] Creator : Jack Wen MD Dictator : Jack Wen MD Electronic Equipment Installer : Molding Utility Worker : Jack Wen MD Approver2 : Report Date : 02/04/2018 15:55:14 My Comment : MRI right foot History: Infection. Evaluate for osteomyelitis. Comparison: X-ray dated 02/04/2018 Technique: Multi-echo multiplanar sequences were performed through the right foot without and with the use of intravenous contrast. Findings: Prominent osseous deformity noted at the level of the 1st proximal phalanx extending to the level of the mid 1st metatarsal head as well as the base of the 1st distal phalanx. At this level, there is prominent signal changes with decreased T1 signal and increased STIR signal. Prominent reticulation and edema is noted within the adjacent subcutaneous soft tissues. Fluid at the 1st MTP joint space. Signal change also noted within the medial sesamoid bone with decreased T1 signal and increased STIR signal. These changes may be the sequelae of acute infectious and or inflammatory changes such as acute osteomyelitis. In the setting of postsurgical changes this may represent superimposed acute infectious changes on the postsurgical changes. Given the extent of the signal abnormality within the 1st proximal phalanx underlying osteonecrosis cannot be excluded. Clinical correlation. Degenerative changes noted at the articulation of the 1st metatarsal bone with the medial cuneiform bone with some minimal reactive edema at the 1st metatarsal base. Mild fraying of visualized Lisfranc ligament which may represent a sprain and or partial tear. Marked heterotopic bone formation noted at the level of the 2nd metatarsal bone at the site of the fracture deformity with prominent new bone and callus formation noted. Prominent signal changes noted at the articulation of the 3rd proximal phalanx and metatarsal head with decreased T1 signal and increased STIR signal. This may represent the sequelae of an underlying bone infraction with articular surface and or subchondral surface collapse at the 3rd metatarsal head. Additional considerations may be the sequelae of acute infectious and or inflammatory changes versus degenerative change. Mild minimal nonspecific reactive edema at the lateral head of the 5th metatarsal bone. Degenerative changes noted at the dorsal aspect of the talonavicular joint space with some bony hypertrophy and reactive edema noted within the anterior talus. Failure of fat suppression on the coronal and short axis sequences, markedly limits evaluation. Impression: 1. Prominent osseous deformity noted at the level of the 1st proximal phalanx extending to the level of the mid 1st metatarsal head as well as the base of the 1st distal phalanx. At this level, there is prominent signal changes with decreased T1 signal and increased STIR signal. Prominent reticulation and edema is noted within the adjacent subcutaneous soft tissues. Fluid at the 1st MTP joint space. Signal change also noted within the medial sesamoid bone with decreased T1 signal and increased STIR signal. These changes may be the sequelae of acute infectious and or inflammatory changes such as acute osteomyelitis. In the setting of postsurgical changes this may represent superimposed acute infectious changes on the postsurgical changes. Given the extent of the signal abnormality within the 1st proximal phalanx underlying osteonecrosis cannot be excluded. Clinical correlation. 2. Degenerative changes noted at the articulation of the 1st metatarsal bone with the medial cuneiform bone with some minimal reactive edema at the 1st metatarsal base. 3. Mild fraying of visualized Lisfranc ligament which may represent a sprain and or partial tear. 4. Marked heterotopic bone formation noted at the level of the 2nd metatarsal bone at the site of the fracture deformity with prominent new bone and callus formation noted. 5. Prominent signal changes noted at the articulation of the 3rd proximal phalanx and metatarsal head with decreased T1 signal and increased STIR signal. This may represent the sequelae of an underlying bone infraction with articular surface and or subchondral surface collapse at the 3rd metatarsal head. Additional considerations may be the sequelae of acute infectious and or inflammatory changes versus degenerative change. 6. Mild minimal nonspecific reactive edema at the lateral head of the 5th metatarsal bone. 7. Degenerative changes noted at the dorsal aspect of the talonavicular joint space with some bony hypertrophy and reactive edema noted within the anterior talus. 8. Failure of fat suppression on the coronal and short axis sequences, markedly limits evaluation. 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 pt. clinically much better. remains afebrile past 48 hours. leukocytosis - resolved UA- neg cxr- negative as per report. LE doplers- No DVt as per report blood cx- neg x 2 wound cx- pending ESR- 13 (normal) plan- advise to continue with IV vanco and add zosyn since he is diabetic pending further results. day #3 Keep vanco trough <15. low ESR case d/w pt's financial analysis advisor at length and per him no indication of OM , hence advise 2 more days of IV antibiotics and then pt. can be d/c home on oral antibiotics for another 2-3 weeks and close f/u with his financial analysis advisor for the toe ulcer. All above d/w patient at length and he verbalizes full understanding of all above and agrees with above plan of care.
--- NOTE | 2018-02-05 18:18 | CP.PCM.CON ---
History of Present Illness - History of Present Illness History of Present Illness: Consultation for cardiac evaluation and PVD s/p peripheral angiogram at [facility] HPI: Review of Systems - Review of Systems Systems not reviewed;Unavailable: Acuity of Condition - Constitutional Constitutional: As Per HPI - EENT Eyes: As Per HPI Ears: As Per HPI Nose/Mouth/Throat: As Per HPI - Cardiovascular Cardiovascular: As Per HPI - Respiratory Respiratory: As Per HPI - Gastrointestinal Gastrointestinal: As Per HPI - Genitourinary Genitourinary: As Per HPI - Reproductive: Male Reproductive:Male: As Per HPI - Musculoskeletal Musculoskeletal: As Per HPI - Integumentary Integumentary: As Per HPI - Neurological Neurological: As Per HPI - Psychiatric Psychiatric: As Per HPI - Endocrine Endocrine: As Per HPI - Hematologic/Lymphatic Hematologic: As Per HPI Past Patient History - Past Medical History & Family History Past Medical History?: Yes - Past Social History Alcohol: None Drugs: Denies - CARDIAC Hx Hypercholesterolemia: Yes Hx Hypertension: Yes - NEUROLOGICAL Hx Neurological Disorder: Yes Other/Comment: NUMBNESS FEET - HEENT Hx Cataracts: Yes Other/Comment: RETINA(LASER [place]) - RENAL Hx Chronic Kidney Disease: Yes Hx Kidney Stones: Yes - ENDOCRINE/METABOLIC Hx Endocrine Disorders: Yes Hx Diabetes Mellitus Type 2: Yes - HEMATOLOGICAL/ONCOLOGICAL Hx Blood Disorders: No - INTEGUMENTARY Hx Dermatological Problems: No Other/Comment: DIABETIC ULCER - MUSCULOSKELETAL/RHEUMATOLOGICAL Hx Arthritis: Yes - GASTROINTESTINAL Hx Gastrointestinal Disorders: No - GENITOURINARY/GYNECOLOGICAL Hx Prostate Problems: Yes Other/Comment: BPH-ENLARGE PROSTATE - PSYCHIATRIC Hx Depression: Yes - SURGICAL HISTORY Hx Surgeries: Yes Hx Cataract Extraction: Yes Hx Cardiac Catheterization: Yes (January 2018) Hx Joint Replacement: Yes Hx Orthopedic Surgery: Yes (Right TKR) Other/Comment: RIGHT TOTAL KNEE ARTHROPLASTY/RIGHT NEPHRECTOMY - ANESTHESIA Hx Anesthesia: Yes Hx Anesthesia Reactions: No Hx Malignant Hyperthermia: No Meds Allergies/Adverse Reactions: Allergies Allergy/AdvReac Type Severity Reaction Status Date / Time No Known Allergies Allergy Verified 02/02/18 19:39 - Medications Medications: Current Medications Allopurinol (Zyloprim) 300 mg PO DAILY [facility] Last Admin: 02/05/18 09:45 Dose: 300 mg Amlodipine Besylate (Norvasc) 10 mg PO DAILY [facility] Last Admin: 02/05/18 09:47 Dose: 10 mg Aspirin (Aspirin Chewable) 81 mg PO DAILY [facility] Last Admin: 02/05/18 09:44 Dose: 81 mg Atorvastatin Calcium (Lipitor) 10 mg PO DAILY [facility] Last Admin: 02/05/18 09:45 Dose: 10 mg Enoxaparin Sodium (Lovenox) 40 mg SC DAILY [facility] PRN Reason: Protocol Last Admin: 02/05/18 09:43 Dose: 40 mg Finasteride (Proscar) 5 mg PO DAILY [facility] Last Admin: 02/05/18 09:49 Dose: 5 mg Hydralazine HCl (Apresoline) 25 mg PO TID [facility] Last Admin: 02/05/18 16:39 Dose: 25 mg Vancomycin HCl 1 gm/ Sodium (Chloride) 250 mls @ 166.667 mls/hr IVPB Q12 [facility] PRN Reason: Protocol Last Admin: 02/05/18 09:46 Dose: 166.667 mls/hr Piperacillin Sod/Tazobactam (Sod 3.375 gm/ Sodium Chloride) 100 mls @ 100 mls/ hr IVPB Q8 [facility] PRN Reason: Protocol Last Admin: 02/05/18 16:44 Dose: 100 mls/hr Insulin Detemir (Levemir) 50 units SC BID [facility] Last Admin: 02/05/18 09:44 Dose: 50 units Insulin Human Lispro (Humalog) 0 units SC ACHS [facility] PRN Reason: Protocol Last Admin: 02/05/18 16:40 Dose: 2 u Lisinopril (Zestril) 20 mg PO BID [facility] Last Admin: 02/05/18 16:41 Dose: 20 mg Pregabalin (Lyrica) 150 mg PO BID [facility] Last Admin: 02/05/18 16:43 Dose: 150 mg Sertraline HCl (Zoloft) 50 mg PO DAILY [facility] Last Admin: 02/05/18 09:46 Dose: 50 mg Physical Exam - Constitutional Appears: Well - Head Exam Head Exam: ATRAUMATIC, NORMAL INSPECTION, NORMOCEPHALIC - Eye Exam Eye Exam: EOMI, Normal appearance, PERRL Pupil Exam: NORMAL ACCOMODATION, PERRL - ENT Exam ENT Exam: Mucous Membranes Moist, Normal Exam - Neck Exam Neck exam: Positive for: Normal Inspection - Respiratory Exam Respiratory Exam: Clear to Auscultation Bilateral, NORMAL BREATHING PATTERN - Cardiovascular Exam Cardiovascular Exam: REGULAR RHYTHM, +S1, +S2, Systolic Murmur - GI/Abdominal Exam GI & Abdominal Exam: Normal Bowel Sounds, Soft. absent: Tenderness - Extremities Exam Extremities exam: Positive for: normal inspection - Back Exam Back exam: NORMAL INSPECTION - Neurological Exam Neurological exam: Alert, CN II-XII Intact, Normal Gait, Oriented x3, Reflexes Normal - Psychiatric Exam Psychiatric exam: Normal Affect, Normal Mood - Skin Skin Exam: Dry, Intact, Normal Color, Warm Results - Vital Signs Recent Vital Signs: Last Vital Signs Temp 97.6 F 02/05/18 16:19 Pulse 56 L 02/05/18 16:41 Resp 18 02/05/18 16:19 BP 157/62 H 02/05/18 16:41 Pulse Ox 98 02/05/18 16:19 - Labs Result Diagrams: 02/05/18 05:24 02/05/18 05:24 Labs: Laboratory Results - last 24 hr 02/04/18 02/04/18 02/05/18 16:40 21:25 03:06 WBC RBC Hgb Hct MCV MCH MCHC RDW Plt Count ESR 13 Sodium Potassium Chloride Carbon Dioxide Anion Gap BUN Creatinine Est GFR ( Amer) Est GFR (Non-Af Amer) POC Glucose (mg/dL) 148 H 172 H Random Glucose Calcium 02/05/18 02/05/18 02/05/18 05:18 05:24 05:24 WBC 7.6 RBC 4.95 Hgb 13.6 Hct 41.3 MCV 83.4 MCH 27.5 MCHC 32.9 L RDW 16.9 H Plt Count 141 ESR Sodium 138 Potassium 4.1 Chloride 105 Carbon Dioxide 23 Anion Gap 14 BUN 16 Creatinine 1.1 Est GFR ( Amer) > 60 Est GFR (Non-Af Amer) > 60 POC Glucose (mg/dL) 119 H Random Glucose 130 H Calcium 8.7 02/05/18 02/05/18 11:27 16:03 WBC RBC Hgb Hct MCV MCH MCHC RDW Plt Count ESR Sodium Potassium Chloride Carbon Dioxide Anion Gap BUN Creatinine Est GFR ( Amer) Est GFR (Non-Af Amer) POC Glucose (mg/dL) 116 H 172 H Random Glucose Calcium Assessment & Plan (1) PVD (peripheral vascular disease) Status: Acute (2) CAD (coronary artery disease) Status: Acute (3) HTN (hypertension) Status: Acute (4) Fever in adult Status: Acute (5) Foot ulcer Status: Acute
--- NOTE | 2018-02-05 18:19 | CP.PCM.PN ---
Subjective - Date & Time of Evaluation Date of Evaluation: 02/05/18 Time of Evaluation: 18:19 - Subjective Subjective: stable ambulating Objective - Vital Signs/Intake and Output Vital Signs (last 24 hours): Temp Pulse Resp BP Pulse Ox 97.6 F 56 L 18 157/62 H 98 02/05/18 16:19 02/05/18 16:41 02/05/18 16:19 02/05/18 16:41 02/05/18 16:19 - Medications Medications: Current Medications Allopurinol (Zyloprim) 300 mg PO DAILY [facility] Last Admin: 02/05/18 09:45 Dose: 300 mg Amlodipine Besylate (Norvasc) 10 mg PO DAILY [facility] Last Admin: 02/05/18 09:47 Dose: 10 mg Aspirin (Aspirin Chewable) 81 mg PO DAILY [facility] Last Admin: 02/05/18 09:44 Dose: 81 mg Atorvastatin Calcium (Lipitor) 10 mg PO DAILY [facility] Last Admin: 02/05/18 09:45 Dose: 10 mg Enoxaparin Sodium (Lovenox) 40 mg SC DAILY [facility] PRN Reason: Protocol Last Admin: 02/05/18 09:43 Dose: 40 mg Finasteride (Proscar) 5 mg PO DAILY [facility] Last Admin: 02/05/18 09:49 Dose: 5 mg Hydralazine HCl (Apresoline) 25 mg PO TID [facility] Last Admin: 02/05/18 16:39 Dose: 25 mg Vancomycin HCl 1 gm/ Sodium (Chloride) 250 mls @ 166.667 mls/hr IVPB Q12 [facility] PRN Reason: Protocol Last Admin: 02/05/18 09:46 Dose: 166.667 mls/hr Piperacillin Sod/Tazobactam (Sod 3.375 gm/ Sodium Chloride) 100 mls @ 100 mls/ hr IVPB Q8 [facility] PRN Reason: Protocol Last Admin: 02/05/18 16:44 Dose: 100 mls/hr Insulin Detemir (Levemir) 50 units SC BID [facility] Last Admin: 02/05/18 09:44 Dose: 50 units Insulin Human Lispro (Humalog) 0 units SC ACHS [facility] PRN Reason: Protocol Last Admin: 02/05/18 16:40 Dose: 2 u Lisinopril (Zestril) 20 mg PO BID [facility] Last Admin: 02/05/18 16:41 Dose: 20 mg Pregabalin (Lyrica) 150 mg PO BID [facility] Last Admin: 02/05/18 16:43 Dose: 150 mg Sertraline HCl (Zoloft) 50 mg PO DAILY [facility] Last Admin: 02/05/18 09:46 Dose: 50 mg - Labs Labs: 02/05/18 05:24 02/05/18 05:24 - Constitutional Appears: Well - Head Exam Head Exam: ATRAUMATIC, NORMAL INSPECTION, NORMOCEPHALIC - Eye Exam Eye Exam: EOMI, Normal appearance, PERRL Pupil Exam: NORMAL ACCOMODATION, PERRL - ENT Exam ENT Exam: Mucous Membranes Moist, Normal Exam - Neck Exam Neck Exam: Full ROM, Normal Inspection. absent: Lymphadenopathy - Respiratory Exam Respiratory Exam: Clear to Ausculation Bilateral, NORMAL BREATHING PATTERN - Cardiovascular Exam Cardiovascular Exam: REGULAR RHYTHM, +S1, +S2. absent: Murmur - GI/Abdominal Exam GI & Abdominal Exam: Soft, Normal Bowel Sounds. absent: Tenderness - Extremities Exam Extremities Exam: Full ROM, Normal Capillary Refill, Normal Inspection. absent : Joint Swelling, Pedal Edema - Back Exam Back Exam: NORMAL INSPECTION - Neurological Exam Neurological Exam: Alert, Awake, CN II-XII Intact, Normal Gait, Oriented x3 - Psychiatric Exam Psychiatric exam: Normal Affect, Normal Mood - Skin Skin Exam: Dry, Intact, Normal Color, Warm Assessment and Plan (1) PVD (peripheral vascular disease) Status: Acute (2) CAD (coronary artery disease) Status: Acute (3) HTN (hypertension) Status: Acute (4) Fever in adult Status: Acute (5) Foot ulcer Status: Acute
[2018-02-06] MEDS: Piperacillin/Tazobact 3.375 GM in Sodium Chloride 0.9% 100 ML IVPB SCH ×3 (01:42→16:17)
[2018-02-06 06:21] LABS: BLOOD UREA NITROGEN 13 mg/dl (9-20); CALCIUM 8.7 mg/dL (8.4-10.2); GFR AFRICAN-AMERICAN > 60; GFR NON-AFRICAN AMERICAN 59
[2018-02-06] MEDS: Insulin Detemir 100 Units/ml Inj SC SCH ×2 (08:52→16:14)
[2018-02-06] MEDS: Enoxaparin 40 mg Syringe SC SCH (08:52)
--- NOTE | 2018-02-06 10:41 | CP.PCM.PN ---
Subjective - Date & Time of Evaluation Date of Evaluation: 02/06/18 Time of Evaluation: 10:41 - Subjective Subjective: ID Note- Pt. seen and examined today with his at his bedside. Patient is in good spirits and states he feels well. denies any chills. Objective - Vital Signs/Intake and Output Vital Signs (last 24 hours): Temp Pulse Resp BP Pulse Ox 97.4 F L 54 L 20 151/81 H 97 02/06/18 08:00 02/06/18 08:53 02/06/18 08:00 02/06/18 08:53 02/06/18 08:00 - Medications Medications: Current Medications Allopurinol (Zyloprim) 300 mg PO DAILY [facility] Last Admin: 02/06/18 08:53 Dose: 300 mg Amlodipine Besylate (Norvasc) 10 mg PO DAILY [facility] Last Admin: 02/06/18 08:53 Dose: 10 mg Aspirin (Aspirin Chewable) 81 mg PO DAILY [facility] Last Admin: 02/06/18 08:52 Dose: 81 mg Atorvastatin Calcium (Lipitor) 10 mg PO DAILY [facility] Last Admin: 02/06/18 08:52 Dose: 10 mg Enoxaparin Sodium (Lovenox) 40 mg SC DAILY [facility] PRN Reason: Protocol Last Admin: 02/06/18 08:52 Dose: 40 mg Finasteride (Proscar) 5 mg PO DAILY [facility] Last Admin: 02/06/18 08:53 Dose: 5 mg Hydralazine HCl (Apresoline) 25 mg PO TID [facility] Last Admin: 02/06/18 08:51 Dose: 25 mg Vancomycin HCl 1 gm/ Sodium (Chloride) 250 mls @ 166.667 mls/hr IVPB Q12 [facility] PRN Reason: Protocol Last Admin: 02/06/18 08:57 Dose: 166.667 mls/hr Piperacillin Sod/Tazobactam (Sod 3.375 gm/ Sodium Chloride) 100 mls @ 100 mls/ hr IVPB Q8 [facility] PRN Reason: Protocol Last Admin: 02/06/18 08:56 Dose: 100 mls/hr Insulin Detemir (Levemir) 50 units SC BID [facility] Last Admin: 02/06/18 08:52 Dose: 50 units Insulin Human Lispro (Humalog) 0 units SC ACHS [facility] PRN Reason: Protocol Last Admin: 02/05/18 23:00 Dose: Not Given Lisinopril (Zestril) 20 mg PO BID [facility] Last Admin: 02/06/18 08:53 Dose: 20 mg Pregabalin (Lyrica) 150 mg PO BID [facility] Last Admin: 02/06/18 08:55 Dose: 150 mg Sertraline HCl (Zoloft) 50 mg PO DAILY [facility] Last Admin: 02/06/18 08:53 Dose: 50 mg - Labs Labs: - Additional Findings Additional findings: - Constitutional Appears: No Acute Distress - Head Exam Head Exam: ATRAUMATIC - Eye Exam Eye Exam: EOMI - ENT Exam ENT Exam: Normal Oropharynx - Neck Exam Neck exam: Positive for: Full Rom - Respiratory Exam Respiratory Exam: Clear to Auscultation Bilateral, NORMAL BREATHING PATTERN - Cardiovascular Exam Cardiovascular Exam: RRR, +S1, +S2 - GI/Abdominal Exam GI & Abdominal Exam: Normal Bowel Sounds, Soft Additional comments: NT, ND - Extremities Exam Additional comments: right foot erythema resolved. right great toe plantar ulcer without any further discharge, Malodor has resolved. much improved. left foot no erythema, no ulcers right knee prosthetic joint surgical site clean/dry/intact - Neurological Exam Neurological exam: Alert, Oriented x 3 Laboratory Results - last 72 hr 02/03/18 02/03/18 02/03/18 11:34 16:37 21:00 WBC RBC Hgb Hct MCV MCH MCHC RDW Plt Count ESR Sodium Potassium Chloride Carbon Dioxide Anion Gap BUN Creatinine Est GFR ( Amer) Est GFR (Non-Af Amer) POC Glucose (mg/dL) 169 H 137 H Random Glucose Hemoglobin A1c Calcium Vancomycin Trough 10.1 H 02/03/18 02/03/18 02/04/18 21:43 23:13 00:40 WBC RBC Hgb Hct MCV MCH MCHC RDW Plt Count ESR Sodium Potassium Chloride Carbon Dioxide Anion Gap BUN Creatinine Est GFR ( Amer) Est GFR (Non-Af Amer) POC Glucose (mg/dL) 74 121 H 156 H Random Glucose Hemoglobin A1c Calcium Vancomycin Trough 02/04/18 02/04/18 02/04/18 05:00 05:00 05:00 WBC 7.8 RBC 5.12 Hgb 14.2 Hct 42.5 MCV 82.9 MCH 27.8 MCHC 33.5 RDW 16.8 H Plt Count 135 ESR Sodium 140 Potassium 3.7 Chloride 107 Carbon Dioxide 27 Anion Gap 10 BUN 15 Creatinine 1.0 Est GFR ( Amer) > 60 Est GFR (Non-Af Amer) > 60 POC Glucose (mg/dL) Random Glucose 78 Hemoglobin A1c 9.8 H Calcium 8.7 Vancomycin Trough 02/04/18 02/04/18 02/04/18 05:25 11:03 15:52 WBC RBC Hgb Hct MCV MCH MCHC RDW Plt Count ESR Sodium Potassium Chloride Carbon Dioxide Anion Gap BUN Creatinine Est GFR ( Amer) Est GFR (Non-Af Amer) POC Glucose (mg/dL) 71 152 H 237 H Random Glucose Hemoglobin A1c Calcium Vancomycin Trough 02/04/18 02/04/18 02/05/18 16:40 21:25 03:06 WBC RBC Hgb Hct MCV MCH MCHC RDW Plt Count ESR 13 Sodium Potassium Chloride Carbon Dioxide Anion Gap BUN Creatinine Est GFR ( Amer) Est GFR (Non-Af Amer) POC Glucose (mg/dL) 148 H 172 H Random Glucose Hemoglobin A1c Calcium Vancomycin Trough 02/05/18 02/05/18 02/05/18 05:18 05:24 05:24 WBC 7.6 RBC 4.95 Hgb 13.6 Hct 41.3 MCV 83.4 MCH 27.5 MCHC 32.9 L RDW 16.9 H Plt Count 141 ESR Sodium 138 Potassium 4.1 Chloride 105 Carbon Dioxide 23 Anion Gap 14 BUN 16 Creatinine 1.1 Est GFR ( Amer) > 60 Est GFR (Non-Af Amer) > 60 POC Glucose (mg/dL) 119 H Random Glucose 130 H Hemoglobin A1c Calcium 8.7 Vancomycin Trough 02/05/18 02/05/18 02/05/18 11:27 16:03 21:17 WBC RBC Hgb Hct MCV MCH MCHC RDW Plt Count ESR Sodium Potassium Chloride Carbon Dioxide Anion Gap BUN Creatinine Est GFR ( Amer) Est GFR (Non-Af Amer) POC Glucose (mg/dL) 116 H 172 H 141 H Random Glucose Hemoglobin A1c Calcium Vancomycin Trough 02/06/18 02/06/18 02/06/18 04:45 04:45 05:33 WBC RBC Hgb Hct MCV MCH MCHC RDW Plt Count ESR Sodium 139 Potassium 3.8 Chloride 107 Carbon Dioxide 25 Anion Gap 11 BUN 13 Creatinine 1.2 Est GFR ( Amer) > 60 Est GFR (Non-Af Amer) 59 POC Glucose (mg/dL) 53 L Random Glucose 78 Hemoglobin A1c Calcium 8.7 Vancomycin Trough 20.0 H 02/06/18 02/06/18 06:15 11:45 WBC RBC Hgb Hct MCV MCH MCHC RDW Plt Count ESR Sodium Potassium Chloride Carbon Dioxide Anion Gap BUN Creatinine Est GFR ( Amer) Est GFR (Non-Af Amer) POC Glucose (mg/dL) 115 H 135 H Random Glucose Hemoglobin A1c Calcium Vancomycin Trough Microbiology 02/03/18 10:57 Toe Gram Stain - Final 02/03/18 10:57 Toe Wound Culture - Final Coagulase Neg Staphylococcus 02/02/18 21:45 Blood-Venous Blood Culture - Preliminary NO GROWTH AFTER 3 DAYS 02/02/18 22:00 Blood-Venous Blood Culture - Preliminary NO GROWTH AFTER 3 DAYS 02/02/18 21:48 Urine,Clean Catch Urine Culture - Final No Growth (<1,000 CFU/ML) Assessment and Plan (1) Fever in adult Status: Acute (2) Foot ulcer Status: Acute (3) Leukocytosis Status: Acute (4) History of infection of total joint prosthesis of knee Status: Acute (5) Diabetes Status: Acute - Assessment and Plan (Free Text) Assessment: /P- 72 year old male with multiple medical conditions including DM II, HTN, BPH, 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 pt. clinically much better. remains afebrile past 72 hours. leukocytosis - resolved UA- neg cxr- negative as per report. JOSEFINA alveslers- No DVt as per report blood cx- neg x 2 wound cx- coag neg staph ESR- 13 (normal) plan- advise to continue with IV vanco and add zosyn since he is diabetic pending further results. day #4 hold vanco today since trough was high. recheck trough in am and if <15 can redose. low ESR case d/w pt's [employer] program coordinator at length and per him no indication of OM , hence advise 2 more days of IV antibiotics and then pt. 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 All above d/w patient at length and he verbalizes full understanding of all above and agrees with above plan of care.
--- NOTE | 2018-02-06 10:43 | CP.PCM.PN ---
Subjective - Date & Time of Evaluation Date of Evaluation: 02/06/18 Time of Evaluation: 10:30 - Subjective Subjective: No fever no CP no SOB Leukocytosis resolved mild foot discomfort Objective - Vital Signs/Intake and Output Vital Signs (last 24 hours): Temp Pulse Resp BP Pulse Ox 97.4 F L 54 L 20 151/81 H 97 02/06/18 08:00 02/06/18 08:53 02/06/18 08:00 02/06/18 08:53 02/06/18 08:00 - Medications Medications: Current Medications Allopurinol (Zyloprim) 300 mg PO DAILY [facility] Last Admin: 02/06/18 08:53 Dose: 300 mg Amlodipine Besylate (Norvasc) 10 mg PO DAILY [facility] Last Admin: 02/06/18 08:53 Dose: 10 mg Aspirin (Aspirin Chewable) 81 mg PO DAILY [facility] Last Admin: 02/06/18 08:52 Dose: 81 mg Atorvastatin Calcium (Lipitor) 10 mg PO DAILY [facility] Last Admin: 02/06/18 08:52 Dose: 10 mg Enoxaparin Sodium (Lovenox) 40 mg SC DAILY [facility] PRN Reason: Protocol Last Admin: 02/06/18 08:52 Dose: 40 mg Finasteride (Proscar) 5 mg PO DAILY [facility] Last Admin: 02/06/18 08:53 Dose: 5 mg Hydralazine HCl (Apresoline) 25 mg PO TID [facility] Last Admin: 02/06/18 08:51 Dose: 25 mg Vancomycin HCl 1 gm/ Sodium (Chloride) 250 mls @ 166.667 mls/hr IVPB Q12 [facility] PRN Reason: Protocol Last Admin: 02/06/18 08:57 Dose: 166.667 mls/hr Piperacillin Sod/Tazobactam (Sod 3.375 gm/ Sodium Chloride) 100 mls @ 100 mls/ hr IVPB Q8 [facility] PRN Reason: Protocol Last Admin: 02/06/18 08:56 Dose: 100 mls/hr Insulin Detemir (Levemir) 50 units SC BID [facility] Last Admin: 02/06/18 08:52 Dose: 50 units Insulin Human Lispro (Humalog) 0 units SC ACHS [facility] PRN Reason: Protocol Last Admin: 02/05/18 23:00 Dose: Not Given Lisinopril (Zestril) 20 mg PO BID [facility] Last Admin: 02/06/18 08:53 Dose: 20 mg Pregabalin (Lyrica) 150 mg PO BID [facility] Last Admin: 02/06/18 08:55 Dose: 150 mg Sertraline HCl (Zoloft) 50 mg PO DAILY [facility] Last Admin: 02/06/18 08:53 Dose: 50 mg - Labs Labs: 02/05/18 05:24 02/06/18 04:45 - Constitutional Appears: No Acute Distress - Head Exam Head Exam: NORMAL INSPECTION, NORMOCEPHALIC - Eye Exam Eye Exam: EOMI, Normal appearance Pupil Exam: NORMAL ACCOMODATION - ENT Exam ENT Exam: Mucous Membranes Moist, Normal External Ear Exam - Neck Exam Neck Exam: Full ROM. absent: Meningismus - Respiratory Exam Respiratory Exam: NORMAL BREATHING PATTERN. absent: Respiratory Distress - Cardiovascular Exam Cardiovascular Exam: REGULAR RHYTHM, +S1, +S2 - GI/Abdominal Exam GI & Abdominal Exam: Soft, Normal Bowel Sounds. absent: Tenderness - Extremities Exam Extremities Exam: Normal Capillary Refill. absent: Calf Tenderness Additional comments: right foot with dressing - Back Exam Back Exam: Full ROM. absent: CVA tenderness (L), CVA tenderness (R) - Neurological Exam Neurological Exam: Alert, Awake, Oriented x3 - Psychiatric Exam Psychiatric exam: Normal Affect, Normal Mood - Skin Skin Exam: Dry, Normal Color, Warm Assessment and Plan - Assessment and Plan (Free Text) Assessment: 72 years old male with hx of DM, chronic non healing right great toe ulcer, CKD ,come comes with fever and chills and mild dizziness. MRI of the Foot : Prominent osseous deformity noted at the level of the 1st proximal phalanx extending to the level of the mid 1st metatarsal head as well as the base of the 1st distal phalanx. At this level, there is prominent signal changes with decreased T1 signal and increased STIR signal. Prominent reticulation and edema is noted within the adjacent subcutaneous soft tissues. Fluid at the 1st MTP joint space. Signal change also noted within the medial sesamoid bone with decreased T1 signal and increased STIR signal. These changes may be the sequelae of acute infectious and or inflammatory changes such as acute osteomyelitis. In the setting of postsurgical changes this may represent superimposed acute infectious changes on the postsurgical changes. Given the extent of the signal abnormality within the 1st proximal phalanx underlying osteonecrosis cannot be excluded. Clinical correlation. 1. Acute Cellulitis, right foot Pt has a chronic non healing ulcer at the right great toe - came in with fever 102.8 and leukocytosis - most likely secondary to acute on chronic infection great toe - s/p Debridement - Consulted Dr Ball ID - rec to cont IV Vanco and Zosyn x 2 more days then switch to PO abx for 2-3 more weeks - Podiatry Consulted- following pt - as per DR Alvarez - no acute OM - ECHO : no vegetation - Wound Gram Stain : few Gram neg rds and few Gram + cocci ( c/s: final Coag Neg Staph) -Blood c/s : neg so far - leukocytosis resolved, fever resolved - Doppler US of LE : neg 2. Dehydration - gentle IV fluid hydration 3. DM II with hyperglycemia - cont Levemir 50 u BID - Lispro sliding scale according to accucheck - UuP2j=0.8 4. HTN cont Norvasc, Lisinopril, Hydralazine DVT prophylaxis with Lovenox
[2018-02-06] MEDS: Insulin Lispro (humaLOG) 100 Units/ml Inj SC SCH ×3 (12:00→22:00)
--- NOTE | 2018-02-06 14:36 | CP.PCM.PN ---
Subjective - Date & Time of Evaluation Date of Evaluation: 02/06/18 Time of Evaluation: 14:34 - Subjective Subjective: Podiatry progress note for Attending Dr. Alvarez, 72 y/o male seen and evaluated at bedside. Patient was resting comfortably and in no acute distress. Patient is AAO X 3. Patient's dressing was C/D/I. Patient denied any pain in his feet at this time. Patient denies any overnight acute events. Patient denies any other pedal complaints. Patient denies F/V/N/ SOB/chills Objective - Vital Signs/Intake and Output Vital Signs (last 24 hours): Temp Pulse Resp BP Pulse Ox 97.8 F 56 L 20 148/73 98 02/06/18 12:31 02/06/18 12:31 02/06/18 12:31 02/06/18 12:31 02/06/18 12:31 - Medications Medications: Current Medications Allopurinol (Zyloprim) 300 mg PO DAILY [facility] Last Admin: 02/06/18 08:53 Dose: 300 mg Amlodipine Besylate (Norvasc) 10 mg PO DAILY [facility] Last Admin: 02/06/18 08:53 Dose: 10 mg Aspirin (Aspirin Chewable) 81 mg PO DAILY [facility] Last Admin: 02/06/18 08:52 Dose: 81 mg Atorvastatin Calcium (Lipitor) 10 mg PO DAILY [facility] Last Admin: 02/06/18 08:52 Dose: 10 mg Enoxaparin Sodium (Lovenox) 40 mg SC DAILY [facility] PRN Reason: Protocol Last Admin: 02/06/18 08:52 Dose: 40 mg Finasteride (Proscar) 5 mg PO DAILY [facility] Last Admin: 02/06/18 08:53 Dose: 5 mg Hydralazine HCl (Apresoline) 25 mg PO TID [facility] Last Admin: 02/06/18 12:03 Dose: 25 mg Vancomycin HCl 1 gm/ Sodium (Chloride) 250 mls @ 166.667 mls/hr IVPB Q12 [facility] PRN Reason: Protocol Last Admin: 02/06/18 08:57 Dose: 166.667 mls/hr Piperacillin Sod/Tazobactam (Sod 3.375 gm/ Sodium Chloride) 100 mls @ 100 mls/ hr IVPB Q8 [facility] PRN Reason: Protocol Last Admin: 02/06/18 08:56 Dose: 100 mls/hr Insulin Detemir (Levemir) 50 units SC BID [facility] Last Admin: 02/06/18 08:52 Dose: 50 units Insulin Human Lispro (Humalog) 0 units SC [facility] PRN Reason: Protocol Last Admin: 02/06/18 12:00 Dose: Not Given Lisinopril (Zestril) 20 mg PO BID [facility] Last Admin: 02/06/18 08:53 Dose: 20 mg Pregabalin (Lyrica) 150 mg PO BID [facility] Last Admin: 02/06/18 08:55 Dose: 150 mg Sertraline HCl (Zoloft) 50 mg PO DAILY [facility] Last Admin: 02/06/18 08:53 Dose: 50 mg - Labs Labs: 02/05/18 05:24 02/06/18 04:45 - Constitutional Appears: Well, Non-toxic, No Acute Distress - Head Exam Head Exam: ATRAUMATIC, NORMOCEPHALIC - Extremities Exam Additional comments: Bilateral Lower Extremity focused Exam Vasc: DP 2/4 B/L, PT 1/4 VB/L, Cap refill < 3 seconds in all digits, Temp. gradient warm to cool bilaterally, minimal non-pitting edema noted to the dorsal aspect of the right foot near the right hallux. Neuro: Protective sensation significantly diminished B/L. gross sensation intact B/L DERM: submet 1 R foot ulcer, Round in shape, measuring 4.0 cm X 4.5 cm, 100% granular base with fibrotic border, no malodor, no drainage, no tunneling, no probe to bone, no undermining, Hyperkeratotic rim. MSK: patient range of motion within normal limits. Muscle power intact 5/5 in all muscle groups B/L. - Neurological Exam Neurological Exam: Alert, Awake, Oriented x3 - Psychiatric Exam Psychiatric exam: Normal Affect, Normal Mood Assessment and Plan - Assessment and Plan (Free Text) Assessment: 72 y/o male patient with chronic ulceration submetatarsal 1 of the right foot Plan: Patient seen and evaluated at the bedside. Plan discussed in details with attending Dr. Alvarez Charts, labs and vitals reviewed, Afebrile, No leukocytosis. Extremity US reveals no DVT Foot X-rays shows chronic osteomyelitis suspected 1st digit, no acute findings Lower Extremity MRI shows prominent signal changes with decreased T1 signal and increased STIR signal, reticulation and edema noted wihtin the adjacent subq tissue, fluid at the 1st MTPJ, changes noted within the medial sesamoid bone, changes may be the sequelae of acute infectious and inflammatory changes such as acute OM, marked heterotrophic changes noted at the level of the 2nd met bone at the side of fracture deformity with callus formation Wound Cx- Coagulase negative Staphylococcus Wound dressing done with wet to dry dressing Continue IV Antibiotics as per ID recommendation by Dr. Ball Podiatry will continue to follow the patient while in-house
[2018-02-07] MEDS ORDERED: Dextrose 50% SYRINGE Inj (50 ml) IV PRN (08:20)
[2018-02-07] MEDS ORDERED: Glucagon Recombinant 1 mg Inj IM PRN (08:20)
[2018-02-07] MEDS ORDERED: Insulin Detemir 100 Units/ml Inj SC SCH (09:09)
[2018-02-07] MEDS: Insulin Lispro (humaLOG) 100 Units/ml Inj SC SCH ×4 (09:43→21:52)
[2018-02-07] MEDS: Enoxaparin 40 mg Syringe SC SCH (09:44)
[2018-02-07] MEDS: Piperacillin/Tazobact 3.375 GM in Sodium Chloride 0.9% 100 ML IVPB SCH ×3 (09:46→16:55)
--- NOTE | 2018-02-07 11:03 | CP.PCM.PN ---
Subjective - Date & Time of Evaluation Date of Evaluation: 02/07/18 Time of Evaluation: 10:30 - Subjective Subjective: No fever had episode of Hypoglycemia this am Glucose =42 also had low fasting glucose yseterday - Levemir dose decreased denies CP no SOB no abd pain Objective - Vital Signs/Intake and Output Vital Signs (last 24 hours): Temp Pulse Resp BP Pulse Ox 98 F 60 18 102/56 L 100 02/07/18 09:00 02/07/18 09:44 02/07/18 09:00 02/07/18 09:44 02/07/18 09:00 - Medications Medications: Current Medications Allopurinol (Zyloprim) 300 mg PO DAILY [facility] Last Admin: 02/07/18 09:41 Dose: 300 mg Amlodipine Besylate (Norvasc) 10 mg PO DAILY [facility] Last Admin: 02/07/18 09:44 Dose: 10 mg Aspirin (Aspirin Chewable) 81 mg PO DAILY [facility] Last Admin: 02/07/18 09:41 Dose: 81 mg Atorvastatin Calcium (Lipitor) 10 mg PO DAILY [facility] Last Admin: 02/06/18 08:52 Dose: 10 mg Dextrose (Dextrose 50% Inj) 0 ml IV STAT PRN; Protocol PRN Reason: Hypoglycemia Protocol Dextrose (Glutose 15) 0 gm PO ONCE PRN; Protocol PRN Reason: Hypoglycemia Protocol Enoxaparin Sodium (Lovenox) 40 mg SC DAILY [facility] PRN Reason: Protocol Last Admin: 02/07/18 09:44 Dose: 40 mg Finasteride (Proscar) 5 mg PO DAILY [facility] Last Admin: 02/07/18 09:45 Dose: 5 mg Glucagon (Glucagen Diagnostic Kit) 0 mg IM STAT PRN; Protocol PRN Reason: Hypoglycemia Protocol Hydralazine HCl (Apresoline) 25 mg PO TID [facility] Last Admin: 02/07/18 09:43 Dose: 25 mg Piperacillin Sod/Tazobactam (Sod 3.375 gm/ Sodium Chloride) 100 mls @ 100 mls/ hr IVPB Q8 [facility] PRN Reason: Protocol Last Admin: 02/07/18 09:46 Dose: 100 mls/hr Vancomycin HCl 750 mg/ Sodium (Chloride) 250 mls @ 166.667 mls/hr IVPB Q12 [facility] PRN Reason: Protocol Last Admin: 02/07/18 09:45 Dose: 166.667 mls/hr Insulin Detemir (Levemir) 25 units SC BID [facility] Insulin Human Lispro (Humalog) 0 units SC ACHS [facility] PRN Reason: Protocol Last Admin: 02/07/18 09:43 Dose: Not Given Lisinopril (Zestril) 20 mg PO BID [facility] Last Admin: 02/07/18 09:42 Dose: Not Given Pregabalin (Lyrica) 150 mg PO BID [facility] Last Admin: 02/06/18 16:16 Dose: 150 mg Sertraline HCl (Zoloft) 50 mg PO DAILY [facility] Last Admin: 02/07/18 09:42 Dose: 50 mg - Labs Labs: 02/05/18 05:24 02/06/18 04:45 - Constitutional Appears: No Acute Distress - Head Exam Head Exam: NORMAL INSPECTION, NORMOCEPHALIC - Eye Exam Eye Exam: EOMI, Normal appearance Pupil Exam: NORMAL ACCOMODATION - ENT Exam ENT Exam: Mucous Membranes Moist, Normal External Ear Exam - Neck Exam Neck Exam: Full ROM. absent: Meningismus - Respiratory Exam Respiratory Exam: NORMAL BREATHING PATTERN. absent: Respiratory Distress - Cardiovascular Exam Cardiovascular Exam: REGULAR RHYTHM, +S1, +S2 - GI/Abdominal Exam GI & Abdominal Exam: Soft, Normal Bowel Sounds. absent: Tenderness - Extremities Exam Extremities Exam: Normal Capillary Refill. absent: Calf Tenderness Additional comments: right foot with dressing - Back Exam Back Exam: Full ROM. absent: CVA tenderness (L), CVA tenderness (R) - Neurological Exam Neurological Exam: Alert, Awake, Oriented x3 - Psychiatric Exam Psychiatric exam: Normal Affect, Normal Mood - Skin Skin Exam: Dry, Normal Color, Warm Assessment and Plan - Assessment and Plan (Free Text) Assessment: 72 years old male with hx of DM, chronic non healing right great toe ulcer, CKD ,come comes with fever and chills and mild dizziness. MRI of the Foot : Prominent osseous deformity noted at the level of the 1st proximal phalanx extending to the level of the mid 1st metatarsal head as well as the base of the 1st distal phalanx. At this level, there is prominent signal changes with decreased T1 signal and increased STIR signal. Prominent reticulation and edema is noted within the adjacent subcutaneous soft tissues. Fluid at the 1st MTP joint space. Signal change also noted within the medial sesamoid bone with decreased T1 signal and increased STIR signal. These changes may be the sequelae of acute infectious and or inflammatory changes such as acute osteomyelitis. In the setting of postsurgical changes this may represent superimposed acute infectious changes on the postsurgical changes. Given the extent of the signal abnormality within the 1st proximal phalanx underlying osteonecrosis cannot be excluded. Clinical correlation. 1. Acute Cellulitis, right foot Pt has a chronic non healing ulcer at the right great toe - came in with fever 102.8 and leukocytosis - most likely secondary to acute on chronic infection great toe - s/p Debridement - Consulted Dr Ball ID - rec to cont IV Vanco and Zosyn until Thursday then switch to PO abx for 2-3 more weeks - Podiatry Consulted- following pt - as per DR Alvarez - no acute OM - ECHO : no vegetation - Wound Gram Stain : few Gram neg rds and few Gram + cocci ( c/s: final Coag Neg Staph) -Blood c/s : neg so far - leukocytosis resolved, fever resolved - Doppler US of LE : neg 2. Dehydration - gentle IV fluid hydration 3. DM II with hypoglycemia - decrease Levemir to 25 unit BID - Lispro sliding scale according to accucheck - NdH1j=8.8 - 4. HTN cont Norvasc, Lisinopril, Hydralazine 5. CAD, stable Nuclear Stress test done 11/18 : small fixed defect - cont ASA, Statin, JENIFER DVT prophylaxis with Lovenox
--- NOTE | 2018-02-07 11:55 | CP.PCM.PN ---
Subjective - Date & Time of Evaluation Date of Evaluation: 02/07/18 Time of Evaluation: 11:52 - Subjective Subjective: Podiatry progress note for Attending Dr. Alvarez, 72 y/o male was seen and evaluated at bedside. Patient was resting comfortably. Patient is AAO X 3. Patient is in no acute distress Patient's dressing was clean, dry and intact. Patient denies any pain in his feet at this time. Patient denies any overnight acute events. Patient denies any other pedal complaints. Patient denies F/V/N/SOB/chills last night. Objective - Vital Signs/Intake and Output Vital Signs (last 24 hours): Temp Pulse Resp BP Pulse Ox 98 F 60 18 102/56 L 100 02/07/18 09:00 02/07/18 09:44 02/07/18 09:00 02/07/18 09:44 02/07/18 09:00 - Medications Medications: Current Medications Allopurinol (Zyloprim) 300 mg PO DAILY [facility] Last Admin: 02/07/18 09:41 Dose: 300 mg Amlodipine Besylate (Norvasc) 10 mg PO DAILY [facility] Last Admin: 02/07/18 09:44 Dose: 10 mg Aspirin (Aspirin Chewable) 81 mg PO DAILY [facility] Last Admin: 02/07/18 09:41 Dose: 81 mg Atorvastatin Calcium (Lipitor) 10 mg PO DAILY [facility] Last Admin: 02/06/18 08:52 Dose: 10 mg Dextrose (Dextrose 50% Inj) 0 ml IV STAT PRN; Protocol PRN Reason: Hypoglycemia Protocol Dextrose (Glutose 15) 0 gm PO ONCE PRN; Protocol PRN Reason: Hypoglycemia Protocol Enoxaparin Sodium (Lovenox) 40 mg SC DAILY [facility] PRN Reason: Protocol Last Admin: 02/07/18 09:44 Dose: 40 mg Finasteride (Proscar) 5 mg PO DAILY [facility] Last Admin: 02/07/18 09:45 Dose: 5 mg Glucagon (Glucagen Diagnostic Kit) 0 mg IM STAT PRN; Protocol PRN Reason: Hypoglycemia Protocol Hydralazine HCl (Apresoline) 25 mg PO TID [facility] Last Admin: 02/07/18 09:43 Dose: 25 mg Piperacillin Sod/Tazobactam (Sod 3.375 gm/ Sodium Chloride) 100 mls @ 100 mls/ hr IVPB Q8 [facility] PRN Reason: Protocol Last Admin: 02/07/18 09:46 Dose: 100 mls/hr Vancomycin HCl 750 mg/ Sodium (Chloride) 250 mls @ 166.667 mls/hr IVPB Q12 [facility] PRN Reason: Protocol Last Admin: 02/07/18 09:45 Dose: 166.667 mls/hr Insulin Detemir (Levemir) 25 units SC BID [facility] Insulin Human Lispro (Humalog) 0 units SC ACHS [facility] PRN Reason: Protocol Last Admin: 02/07/18 09:43 Dose: Not Given Lisinopril (Zestril) 20 mg PO BID [facility] Last Admin: 02/07/18 09:42 Dose: Not Given Pregabalin (Lyrica) 150 mg PO BID [facility] Last Admin: 02/06/18 16:16 Dose: 150 mg Sertraline HCl (Zoloft) 50 mg PO DAILY [facility] Last Admin: 02/07/18 09:42 Dose: 50 mg - Labs Labs: 02/05/18 05:24 02/06/18 04:45 - Constitutional Appears: Well, Non-toxic, No Acute Distress - Head Exam Head Exam: ATRAUMATIC, NORMOCEPHALIC - Extremities Exam Additional comments: Bilateral Lower Extremity focused Exam Vasc: DP 2/4 B/L, PT 1/4 B/L, Cap refill < 3 seconds in all digits, Temperature gradient warm to cool B/L, minimal non-pitting edema noted to the dorsal aspect of the right foot near the right hallux. Neuro: Protective sensation significantly diminished B/L. gross sensation intact B/L DERM: submet 1 R foot ulcer, Round in shape, measuring 3.0 cm X 3.0 cm, 100% granular base with fibrotic border, no malodor, no drainage, no tunneling, no probe to bone, no undermining, minimal hyperkeratotic rim. ulcer is almost closing. MSK: Fot jints ROM are within normal limits. Muscle power intact 5/5 in all muscle groups B/L. - Neurological Exam Neurological Exam: Alert, Awake, Oriented x3 - Psychiatric Exam Psychiatric exam: Normal Affect, Normal Mood Assessment and Plan - Assessment and Plan (Free Text) Assessment: 72 y/o male patient with chronic ulceration submetatarsal 1 of the right foot Plan: Patient seen and evaluated at the bedside. Plan discussed in details with the attending Dr. Alvarez Charts, labs and vitals reviewed; Afebrile. Extremity US reveals no DVT Foot X-rays shows chronic osteomyelitis suspected 1st digit, no acute findings Lower Extremity MRI shows prominent signal changes with decreased T1 signal and increased STIR signal, reticulation and edema noted wihtin the adjacent subq tissue, fluid at the 1st MTPJ, changes noted within the medial sesamoid bone, changes may be the sequelae of acute infectious and inflammatory changes such as acute OM, marked heterotrophic changes noted at the level of the 2nd met bone at the side of fracture deformity with callus formation Wound Cx- Coagulase negative Staphylococcus Wound is dressed using wet to dry dressing. Continue IV Antibiotics as per ID recommendation by Dr. Ball Patient is stable from the podiatry point. Podiatry will continue to follow up the patient while in-house
[2018-02-07] MEDS: Insulin Detemir 100 Units/ml Inj SC SCH (13:27)
[2018-02-08] MEDS: Piperacillin/Tazobact 3.375 GM in Sodium Chloride 0.9% 100 ML IVPB SCH ×2 (00:12→09:10)
--- NOTE | 2018-02-08 06:00 | CP.PCM.PN ---
Subjective - Date & Time of Evaluation Date of Evaluation: 02/08/18 Time of Evaluation: 05:58 - Subjective Subjective: Podiatry progress note for Dr. Alvarez, 72 y/o male seen and evaluated at bedside. Patient was resting comfortably and in no acute distress. Patient's dressing was clean, dry and intact. Patient denied any pain at this time. Patient reports he will be going home today. Patient denies any new pedal complaints. Patient denies F/V/N/SOB/chills Objective - Vital Signs/Intake and Output Vital Signs (last 24 hours): Temp Pulse Resp BP Pulse Ox 97.5 F L 57 L 17 148/80 99 02/08/18 04:48 02/08/18 04:48 02/08/18 04:48 02/08/18 04:48 02/08/18 04:48 Intake and Output: 02/07/18 02/08/18 18:59 06:59 Intake Total 1450 Balance 1450 - Medications Medications: Current Medications Allopurinol (Zyloprim) 300 mg PO DAILY [facility] Last Admin: 02/07/18 09:41 Dose: 300 mg Amlodipine Besylate (Norvasc) 10 mg PO DAILY [facility] Last Admin: 02/07/18 09:44 Dose: 10 mg Aspirin (Aspirin Chewable) 81 mg PO DAILY [facility] Last Admin: 02/07/18 09:41 Dose: 81 mg Atorvastatin Calcium (Lipitor) 10 mg PO DAILY@2200 [facility] Last Admin: 02/07/18 21:54 Dose: 10 mg Dextrose (Dextrose 50% Inj) 0 ml IV STAT PRN; Protocol PRN Reason: Hypoglycemia Protocol Dextrose (Glutose 15) 0 gm PO ONCE PRN; Protocol PRN Reason: Hypoglycemia Protocol Enoxaparin Sodium (Lovenox) 40 mg SC DAILY [facility] PRN Reason: Protocol Last Admin: 02/07/18 09:44 Dose: 40 mg Finasteride (Proscar) 5 mg PO DAILY [facility] Last Admin: 02/07/18 09:45 Dose: 5 mg Glucagon (Glucagen Diagnostic Kit) 0 mg IM STAT PRN; Protocol PRN Reason: Hypoglycemia Protocol Hydralazine HCl (Apresoline) 25 mg PO TID [facility] Last Admin: 02/07/18 17:01 Dose: 25 mg Piperacillin Sod/Tazobactam (Sod 3.375 gm/ Sodium Chloride) 100 mls @ 100 mls/ hr IVPB Q8 [facility] PRN Reason: Protocol Last Admin: 02/08/18 00:12 Dose: 100 mls/hr Vancomycin HCl 750 mg/ Sodium (Chloride) 250 mls @ 166.667 mls/hr IVPB Q12 [facility] PRN Reason: Protocol Last Admin: 02/07/18 21:55 Dose: 166.667 mls/hr Insulin Detemir (Levemir) 25 units SC BID [facility] Last Admin: 02/07/18 17:00 Dose: 25 units Insulin Human Lispro (Humalog) 0 units SC ACHS [facility] PRN Reason: Protocol Last Admin: 02/07/18 21:52 Dose: Not Given Lisinopril (Zestril) 20 mg PO BID [facility] Last Admin: 02/07/18 17:00 Dose: 20 mg Pregabalin (Lyrica) 150 mg PO BID [facility] Last Admin: 02/07/18 17:00 Dose: 150 mg Sertraline HCl (Zoloft) 50 mg PO DAILY [facility] Last Admin: 02/07/18 09:42 Dose: 50 mg - Labs Labs: 02/05/18 05:24 02/06/18 04:45 - Constitutional Appears: Well, Non-toxic, No Acute Distress - Head Exam Head Exam: ATRAUMATIC, NORMOCEPHALIC - Extremities Exam Additional comments: Bilateral Lower Extremity focused Exam VASC: DP 2/4 bilaterally, PT 1/4 bilaterally, CFT less than 3 seconds X 10, TG warm to cool bilaterally, minimal non-pitting edema noted to the dorsal aspect of the right foot, especially the right hallux NEURO: Protective sensation significantly diminished bilaterally DERM: hyperkeratotic lesion present submet 1, measuring 4.0 cm X 4.5 cm, no malodor, no drainage, no clinical signs of infection MSK: patient range of motion within normal limits - Neurological Exam Neurological Exam: Alert, Awake, Oriented x3 - Psychiatric Exam Psychiatric exam: Normal Affect, Normal Mood Assessment and Plan - Assessment and Plan (Free Text) Assessment: 72 y/o male patient with chronic ulceration submetatarsal 1 of the right foot Plan: Patient seen and evaluated Plan discussed with attending Dr. Alvarez Charts, labs and vitals reviewed- Afebrile, No leukocytosis Extremity US- no DVT Foot X-rays- chronic osteomyelitis suspected 1st digit, no acute findings Lower Extremity MRI- prominent signal changes with decreased T1 signal and increased STIR signal, reticulation and edema noted wihtin the adjacent subq tissue, fluid at the 1st MTPJ, changes noted within the medial sesamoid bone, changes may be the sequelae of acute infectious and inflammatory changes such as acute OM, marked heterotrophic changes noted at the level of the 2nd met bone at the side of fracture deformity with callus formation Wound Cx- Coagulase Negative Staph HgA1c- 9.8 mg/dL Wound stable and dressed with DSD As per Dr. Alvarez and Infectious disease, patient will be discharged on 2-3 weeks of PO antibiotics Podiatry will continue to follow the patient while in-house
[2018-02-08] MEDS: Insulin Lispro (humaLOG) 100 Units/ml Inj SC SCH ×2 (06:30→13:59)
[2018-02-08 08:07] VITALS: RESP 18
[2018-02-08] MEDS ORDERED: Insulin Detemir 100 Units/ml Inj SC SCH (08:10)
[2018-02-08] MEDS: Enoxaparin 40 mg Syringe SC SCH (08:47)
--- NOTE | 2018-02-08 10:48 | CP.PCM.PN ---
Subjective - Date & Time of Evaluation Date of Evaluation: 02/08/18 Time of Evaluation: 10:48 - Subjective Subjective: ID Note- Pt. seen and examined today. Pt. in good spirits and denies any complaints. denies any fever or chills and is happy about going home today. Objective - Vital Signs/Intake and Output Vital Signs (last 24 hours): Temp Pulse Resp BP Pulse Ox 97.8 F 58 L 18 181/84 H 99 02/08/18 08:00 02/08/18 08:51 02/08/18 08:00 02/08/18 08:51 02/08/18 08:00 - Medications Medications: Current Medications Allopurinol (Zyloprim) 300 mg PO DAILY [facility] [place] Last Admin: 02/08/18 08:46 Dose: 300 mg Amlodipine Besylate (Norvasc) 10 mg PO DAILY [facility] [place] Last Admin: 02/08/18 08:46 Dose: 10 mg Aspirin (Aspirin Chewable) 81 mg PO DAILY [facility] [place] Last Admin: 02/08/18 08:48 Dose: 81 mg Atorvastatin Calcium (Lipitor) 10 mg PO DAILY@2200 [facility] [place] Last Admin: 02/07/18 21:54 Dose: 10 mg Dextrose (Dextrose 50% Inj) 0 ml IV STAT PRN; Protocol PRN Reason: Hypoglycemia Protocol Dextrose (Glutose 15) 0 gm PO ONCE PRN; Protocol PRN Reason: Hypoglycemia Protocol Enoxaparin Sodium (Lovenox) 40 mg SC DAILY [facility] PRN Reason: Protocol Last Admin: 02/08/18 08:47 Dose: 40 mg Finasteride (Proscar) 5 mg PO DAILY [facility] [place] Last Admin: 02/08/18 08:51 Dose: 5 mg Glucagon (Glucagen Diagnostic Kit) 0 mg IM STAT PRN; Protocol PRN Reason: Hypoglycemia Protocol Hydralazine HCl (Apresoline) 25 mg PO TID [facility] [place] Last Admin: 02/08/18 08:49 Dose: 25 mg Piperacillin Sod/Tazobactam (Sod 3.375 gm/ Sodium Chloride) 100 mls @ 100 mls/ hr IVPB Q8 [facility] PRN Reason: Protocol Last Admin: 02/08/18 09:10 Dose: 100 mls/hr Vancomycin HCl 750 mg/ Sodium (Chloride) 250 mls @ 166.667 mls/hr IVPB Q12 [facility] PRN Reason: Protocol Last Admin: 02/08/18 08:52 Dose: 166.667 mls/hr Insulin Detemir (Levemir) 30 units SC BID [facility] [place] Last Admin: 02/08/18 08:49 Dose: 30 unit Insulin Human Lispro (Humalog) 0 units SC ACHS [facility] [place] PRN Reason: Protocol Last Admin: 02/08/18 06:30 Dose: Not Given Lisinopril (Zestril) 20 mg PO BID [facility] [place] Last Admin: 02/08/18 08:51 Dose: 20 mg Pregabalin (Lyrica) 150 mg PO BID [facility] [place] Last Admin: 02/08/18 09:05 Dose: 150 mg Sertraline HCl (Zoloft) 50 mg PO DAILY [facility] [place] Last Admin: 02/08/18 08:51 Dose: 50 mg - Labs Labs: - Additional Findings Additional findings: - Constitutional Appears: No Acute Distress - Head Exam Head Exam: ATRAUMATIC - Eye Exam Eye Exam: EOMI - ENT Exam ENT Exam: Normal Oropharynx - Neck Exam Neck exam: Positive for: Full Rom - Respiratory Exam Respiratory Exam: Clear to Auscultation Bilateral, NORMAL BREATHING PATTERN - Cardiovascular Exam Cardiovascular Exam: RRR, +S1, +S2 - GI/Abdominal Exam GI & Abdominal Exam: Normal Bowel Sounds, Soft Additional comments: NT, ND - Extremities Exam Additional comments: right foot erythema resolved. right great toe plantar ulcer without any further discharge, Malodor has resolved. much improved. left foot no erythema, no ulcers right knee prosthetic joint surgical site clean/dry/intact - Neurological Exam Neurological exam: Alert, Oriented x 3 Laboratory Results - last 72 hr 02/05/18 02/05/18 02/06/18 16:03 21:17 04:45 Sodium Potassium Chloride Carbon Dioxide Anion Gap BUN Creatinine Est GFR ( Amer) Est GFR (Non-Af Amer) POC Glucose (mg/dL) 172 H 141 H Random Glucose Calcium Vancomycin Trough 20.0 H 02/06/18 02/06/18 02/06/18 04:45 05:33 06:15 Sodium 139 Potassium 3.8 Chloride 107 Carbon Dioxide 25 Anion Gap 11 BUN 13 Creatinine 1.2 Est GFR ( Amer) > 60 Est GFR (Non-Af Amer) 59 POC Glucose (mg/dL) 53 L 115 H Random Glucose 78 Calcium 8.7 Vancomycin Trough 02/06/18 02/06/18 02/06/18 11:45 15:58 22:21 Sodium Potassium Chloride Carbon Dioxide Anion Gap BUN Creatinine Est GFR ( Amer) Est GFR (Non-Af Amer) POC Glucose (mg/dL) 135 H 113 H 104 Random Glucose Calcium Vancomycin Trough 02/07/18 02/07/18 02/07/18 05:46 07:25 07:33 Sodium Potassium Chloride Carbon Dioxide Anion Gap BUN Creatinine Est GFR ( Amer) Est GFR (Non-Af Amer) POC Glucose (mg/dL) 42 L 73 Random Glucose Calcium Vancomycin Trough 10.0 02/07/18 02/07/18 02/07/18 09:39 11:37 16:48 Sodium Potassium Chloride Carbon Dioxide Anion Gap BUN Creatinine Est GFR ( Amer) Est GFR (Non-Af Amer) POC Glucose (mg/dL) 161 H 142 H 223 H Random Glucose Calcium Vancomycin Trough 02/07/18 02/08/18 02/08/18 21:46 05:15 11:06 Sodium Potassium Chloride Carbon Dioxide Anion Gap BUN Creatinine Est GFR ( Amer) Est GFR (Non-Af Amer) POC Glucose (mg/dL) 222 H 128 H 216 H Random Glucose Calcium Vancomycin Trough Microbiology 02/02/18 21:45 Blood-Venous Blood Culture - Final NO GROWTH AFTER 5 DAYS 02/02/18 22:00 Blood-Venous Blood Culture - Final NO GROWTH AFTER 5 DAYS 02/02/18 22:00 Blood-Venous Gram Stain - Final TEST NOT PERFORMED 02/03/18 10:57 Toe Gram Stain - Final 02/03/18 10:57 Toe Wound Culture - Final Coagulase Neg Staphylococcus 02/02/18 21:48 Urine,Clean Catch Urine Culture - Final No Growth (<1,000 CFU/ML) Assessment and Plan (1) Fever in adult Status: Acute (2) Foot ulcer Status: Acute (3) Leukocytosis Status: Acute (4) History of infection of total joint prosthesis of knee Status: Acute (5) Diabetes Status: Acute - Assessment and Plan (Free Text) Assessment: /P- 72 year old male with multiple medical conditions including DM II, HTN, BPH, 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 pt. clinically much better. remains afebrile past 5 days. leukocytosis - resolved UA- neg cxr- negative as per report. JOSEFINA santoyo- No DVt as per report blood cx- neg x 2 wound cx- coag neg staph ESR- 13 (normal) plan- has completed 6 days of IV vanco and zosyn for the right foot ulcer. much improved. will be d/c home today on oral bactrim DS BID for 4 weeks. advised to drink plenty of water while on antibiotic along with probiotic. pt. will f/u closely with his organ tuner electronic , has appointment for this week. f/u with me in 1 week. advised pt. if he develops any fever or chills or any side effects from the antibiotic to immediately notify me or come to ER. All above d/w patient at length and he verbalizes full understanding of all above and agrees with above plan of care.
[2018-02-08 12:09] VITALS: TEMP 97.9; O2SAT 98
--- NOTE | 2018-02-08 13:49 | CP.PCM.DIS ---
Provider - Provider Date of Admission: 02/03/18 14:51 Attending physician: Saman Linder Primary care physician: Dr Ball Consults: ID: Dr Ball Cardio: Dr Vaughn Podiatry: Dr Alvarez Time Spent in preparation of Discharge (in minutes): 35 Diagnosis - Discharge Diagnosis (1) Cellulitis of foot, right Status: Acute (2) CAD (coronary artery disease) Status: Chronic (3) Diabetes Status: Chronic (4) HTN (hypertension) Status: Chronic (5) PVD (peripheral vascular disease) Status: Chronic Hospital Course - Lab Results Lab Results: Micro Results 02/02/18 21:45 Blood-Venous Blood Culture - Final NO GROWTH AFTER 5 DAYS 02/02/18 22:00 Blood-Venous Blood Culture - Final NO GROWTH AFTER 5 DAYS 02/02/18 22:00 Blood-Venous Gram Stain - Final TEST NOT PERFORMED 02/03/18 10:57 Toe Gram Stain - Final 02/03/18 10:57 Toe Wound Culture - Final Coagulase Neg Staphylococcus 02/02/18 21:48 Urine,Clean Catch Urine Culture - Final No Growth (<1,000 CFU/ML) Most Recent Lab Values WBC 7.6 K/uL (4.8-10.8) 02/05/18 05:24 RBC 4.95 Mil/uL (4.40-5.90) 02/05/18 05:24 Hgb 13.6 g/dL (12.0-18.0) 02/05/18 05:24 Hct 41.3 % (35.0-51.0) 02/05/18 05:24 MCV 83.4 fl (80.0-94.0) 02/05/18 05:24 MCH 27.5 pg (27.0-31.0) 02/05/18 05:24 MCHC 32.9 g/dL (33.0-37.0) L 02/05/18 05:24 RDW 16.9 % (11.5-14.5) H 02/05/18 05:24 Plt Count 141 K/uL (130-400) 02/05/18 05:24 MPV 9.2 fl (7.2-11.7) 02/03/18 04:20 Neut % (Auto) 77.4 % (50.0-75.0) H 02/03/18 04:20 Lymph % (Auto) 12.4 % (20.0-40.0) L 02/03/18 04:20 [place]in % (Auto) 9.4 % (0.0-10.0) 02/03/18 04:20 Eos % (Auto) 0.4 % (0.0-4.0) 02/03/18 04:20 Baso % (Auto) 0.4 % (0.0-2.0) 02/03/18 04:20 Neut # (Auto) 8.2 K/uL (1.8-7.0) H 02/03/18 04:20 Lymph # (Auto) 1.3 K/uL (1.0-4.3) 02/03/18 04:20 Hardin # (Auto) 1.0 K/uL (0.0-0.8) H 02/03/18 04:20 Eos # (Auto) 0.0 K/uL (0.0-0.7) 02/03/18 04:20 Baso # (Auto) 0.0 K/uL (0.0-0.2) 02/03/18 04:20 Neutrophils % (Manual) 79 % (42-75) H 02/02/18 21:48 Band Neutrophils % 4 % (0-2) H 02/02/18 21:48 Lymphocytes % (Manual) 6 % (20-50) L 02/02/18 21:48 Reactive Lymphs % 8 % (0-0) H 02/02/18 21:48 Monocytes % (Manual) 2 % (0-10) 02/02/18 21:48 Eosinophils % (Manual) 1 % (0-7) 02/02/18 21:48 Platelet Estimate Normal (NORMAL) 02/02/18 21:48 Poikilocytosis (manual Slight 02/02/18 21:48 Anisocytosis (manual) Slight 02/02/18 21:48 Ovalocytes Slight 02/02/18 21:48 ESR 13 mm/hr (0-20) 02/04/18 16:40 pO2 41 mm/Hg (30-55) 02/02/18 23:18 VBG pH 7.48 (7.32-7.43) H 02/02/18 23:18 VBG pCO2 33 mmHg (40-60) L 02/02/18 23:18 VBG HCO3 25.7 mmol/L 02/02/18 23:18 VBG Total CO2 25.6 mmol/L (22-28) 02/02/18 23:18 VBG O2 Sat (Calc) 88.1 % (40-65) H 02/02/18 23:18 VBG Base Excess 1.6 mmol/L (0.0-2.0) 02/02/18 23:18 VBG Potassium 3.5 mmol/L (3.6-5.2) L 02/02/18 23:18 Sodium 135.0 mmol/L (132-148) 02/02/18 23:18 Chloride 102.0 mmol/L (98-107) 02/02/18 23:18 Glucose 111 mg/dL (75-110) H 02/02/18 23:18 Lactate 1.3 mmol/L (0.7-2.1) 02/02/18 23:18 FiO2 21.0 % 02/02/18 23:18 Sodium 139 mmol/l (132-148) 02/06/18 04:45 Potassium 3.8 MMOL/L (3.6-5.0) 02/06/18 04:45 Chloride 107 mmol/L (98-107) 02/06/18 04:45 Carbon Dioxide 25 mmol/L (22-30) 02/06/18 04:45 Anion Gap 11 (10-20) 02/06/18 04:45 BUN 13 mg/dl (9-20) 02/06/18 04:45 Creatinine 1.2 mg/dl (0.8-1.5) 02/06/18 04:45 Est GFR ( Amer) > 60 02/06/18 04:45 Est GFR (Non-Af Amer) 59 02/06/18 04:45 POC Glucose (mg/dL) 216 mg/dL (65-110) H 02/08/18 11:06 Random Glucose 78 mg/dL (75-110) 02/06/18 04:45 Hemoglobin A1c 9.8 % (4.2-6.5) H 02/04/18 05:00 Calcium 8.7 mg/dL (8.4-10.2) 02/06/18 04:45 Total Bilirubin 1.1 mg/dl (0.2-1.3) 02/02/18 21:48 AST 16 U/L (17-59) L 02/02/18 21:48 ALT 21 U/L (21-72) 02/02/18 21:48 Alkaline Phosphatase 85 U/L (38-126) 02/02/18 21:48 Troponin I 0.0450 ng/mL (0.00-0.120) 02/02/18 21:48 Total Protein 7.5 G/DL (6.3-8.2) 02/02/18 21:48 Albumin 4.3 g/dL (3.5-5.0) 02/02/18 21:48 Globulin 3.2 gm/dL (2.2-3.9) 02/02/18 21:48 Albumin/Globulin Ratio 1.4 (1.0-2.1) 02/02/18 21:48 Venous Blood Potassium 3.5 mmol/L (3.6-5.2) L 02/02/18 23:18 Urine Color Yellow (YELLOW) 02/02/18 21:48 Urine Clarity Slighty-cloudy (Clear) 02/02/18 21:48 Urine pH 5.0 (5.0-8.0) 02/02/18 21:48 Ur Specific [place] 1.015 (1.003-1.030) 02/02/18 21:48 Urine Protein >=500 mg/dL (NEGATIVE) 02/02/18 21:48 Urine Glucose (UA) >=500 mg/dL (Normal) 02/02/18 21:48 Urine Ketones Negative mg/dL (NEGATIVE) 02/02/18 21:48 Urine Blood Small (NEGATIVE) 02/02/18 21:48 Urine Nitrate Negative (NEGATIVE) 02/02/18 21:48 Urine Bilirubin Negative (NEGATIVE) 02/02/18 21:48 Urine Urobilinogen 0.2-1.0 mg/dL (0.2-1.0) 02/02/18 21:48 Ur Leukocyte Esterase Neg Navid/uL (Negative) 02/02/18 21:48 Urine RBC (Auto) 4 /hpf (0-3) H 02/02/18 21:48 Urine Microscopic WBC < 1 /hpf (0-5) 02/02/18 21:48 Ur Squamous Epith Cells < 1 /hpf (0-5) 02/02/18 21:48 Vancomycin Trough 10.0 ug/mL (5.0-10.0) 02/07/18 07:25 - Hospital Course Hospital Course: 72 years old male with hx of DM, chronic non healing right great toe ulcer, CKD , came in with fever and chills and mild dizziness. Pt was admitted and started on IV antibiotics. Blood and Wound Culturtes done. Podiatry and ID consulted. MRI of the Foot : Prominent osseous deformity noted at the level of the 1st proximal phalanx extending to the level of the mid 1st metatarsal head as well as the base of the 1st distal phalanx. At this level, there is prominent signal changes with decreased T1 signal and increased STIR signal. Prominent reticulation and edema is noted within the adjacent subcutaneous soft tissues. Fluid at the 1st MTP joint space. Signal change also noted within the medial sesamoid bone with decreased T1 signal and increased STIR signal. These changes may be the sequelae of acute infectious and or inflammatory changes such as acute osteomyelitis. In the setting of postsurgical changes this may represent superimposed acute infectious changes on the postsurgical changes. Given the extent of the signal abnormality within the 1st proximal phalanx underlying osteonecrosis cannot be excluded. Clinical correlation. 1. Acute Cellulitis, right foot s/p Debridement Pt has a chronic non healing ulcer at the right great toe - came in with fever 102.8 and leukocytosis - s/p Debridement - Consulted Dr Ball ID - rec IV Vanco and Zosyn then switch to PO Bactrim for 4 more weeks as outpt - Podiatry Consulted - as per DR Alvarez - no acute OM - ECHO : no vegetation - Wound Gram Stain : few Gram neg rds and few Gram + cocci ( c/s: final Coag Neg Staph) - Blood c/s : neg - leukocytosis resolved, fever resolved - Doppler US of LE : neg 2. Dehydration - gentle IV fluid hydration 3. DM II with hypoglycemia - decrease Levemir to 30 unit BID - Lispro sliding scale according to accucheck - [id number] -ff up with PMD for better control of DM 4. HTN cont Norvasc, Lisinopril, Hydralazine 5. CAD, stable Nuclear Stress test done 11/18 : small fixed defect - cont ASA, Statin, JENIFER - Dr Vaughn consulted DVT prophylaxis with Lovenox Discharge Exam - Head Exam Head Exam: ATRAUMATIC, NORMAL INSPECTION, NORMOCEPHALIC - Eye Exam Eye Exam: Normal appearance Pupil Exam: NORMAL ACCOMODATION - ENT Exam ENT Exam: Mucous Membranes Moist, Normal External Ear Exam - Neck Exam Neck exam: Full Rom - Respiratory Exam Respiratory Exam: NORMAL BREATHING PATTERN. absent: Respiratory Distress - Cardiovascular Exam Cardiovascular Exam: REGULAR RHYTHM, +S1, +S2 - GI/Abdominal Exam GI & Abdominal Exam: Normal Bowel Sounds, Soft. absent: Tenderness - Extremities Exam Extremities exam: normal capillary refill Additional comments: no calf tenderness - Back Exam Back exam: absent: CVA tenderness (L), CVA tenderness (R) - Neurological Exam Neurological exam: Alert, CN II-XII Intact, Oriented x3 - Psychiatric Exam Psychiatric exam: Normal Affect, Normal Mood - Skin Skin Exam: Dry, Normal Color, Warm Discharge Plan - Discharge Medications Prescriptions: hydrALAZINE [Apresoline] 25 mg PO QID #120 tab Lactobacillus Acidophilus [Bacid Acidophilus] 1 cap PO BID #60 cap Sulfamethoxazole/Trimethoprim [Bactrim DS 800 mg-160 mg] 1 tab PO BID #60 tab - Follow Up Plan Condition: IMPROVED Disposition: HOME/ ROUTINE Instructions: Cellulitis (Skin Infection), Adult (DC) Additional Instructions: ff up with Dr Alvarez in 3 days ff up with Dr Ball in 1 wk ff up with Dr Vaughn in 1-2 wks Referrals: Brenda Ball MD [Family Provider] - Wilton Alvarez DPM [Staff Provider] - Evangelist Vaughn MD [Staff Provider] -
[2018-02-08 13:58] VITALS: PULSE 58
[2018-02-08 15:06] VITALS: BP 132/74
--- NOTE | 2018-02-08 15:54 | CP.PCM.PN ---
Subjective - Date & Time of Evaluation Date of Evaluation: 02/08/18 Time of Evaluation: 15:53 - Subjective Subjective: wound improving afebrile Objective - Vital Signs/Intake and Output Vital Signs (last 24 hours): Temp Pulse Resp BP Pulse Ox 97.9 F 58 L 18 132/74 98 02/08/18 12:08 02/08/18 13:57 02/08/18 12:08 02/08/18 15:05 02/08/18 12:08 - Medications Medications: Current Medications Allopurinol (Zyloprim) 300 mg PO DAILY [facility] Last Admin: 02/08/18 08:46 Dose: 300 mg Amlodipine Besylate (Norvasc) 10 mg PO DAILY [facility] Last Admin: 02/08/18 08:46 Dose: 10 mg Aspirin (Aspirin Chewable) 81 mg PO DAILY [facility] Last Admin: 02/08/18 08:48 Dose: 81 mg Atorvastatin Calcium (Lipitor) 10 mg PO DAILY@2200 [facility] Last Admin: 02/07/18 21:54 Dose: 10 mg Dextrose (Dextrose 50% Inj) 0 ml IV STAT PRN; Protocol PRN Reason: Hypoglycemia Protocol Dextrose (Glutose 15) 0 gm PO ONCE PRN; Protocol PRN Reason: Hypoglycemia Protocol Enoxaparin Sodium (Lovenox) 40 mg SC DAILY [facility] PRN Reason: Protocol Last Admin: 02/08/18 08:47 Dose: 40 mg Finasteride (Proscar) 5 mg PO DAILY [facility] Last Admin: 02/08/18 08:51 Dose: 5 mg Glucagon (Glucagen Diagnostic Kit) 0 mg IM STAT PRN; Protocol PRN Reason: Hypoglycemia Protocol Hydralazine HCl (Apresoline) 25 mg PO TID [facility] Last Admin: 02/08/18 13:58 Dose: Not Given Piperacillin Sod/Tazobactam (Sod 3.375 gm/ Sodium Chloride) 100 mls @ 100 mls/ hr IVPB Q8 [facility] PRN Reason: Protocol Last Admin: 02/08/18 09:10 Dose: 100 mls/hr Vancomycin HCl 750 mg/ Sodium (Chloride) 250 mls @ 166.667 mls/hr IVPB Q12 [facility] PRN Reason: Protocol Last Admin: 02/08/18 08:52 Dose: 166.667 mls/hr Insulin Detemir (Levemir) 30 units SC BID [facility] Last Admin: 02/08/18 08:49 Dose: 30 unit Insulin Human Lispro (Humalog) 0 units SC ACHS [facility] PRN Reason: Protocol Last Admin: 02/08/18 13:59 Dose: 3 u Lisinopril (Zestril) 20 mg PO BID [facility] Last Admin: 02/08/18 08:51 Dose: 20 mg Pregabalin (Lyrica) 150 mg PO BID [facility] Last Admin: 02/08/18 09:05 Dose: 150 mg Sertraline HCl (Zoloft) 50 mg PO DAILY [facility] Last Admin: 02/08/18 08:51 Dose: 50 mg - Labs Labs: 02/05/18 05:24 02/06/18 04:45 - Constitutional Appears: Well - Head Exam Head Exam: ATRAUMATIC, NORMAL INSPECTION, NORMOCEPHALIC - Eye Exam Eye Exam: EOMI, Normal appearance, PERRL Pupil Exam: NORMAL ACCOMODATION, PERRL - ENT Exam ENT Exam: Mucous Membranes Moist, Normal Exam - Neck Exam Neck Exam: Full ROM, Normal Inspection. absent: Lymphadenopathy - Respiratory Exam Respiratory Exam: Clear to Ausculation Bilateral, NORMAL BREATHING PATTERN - Cardiovascular Exam Cardiovascular Exam: REGULAR RHYTHM, +S1, +S2. absent: Murmur - GI/Abdominal Exam GI & Abdominal Exam: Soft, Normal Bowel Sounds. absent: Tenderness - Extremities Exam Extremities Exam: Full ROM, Normal Capillary Refill, Normal Inspection. absent : Joint Swelling, Pedal Edema - Back Exam Back Exam: NORMAL INSPECTION - Neurological Exam Neurological Exam: Alert, Awake, CN II-XII Intact, Normal Gait, Oriented x3 - Psychiatric Exam Psychiatric exam: Normal Affect, Normal Mood - Skin Skin Exam: Dry, Intact, Normal Color, Warm Assessment and Plan (1) PVD (peripheral vascular disease) Assessment & Plan: stable to nh home Status: Acute (2) CAD (coronary artery disease) Status: Acute (3) HTN (hypertension) Status: Acute (4) Fever in adult Status: Acute (5) Foot ulcer Status: Acute
== END 2018-02-08 15:25 | disposition home or self-care (01) | DRG 872 ==
LOC: H.ER 19:25 → H.ERHOLD 22:56 → H.TEL 02-03 00:10 → OBSVTOIN 02-03 14:51 → H.TEL 02-07 10:22
PROVIDERS: ADMIT Internal Medicine; ATTEND Internal Medicine
PROC: 0HBMXZZ Excision of Right Foot Skin, External Approach (ICD-10-PCS; principal; 2018-02-03)
DX: A41.9 Sepsis, unspecified organism (principal); L03.115 Cellulitis of right lower limb; L97.518 Non-pressure chronic ulcer of other part of right foot with other specified severity; B95.7 Other staphylococcus as the cause of diseases classified elsewhere; E11.621 Type 2 diabetes mellitus with foot ulcer; E11.51 Type 2 diabetes mellitus with diabetic peripheral angiopathy without gangrene; E11.65 Type 2 diabetes mellitus with hyperglycemia; E11.649 Type 2 diabetes mellitus with hypoglycemia without coma; E11.22 Type 2 diabetes mellitus with diabetic chronic kidney disease; I12.9 Hypertensive chronic kidney disease with stage 1 through stage 4 chronic kidney disease, or unspecified chronic kidney disease; N18.9 Chronic kidney disease, unspecified; I25.10 Atherosclerotic heart disease of native coronary artery without angina pectoris; E86.0 Dehydration; E78.5 Hyperlipidemia, unspecified; E78.00 Pure hypercholesterolemia, unspecified; I44.0 Atrioventricular block, first degree; I45.10 Unspecified right bundle-branch block; Z96.651 Presence of right artificial knee joint; R26.81 Unsteadiness on feet; N40.0 Benign prostatic hyperplasia without lower urinary tract symptoms; M19.90 Unspecified osteoarthritis, unspecified site; Z90.5 Acquired absence of kidney; Z91.81 History of falling; Z79.4 Long term (current) use of insulin; Z79.84 Long term (current) use of oral hypoglycemic drugs; Z87.442 Personal history of urinary calculi; Z86.19 Personal history of other infectious and parasitic diseases